=== PATIENT | male | born 1955 | race Caucasian/White ===

== ENCOUNTER 2018-12-02 22:36 | Emergency (ER) | payer MEDICARE, OTHER ==
[~2018-12-02] VITALS: Ht 175.3 cm; Wt 90.7 kg
[~2018-12-02 22:36] MED LIST: ACET500T68 PO; ASPI-482 PO; CALC500T13 PO; CHOL2000 PO; DIVA250T PO; DIVA500T17 PO; DONE10TA7 PO; FLUO40CA9 PO; FLUT9.9S NS; GABA300C18 PO; GEMF600T8 PO; HYDR-2761 PO; HYDR25SU4 RC; LORA10TA68 PO; MODA100T2 PO; MONT10TA9 PO; MULT1TAB52 PO; NIAC1000 PO; OXYB5TAB7 PO; RISP2TAB33 PO; SODI51CR DT; [UNRECOGNIZED DRUG - CODE] TP
[2018-12-02 22:42] VITALS: BP 133/79
[2018-12-02] MEDS ORDERED: DIPH25CA58 PO (23:34)
--- NOTE | 2018-12-02 23:35 | PHYS DOC ---
Past Medical History Past Medical History: Asthma, Dementia, Pancreatitis, Seizure Additional Past Medical Histor: CEREBRAL PALSY, SLEEP APNEA, (MALACHI COLLAZO C SOFTWARE DEVELOPER) Alcohol Use: None Drug Use: None [facility] SOFTWARE DEVELOPER) Adult General Chief Complaint Chief Complaint: SKIN PROBLEM HPI HPI Patient is a 63 year old male who presents with some assisted living and began having a rash that was red and blotchy to the legs and abdomen and on his arm. Patient states it was very itchy. EMS gave patient 50 mg of Benadryl before arrival. (MALACHI COLLAZO C SOFTWARE DEVELOPER) Review of Systems Review of Systems Constitutional: Denies fever or chills [] Eyes: Denies change in visual acuity, redness, or eye pain [] HENT: Denies nasal congestion or sore throat [] Respiratory: Denies cough or shortness of breath [] Cardiovascular: No additional information not addressed in HPI [] GI: Denies abdominal pain, nausea, vomiting, bloody stools or diarrhea [] : Denies dysuria or hematuria [] Musculoskeletal: Denies back pain or joint pain [] Integument: rash or skin lesions [] Neurologic: Denies headache, focal weakness or sensory changes [] All other systems were reviewed and found to be within normal limits, except as documented in this note. ([facility] C SOFTWARE DEVELOPER) Allergies Allergies Allergies Coded Allergies Type Severity Reaction Last Updated Verified No Known Drug Allergies 06/28/17 No (VENECIA CHARLES MD) Physical Exam Physical Exam Constitutional: Well developed, well nourished, no acute distress, non-toxic appearance. [] HENT: Normocephalic, atraumatic, bilateral external ears normal, oropharynx moist, no oral exudates, nose normal. [] Eyes: PERRLA, EOMI, conjunctiva normal, no discharge. [] Neck: Normal range of motion, no tenderness, supple, no stridor. [] Cardiovascular:Heart rate regular rhythm, no murmur [] Lungs & Thorax: Bilateral breath sounds clear to auscultation [] Abdomen: Bowel sounds normal, soft, no tenderness, no masses, no pulsatile masses. [] Skin: Warm, dry, no erythema, + rash. [] Back: No tenderness, no CVA tenderness. [] Extremities: No tenderness, no cyanosis, no clubbing, ROM intact, no edema. [] Neurologic: Alert and oriented X 3, normal motor function, normal sensory function, no focal deficits noted. [] Psychologic: Affect normal, judgement normal, mood normal. [] (MALACHI COLLAZO APRN) Current Patient Data Vital Signs Vital Signs Date Time Temp Pulse Resp B/P (MAP) Pulse Ox O2 Delivery O2 Flow Rate FiO2 12/02/18 22:42 98.3 77 18 133/79 (97) 98 Room Air 98.3 (VENECIA CHARLES MD) EKG EKG [] (MALACHI COLLAZO APRN) Radiology/Procedures Radiology/Procedures [] (MALACHI COLLAZO APRN) Course & Med Decision Making Course & Med Decision Making Patient is a 63 year old male who presents with some assisted living and began having a rash that was red and blotchy to the legs and abdomen and on his arm. Patient states it was very itchy. EMS gave patient 50 mg of Benadryl before arrival. Alert and oriented to self and place. Patient has contractures. Patient states he was itchy and he had a rash but he no longer does. When looking over patient's body there is very slight pink almost the same skin color as rest of his body is blotchy areas of where look to be hives were. Tongue is not swollen, no lesions and mouth are seen. Patient speaks in full clear sentences. Lungs are clear to auscultation in all lobes. Vital signs are within normal limits. Patient will be given discharge instructions for an allergic reaction and facility should continue to give him Benadryl every 6 hours for next 24-48 hours. Patient begins having trouble breathing or tongue begins to swell or hives return he should seek medical help immediately. (MALACHI COLLAZO APRN) Course & Med Decision Making Staff Physician Addendum: I was working in the ER during the course of this patient's visit. I was available for consultation as needed, but I was not directly involved in the care of this patient. (VENECIA CHARLES MD) Dragon Disclaimer Dragon Disclaimer This electronic medical record was generated, in whole or in part, using a voice recognition dictation system. (MALACHI COLLAZO APRN) Departure Departure Impression: Primary Impression: Allergic reaction Disposition: HOME, SELF-CARE Condition: STABLE Referrals: JANNY CULLEN MD (PCP) Patient Instructions: Rash Additional Instructions: Follow up with primary care. Give Benadryl every 6 hours for the next 24-48 hours. If patient begin to have swelling of the tongue, throat or severe hives appears give Benadryl and return to emergency room. Scripts Diphenhydramine Hcl (BENADRYL) 25 Mg Capsule 25 MG PO Q4-6HRS PRN for ALLERGIES, #8 CAP Prov: MALACHI COLLAZO APRN 12/02/18 Problem Qualifiers Primary Impression: Allergic reaction Encounter type: initial encounter Qualified Codes: T78.40XA - Allergy, unspecified, initial encounter MALACHI COLLAZO APRN Dec 02, 2018 23:35 VENECIA CHARLES MD Dec 04, 2018 00:31
== END 2018-12-03 00:10 | disposition home or self-care (01) ==
LOC: ER 22:36
DX: T78.40XA Allergy, unspecified, initial encounter (principal); J45.909 Unspecified asthma, uncomplicated; F03.90 Unspecified dementia, unspecified severity, without behavioral disturbance, psychotic disturbance, mood disturbance, and anxiety; X58.XXXA Exposure to other specified factors, initial encounter
CPT/HCPCS: 99283

== ENCOUNTER 2020-04-18 13:30 | Inpatient (IN) | payer MEDICARE, OTHER ==
[2020-04-18] VITALS (7 sets, daily range): BP systolic 121–140; BP diastolic 62–79
[~2020-04-18] VITALS: Ht 175.3 cm; Wt 103.0 kg
[~2020-04-18 13:30] MED LIST changes: +ACET325T21 PO; +CALC-326 PO; -CALC500T13 PO; +CALC500T14 PO; +CEFTRIAXONE SODIUM IVP; +DIPH25CA58 PO; +DIVA-51 PO; +DIVA-53 PO; +DOXY100T PO; +FLUO40CA2 PO; +GABA-585 PO; +MONT10TA49 PO; -MONT10TA9 PO; +MULT-245 PO; +MULT-445 PO; -MULT1TAB52 PO; +OXYB5TAB10 PO; -OXYB5TAB7 PO; +POTA20TA4 PO; +RISP0.5T24 PO; +SENN-37 PO; +VENTOLIN HFA18 GM INH
[2020-04-18] MEDS ORDERED: diphenhydrAMINE 50 MG/ML VIAL IVP ONE (14:00)
[2020-04-18] MEDS ORDERED: FAMOTIDINE 20 MG/2 ML VIAL IVP ONE (14:00)
[2020-04-18] MEDS ORDERED: EPINEPHrine 1 MG/ML VIAL SQ ONE (14:00)
[2020-04-18] MEDS ORDERED: cefTRIAXone IV Push 1 GM VIAL. IVP ONE (14:00)
[2020-04-18] MEDS ORDERED: DEXAMETHASONE SOD PHOS 4 MG/ML VIAL IVP ONE (14:00)
[2020-04-18] MEDS ORDERED: ALBUTEROL SULFATE 2.5 MG/3 ML NEBU. NEB ONE (14:00)
[2020-04-18 14:07] LABS: BASO # 0.1 x10^3/uL (0.0-0.2); BASO % 1 % (0-3); EOS % 0 % (0-3); HEMATOCRIT 38.4 % (39.0-53.0); HEMOGLOBIN 13.2 g/dL (13.0-17.5); LYMPH # 2.5 x10^3/uL (1.0-4.8); LYMPH % 30 % (24-48); MEAN CORPUSCULAR HEMOGLOBIN 34 pg (25-35); MEAN CORPUSCULAR HGB CONC 34 g/dL (31-37); MEAN CORPUSCULAR VOLUME 98 fL (79-100); MONO # 0.7 x10^3/uL (0.0-1.1); MONO % 8 % (0-9); NEUT # 5.1 x10^3/uL (1.8-7.7); NEUT % 61 % (31-73); PLATELET COUNT 64 x10^3/uL (140-400); RED BLOOD COUNT 3.93 x10^6/uL (4.30-5.70); RED CELL DISTRIBUTION WIDTH 14.4 % (11.5-14.5); WHITE BLOOD COUNT 8.3 x10^3/uL (4.0-11.0)
--- NOTE | 2020-04-18 14:13 | RAD ---
CHEST AP ONLY Clinical History: Reason: Coughs continusly sob, covid? / Spl. Instructions: / History: Technique: AP view of the chest was obtained at 04/18/2020 1:44 PM. Comparison: February 29, 2020. Findings: The heart is normal size. There is low lung volumes causing crowding of pulmonary vasculature. There is patchy perihilar opacities left worse than right. There is elevation of the right hemidiaphragm seen previously. Impression: Bilateral infiltrates likely atypical pneumonia. Electronically signed by: Jered Moreno III, MD (04/18/2020 2:10 PM) [id number]
[2020-04-18 15:42] LABS: CALCIUM 7.9 mg/dL (8.5-10.1); CREATININE 1.2 mg/dL (0.7-1.3); GFR 61.3; POTASSIUM 4.4 mmol/L (3.5-5.1)
[2020-04-18 15:48] LABS: ALBUMIN 2.1 g/dL (3.4-5.0); ALBUMIN/GLOBULIN RATIO 0.6 (1.0-1.7); TOTAL BILIRUBIN 0.6 mg/dL (0.2-1.0); TOTAL PROTEIN 5.7 g/dL (6.4-8.2)
--- NOTE | 2020-04-18 16:38 | PHYS DOC ---
Past Medical History Past Medical History: Asthma, Dementia, Pancreatitis, Seizure Additional Past Medical Histor: CEREBRAL PALSY, SLEEP APNEA, Past Surgical History: Other Additional Past Surgical Histo: unknown Smoking Status: Never Smoker Alcohol Use: None Drug Use: None General Adult EDM: Chief Complaint: SHORTNESS OF BREATH HPI: HPI: Patient is a 64 year old male who presents with respiratory distress. Patient has a history of cerebral palsy and is unable to provide very much history. According to report he is at his baseline mental status. Patient tested positive for alvarez virus last week. He has had an increasing oxygen requirement over the last 2 days. Upon arrival of the EMS he was on room air and had oxygen saturations in the 80s. They placed him on a nonrebreather with significant improvement. Review of Systems: Review of Systems: Unable to obtain due to mental status Heart Score: Risk Factors: Risk Factors: DM, Current or recent (<one month) smoker, HTN, HLP, family history of CAD, obesity. Risk Scores: Score 0 - 3: 2.5% MACE over next 6 weeks - Discharge Home Score 4 - 6: 20.3% MACE over next 6 weeks - Admit for Clinical Observation Score 7 - 10: 72.7% MACE over next 6 weeks - Early Invasive Strategies Current Medications: Current Medications Medications (Trade) Dose Ordered Sig/Wendy Start Time Stop Time Status Last Admin Dose Admin Albuterol Sulfate (Ventolin Neb Soln) 2.5 mg 1X ONCE 04/18/20 14:04/18/20 14:01 DC 04/18/20 14:01 2.5 MG Ceftriaxone Sodium (Rocephin) 1 gm 1X ONCE 04/18/20 14:04/18/20 14:01 DC 04/18/20 13:56 1 GM Dexamethasone Sodium Phosphate (Decadron) 10 mg 1X ONCE 04/18/20 14:04/18/20 14:01 DC 04/18/20 13:56 10 MG Diphenhydramine HCl (Benadryl) 25 mg 1X ONCE 04/18/20 14:04/18/20 14:01 DC 04/18/20 13:55 25 MG Epinephrine HCl (Adrenalin) 0.3 mg 1X ONCE 04/18/20 14:04/18/20 14:01 DC 04/18/20 13:56 0.3 MG Famotidine (Pepcid Vial) 20 mg 1X ONCE 04/18/20 14:00 04/18/20 14:01 DC 04/18/20 13:55 20 MG Allergies: Allergies: Allergies Coded Allergies Type Severity Reaction Last Updated Verified No Known Drug Allergies 06/28/17 No Physical Exam: PE: General: Awake, contractures to right hand, ill-appearing HEENT: Atraumatic, EOMI, PERRL, airway patent, moist oral mucosa, mild swelling of lower lip Neck: Supple, trachea midline Respiratory: Decreased breath sounds bilaterally, diffuse crackles, increased work of breathing, tachypnea CV: Tachycardic, no murmur, cap refill <2 GI: Soft, nondistended, nontender, no masses MSK: No obvious deformities Skin: Warm, dry, intact, diffuse hives Neuro: sensory and motor grossly intact, no focal deficits Psych: Anxious, not suicidal or homicidal Current Patient Data: Labs: Laboratory Tests Test 04/18/20 13:50 04/18/20 15:00 White Blood Count 8.3 x10^3/uL (4.0-11.0) Red Blood Count 3.93 x10^6/uL (4.30-5.70) L Hemoglobin 13.2 g/dL (13.0-17.5) Hematocrit 38.4 % (39.0-53.0) L Mean Corpuscular Volume 98 fL (79-100) Mean Corpuscular Hemoglobin 34 pg (25-35) Mean Corpuscular Hemoglobin Concent 34 g/dL (31-37) Red Cell Distribution Width 14.4 % (11.5-14.5) Platelet Count 64 x10^3/uL (140-400) L Neutrophils (%) (Auto) 61 % (31-73) Lymphocytes (%) (Auto) 30 % (24-48) Monocytes (%) (Auto) 8 % (0-9) Eosinophils (%) (Auto) 0 % (0-3) Basophils (%) (Auto) 1 % (0-3) Neutrophils # (Auto) 5.1 x10^3/uL (1.8-7.7) Lymphocytes # (Auto) 2.5 x10^3/uL (1.0-4.8) Monocytes # (Auto) 0.7 x10^3/uL (0.0-1.1) Eosinophils # (Auto) 0.0 x10^3/uL (0.0-0.7) Basophils # (Auto) 0.1 x10^3/uL (0.0-0.2) D-Dimer (Yasmin) > 20.00 ug/mlFEU Lactic Acid Level 2.4 mmol/L (0.4-2.0) H Sodium Level 139 mmol/L (136-145) Potassium Level 4.4 mmol/L (3.5-5.1) Chloride Level 102 mmol/L (98-107) Carbon Dioxide Level 21 mmol/L (21-32) Anion Gap 16 (6-14) H Blood Urea Nitrogen 23 mg/dL (8-26) Creatinine 1.2 mg/dL (0.7-1.3) Estimated GFR (Cockcroft-Gault) 61.3 BUN/Creatinine Ratio 19 (6-20) Glucose Level 199 mg/dL (70-99) H Calcium Level 7.9 mg/dL (8.5-10.1) L Total Bilirubin 0.6 mg/dL (0.2-1.0) Aspartate Amino Transferase (AST) 25 U/L (15-37) Alanine Aminotransferase (ALT) 6 U/L (16-63) L Alkaline Phosphatase 75 U/L (46-116) Lactate Dehydrogenase 302 U/L (85-227) H Creatine Kinase 26 U/L (39-308) L Troponin I Quantitative < 0.017 ng/mL (0.000-0.055) C-Reactive Protein, Quantitative 185.0 mg/L (0-3.3) H NE-Sgq-B-Type Natriuretic Peptide 400 pg/mL (0-124) H Total Protein 5.7 g/dL (6.4-8.2) L Albumin 2.1 g/dL (3.4-5.0) L Albumin/Globulin Ratio 0.6 (1.0-1.7) L Laboratory Tests 04/18/20 13:50 Laboratory Tests 04/18/20 15:00 Vital Signs: Vital Signs Date Time Temp Pulse Resp B/P (MAP) Pulse Ox O2 Delivery O2 Flow Rate FiO2 04/18/20 14:13 92 NonRebreather Mask 15.0 04/18/20 13:30 98.5 99 25 133/64 (87) 98.5 EKG: EKG: [] Radiology/Procedures: Radiology/Procedures: [] Course & Med Decision Making: Course & Med Decision Making Pertinent Labs and Imaging studies reviewed. (See chart for details) Patient is a 64-year-old male who presents to the emergency room with respiratory failure, high, mild swelling. It appears at this time that patient has 2 separate issues going on. He appears to have anaphylaxis given his hives and swelling. He was given epinephrine, Pepcid, Decadron, Benadryl. Hives and swelling resolved while here in the emergency room. Nursing facility cannot pinpoint any new medication or foods. They are unsure when the hives started. His oxygen requirement also decreased after these medications. Patient also has known coronavirus and does continue to require oxygen. He has diffuse crackles which are consistent with coronavirus. Patient will be admitted for respiratory failure and anaphylaxis. Dragon Disclaimer: Dragon Disclaimer: This electronic medical record was generated, in whole or in part, using a voice recognition dictation system. Departure Departure Impression: Primary Impression: Respiratory failure, acute Additional Impressions: 2019 novel coronavirus disease (COVID-19) Anaphylactic reaction Disposition: ADMITTED INPATIENT Condition: GUARDED Referrals: BRIANA WILLAMS MD (PCP) Justicifation of Admission Dx: Justifications for Admission: Justification of Admission Dx: Yes Respiratory Failure: Severe Resp Distress COVID-19 Assessment: COVID-19 Patient Risks: Age 65 or older: No Sign of co-morbidity: Yes Exp to person + for COVID: Yes Exp to PUI: Yes Travel from affected area: No Lower respiratory symptoms: Yes Fever: Yes PPE Use: Full PPE with N95 mask or PAPR: Yes Critical Care Time Critical Care: Authorized and Performed by: Awa Campos MD Total critical care time: approximately 45 minutes Due to a high probability of clinically significant, life threatening deterio ration, the patient required my highest level of preparedness to intervene emergently and I personally spent this critical care time directly and personally managing the patient. This critical care time included obtaining a history; examining the patient; pulse oximetry; ventilator management if nec essary; ordering and review of studies; arranging urgent treatment with development of a management plan; evaluation of patient's response to treatment; frequent reassessment; discussion with patient/family; and, discussions with other providers. This critical care time was performed to assess and manage the high probability of imminent, life-threatening deterioration that could result in multi-organ failure. It was exclusive of separately billable procedures and treating other patients and teaching time. Please see MDM section and the rest of the note for further information on patient assessment and treatment. AWA CAMPOS MD Apr 18, 2020 16:38
[2020-04-18] MEDS ORDERED: PIP/TAZO PER PHARMACY MC PRN (17:45)
--- NOTE | 2020-04-18 17:54 | HP ---
ADMIT DATE: 04/18/2020 CHIEF COMPLAINT: Respiratory distress. HISTORY OF PRESENT ILLNESS: The patient is a pleasant 64-year-old male who has cerebral palsy. He lives at a facility. He also had COVID-19 syndrome recently. Today, he apparently developed increasing oxygen requirements that has been occurring for 2 days. He was short of breath. He developed a rash. They brought him to the ER. It appears he probably had allergic reaction. We gave him some epinephrine, we are admitting him to the ICU. PAST MEDICAL HISTORY: Recent COVID-19, cerebral palsy, asthma, dementia, pancreatitis, sleep apnea. ALLERGIES: None. FAMILY HISTORY: Diabetes. SOCIAL HISTORY: I believe he lives at a facility. He does not drink, smoke or take drugs. MEDICATIONS: Reviewed, please refer to the MRAD. REVIEW OF SYSTEMS: Unable to obtain. PHYSICAL EXAMINATION: VITALS: Within normal limits and are stable. GENERAL: No apparent distress. Alert and oriented. HEENT: He has 100% nonrebreather. EYES: Extraocular muscles are intact, pupils are equally round and reactive to light and accommodation MUSCULOSKELETAL: Well developed, well nourished, good range of motion ENDOCRINE: No thyromegaly was palpated LYMPHATICS: No cervical chain or axillary nodes were noted HEMATOPOIETIC: No bruising NECK: Supple, no JVD, no thyromegaly was noted. LUNGS: He has some slight crackles. HEART: RRR, S1, S2 present. Peripheral pulses intact, no obvious murmurs were noted. ABDOMEN: Soft, nontender. Positive bowel sounds no organomegaly, normal bowel sounds. EXTREMITIES: Without any cyanosis, clubbing, or edema. Pedal pulses intact, Homans sign is negative. NEUROLOGIC: He does not really respond. PSYCHIATRIC: Normal affect, normal mood. Stable. SKIN: No ulcerations or rashes, good skin turgor, no jaundice. VASCULAR: Good capillary refill, neurovascular bundle appears to be intact. LABORATORY DATA: White count 8, hemoglobin 13, platelets 64. Electrolytes are normal. Troponin is 0. C-reactive protein 185. D-dimer is greater than 20. Chest x-ray; bilateral infiltrates with atypical pneumonia. ASSESSMENT AND PLAN: ICU monitoring. Allergic reaction, abnormal chest x-ray, history of COVID-19 an elevated D-dimer. The patient is being admitted. We will consult Pulmonary Medicine. Give him the allergic reaction protocol including steroids, epinephrine and breathing treatments, Pepcid. Home meds, DVT prophylaxis. Full code. PROGNOSIS: Guarded. KAYLEY ROMAN DO DR: ROSANA/travis JOB#: [id number] / [id number]
--- NOTE | 2020-04-18 18:21 | NUR ---
PT ARRIVED TO ICU AT APPROX 1730 VIA GURNEY WITH ER NURSE. PT CHANGED LITTLE INSERTED WOUND PHOTO TAKEN. PTS SISTER AND MEDICAL DPOA LASHONDA HAINES NOTIFIED THAT THE PT WAS HERE AND WHAT ROOM. [facility] CALLED BY THIS NURSE HOWEVER NO ANSWER. PT IS RESTING QUIETLY AT THIS TIME. WILL CONTINUE TO MONITOR. Addendum: 04/18/20 at 1838 by JARED FAM RN PTS SISTER LASHONDA ADELINA DID STATE THAT THE PT WAS IN FACT A FULL CODE. TRIED CALLING [facility] AGAIN AT [phone] AND REQUESTED EXACT COVID POSITIVE DATES. NURSE ALLISON WAS GIVEN THIS NUMBER TO CALL BACK WITH THE DATES. SHE STATES SHE IS AGENCY AND DOESN'T KNOW WHERE TO LOOK AND IS THE ONLY NURSE ON.
[2020-04-18] MEDS: PIPERACILLIN/TAZOBACTAM 4.5 GM in IV NORMAL SALINE 100ML 100 ML IV SCH (19:39)
[2020-04-18 19:42] LABS: BILIRUBIN,URINE LARGE (NEG); CLARITY,URINE CLEAR; NITRITE,URINE POSITIVE (NEG); PROTEIN,URINE 30 mg/dL (NEG-TRACE)
[2020-04-18 19:45] LABS: COLOR,URINE AMBER
[2020-04-18] MEDS ORDERED: VITS A & D/LANOLIN TOPICAL OINTMENT 42GM TUBE. TP PRN (19:45)
[2020-04-18] MEDS ORDERED: NYSTATIN TOPICAL POWDER 15GM BOTTLE. TP PRN (19:45)
[2020-04-18 19:46] LABS: HYALINE CASTS, URINE MANY /HPF
[2020-04-18 19:50] LABS: BACTERIA,URINE FEW /HPF (0-FEW); RBC,URINE 20-40 /HPF (0-2)
--- NOTE | 2020-04-18 19:50 | NUR ---
ESTEFANY NURSE AT [facility] RETURNED CALL TO STATE THAT THE PT HAD A COVID TEST 04/09/20 WITH POSITIVE RESULTS RETURNED ON 04/11/20.
[2020-04-18] MEDS: AZITHROMYCIN 500 MG in IV NORMAL SALINE 250ML 250 ML IV SCH (20:31)
[2020-04-18] MEDS ORDERED: FAMOTIDINE 20 MG TABLET. PO SCH (21:00)
[2020-04-18] MEDS: diphenhydrAMINE 50 MG/ML VIAL IVP SCH (22:12)
[2020-04-18] MEDS: IV NORMAL SALINE 1000ML BAG 1,000 ML IV SCH (22:13)
[2020-04-18] MEDS ORDERED: ENOXAPARIN 40 MG/0.4 ML SYRINGE. SQ SCH (23:00)
[2020-04-19] VITALS (23 sets, daily range): BP systolic 76–138; BP diastolic 46–77
[2020-04-19] MEDS: PIPERACILLIN/TAZOBACTAM 4.5 GM in IV NORMAL SALINE 100ML 100 ML IV SCH ×5 (00:11→23:49)
--- NOTE | 2020-04-19 03:03 | NUR ---
PT. REFUSES SUCTIONING AND ORAL CARE, BUT WAS ABLE TO DO LIP CARE.
[2020-04-19] MEDS ORDERED: ACETAMINOPHEN 325 MG TABLET. PO PRN (08:30)
[2020-04-19] MEDS: OXYBUTYNIN CHLORIDE 5 MG TABLET PO SCH ×2 (09:00→20:23)
[2020-04-19] MEDS: SENNOSIDES/DOCUSATE 8.6/50MG TABLET. PO SCH ×2 (09:00→20:24)
[2020-04-19] MEDS ORDERED: methylPREDNISolone SOD SUCC PF 40 MG/ML VIAL. IV SCH (09:00)
[2020-04-19] MEDS: CALCIUM CARB/VIT D3 500/200 TABLET. PO SCH (09:00)
[2020-04-19] MEDS: GABAPENTIN 100 MG CAPSULE. PO SCH ×2 (09:00→15:14)
[2020-04-19] MEDS: DONEPEZIL HCL 10 MG TABLET. PO SCH (09:00)
[2020-04-19] MEDS: DIVALPROEX DELAYED RELEASE 250 MG TABLET.DR. PO SCH (09:00)
[2020-04-19] MEDS ORDERED: AZITHRMYCN 500MG IVPB FOR OMNI 250 ML IV SCH (09:00)
[2020-04-19] MEDS: diphenhydrAMINE 50 MG/ML VIAL IVP SCH ×2 (11:22→20:23)
--- NOTE | 2020-04-19 12:11 | PDOC ---
PULMONARY PROGRESS NOTES Subjective Full note dictated# [id number] Vitals Vital Signs Date Time Temp Pulse Resp B/P (MAP) Pulse Ox O2 Delivery O2 Flow Rate FiO2 04/19/20 11:00 98.1 63 87 NonRebreather Mask 15.0 98.1 04/19/20 06:08 24 Comments Patient seen during the COVID- pandemic visual exam performed patient is resting comfortably on nonrebreather with no obvious signs of distress and no obvious rash or edema. Labs Laboratory Tests Test 04/18/20 13:50 04/18/20 15:00 04/18/20 17:30 04/18/20 17:40 White Blood Count 8.3 x10^3/uL (4.0-11.0) Red Blood Count 3.93 x10^6/uL (4.30-5.70) Hemoglobin 13.2 g/dL (13.0-17.5) Hematocrit 38.4 % (39.0-53.0) Mean Corpuscular Volume 98 fL (79-100) Mean Corpuscular Hemoglobin 34 pg (25-35) Mean Corpuscular Hemoglobin Concent 34 g/dL (31-37) Red Cell Distribution Width 14.4 % (11.5-14.5) Platelet Count 64 x10^3/uL (140-400) Neutrophils (%) (Auto) 61 % (31-73) Lymphocytes (%) (Auto) 30 % (24-48) Monocytes (%) (Auto) 8 % (0-9) Eosinophils (%) (Auto) 0 % (0-3) Basophils (%) (Auto) 1 % (0-3) Neutrophils # (Auto) 5.1 x10^3/uL (1.8-7.7) Lymphocytes # (Auto) 2.5 x10^3/uL (1.0-4.8) Monocytes # (Auto) 0.7 x10^3/uL (0.0-1.1) Eosinophils # (Auto) 0.0 x10^3/uL (0.0-0.7) Basophils # (Auto) 0.1 x10^3/uL (0.0-0.2) D-Dimer (Yasmin) > 20.00 ug/mlFEU Lactic Acid Level 2.4 mmol/L (0.4-2.0) 2.6 mmol/L (0.4-2.0) Sodium Level 139 mmol/L (136-145) Potassium Level 4.4 mmol/L (3.5-5.1) Chloride Level 102 mmol/L (98-107) Carbon Dioxide Level 21 mmol/L (21-32) Anion Gap 16 (6-14) Blood Urea Nitrogen 23 mg/dL (8-26) Creatinine 1.2 mg/dL (0.7-1.3) Estimated GFR (Cockcroft-Gault) 61.3 BUN/Creatinine Ratio 19 (6-20) Glucose Level 199 mg/dL (70-99) Calcium Level 7.9 mg/dL (8.5-10.1) Total Bilirubin 0.6 mg/dL (0.2-1.0) Aspartate Amino Transf (AST/SGOT) 25 U/L (15-37) Alanine Aminotransferase (ALT/SGPT) 6 U/L (16-63) Alkaline Phosphatase 75 U/L (46-116) Lactate Dehydrogenase 302 U/L (85-227) Creatine Kinase 26 U/L (39-308) Troponin I Quantitative < 0.017 ng/mL (0.000-0.055) C-Reactive Protein, Quantitative 185.0 mg/L (0-3.3) HC-Xse-B-Type Natriuretic Peptide 400 pg/mL (0-124) Total Protein 5.7 g/dL (6.4-8.2) Albumin 2.1 g/dL (3.4-5.0) Albumin/Globulin Ratio 0.6 (1.0-1.7) Urine Collection Type U cath Urine Color [place] Urine Clarity Clear Urine pH 6.0 (<5.0-8.0) Urine Specific [place] 1.025 (1.000-1.030) Urine Protein 30 mg/dL (NEG-TRACE) Urine Glucose (UA) 100 mg/dL (NEG) Urine Ketones (Stick) 40 mg/dL (NEG) Urine Blood Negative (NEG) Urine Nitrite Positive (NEG) Urine Bilirubin Large (NEG) Urine Urobilinogen Dipstick 1.0 mg/dL (0.2 mg/dL) Urine Leukocyte Esterase Small (NEG) Urine RBC 20-40 /HPF (0-2) Urine WBC 1-4 /HPF (0-4) Urine Bacteria Few /HPF (0-FEW) Urine Hyaline Casts Many /HPF Urine Mucus Marked /LPF Test 04/19/20 08:40 Lactic Acid Level 1.4 mmol/L (0.4-2.0) Laboratory Tests Test 04/18/20 13:50 04/18/20 15:00 04/18/20 17:30 04/18/20 17:40 White Blood Count 8.3 x10^3/uL (4.0-11.0) Red Blood Count 3.93 x10^6/uL (4.30-5.70) Hemoglobin 13.2 g/dL (13.0-17.5) Hematocrit 38.4 % (39.0-53.0) Mean Corpuscular Volume 98 fL (79-100) Mean Corpuscular Hemoglobin 34 pg (25-35) Mean Corpuscular Hemoglobin Concent 34 g/dL (31-37) Red Cell Distribution Width 14.4 % (11.5-14.5) Platelet Count 64 x10^3/uL (140-400) Neutrophils (%) (Auto) 61 % (31-73) Lymphocytes (%) (Auto) 30 % (24-48) Monocytes (%) (Auto) 8 % (0-9) Eosinophils (%) (Auto) 0 % (0-3) Basophils (%) (Auto) 1 % (0-3) Neutrophils # (Auto) 5.1 x10^3/uL (1.8-7.7) Lymphocytes # (Auto) 2.5 x10^3/uL (1.0-4.8) Monocytes # (Auto) 0.7 x10^3/uL (0.0-1.1) Eosinophils # (Auto) 0.0 x10^3/uL (0.0-0.7) Basophils # (Auto) 0.1 x10^3/uL (0.0-0.2) D-Dimer (Yasmin) > 20.00 ug/mlFEU Lactic Acid Level 2.4 mmol/L (0.4-2.0) 2.6 mmol/L (0.4-2.0) Sodium Level 139 mmol/L (136-145) Potassium Level 4.4 mmol/L (3.5-5.1) Chloride Level 102 mmol/L (98-107) Carbon Dioxide Level 21 mmol/L (21-32) Anion Gap 16 (6-14) Blood Urea Nitrogen 23 mg/dL (8-26) Creatinine 1.2 mg/dL (0.7-1.3) Estimated GFR (Cockcroft-Gault) 61.3 BUN/Creatinine Ratio 19 (6-20) Glucose Level 199 mg/dL (70-99) Calcium Level 7.9 mg/dL (8.5-10.1) Total Bilirubin 0.6 mg/dL (0.2-1.0) Aspartate Amino Transf (AST/SGOT) 25 U/L (15-37) Alanine Aminotransferase (ALT/SGPT) 6 U/L (16-63) Alkaline Phosphatase 75 U/L (46-116) Lactate Dehydrogenase 302 U/L (85-227) Creatine Kinase 26 U/L (39-308) Troponin I Quantitative < 0.017 ng/mL (0.000-0.055) C-Reactive Protein, Quantitative 185.0 mg/L (0-3.3) UQ-Ttz-I-Type Natriuretic Peptide 400 pg/mL (0-124) Total Protein 5.7 g/dL (6.4-8.2) Albumin 2.1 g/dL (3.4-5.0) Albumin/Globulin Ratio 0.6 (1.0-1.7) Urine Collection Type U cath Urine Color [place] Urine Clarity Clear Urine pH 6.0 (<5.0-8.0) Urine Specific [place] 1.025 (1.000-1.030) Urine Protein 30 mg/dL (NEG-TRACE) Urine Glucose (UA) 100 mg/dL (NEG) Urine Ketones (Stick) 40 mg/dL (NEG) Urine Blood Negative (NEG) Urine Nitrite Positive (NEG) Urine Bilirubin Large (NEG) Urine Urobilinogen Dipstick 1.0 mg/dL (0.2 mg/dL) Urine Leukocyte Esterase Small (NEG) Urine RBC 20-40 /HPF (0-2) Urine WBC 1-4 /HPF (0-4) Urine Bacteria Few /HPF (0-FEW) Urine Hyaline Casts Many /HPF Urine Mucus Marked /LPF Test 04/19/20 08:40 Lactic Acid Level 1.4 mmol/L (0.4-2.0) Medications Active Scripts Medications Dose Route/Sig Max Daily Dose Days Date Category Doxycycline Hyclate 100 Mg Tablet 100 Mg PO BID 10 03/06/20 Rx [Ceftriaxone Sodium] 2 GM Vial 2 Gm IVP Q24H 10 03/06/20 Rx Risperdal (Risperidone) 0.5 Mg Tablet 3.5 Mg PO QHS 02/29/20 Reported Risperdal (Risperidone) 2 Mg Tablet 2 Mg PO DAILY 02/29/20 Reported Divalproex Sodium 250 Mg Tablet. 750 Mg PO DAILY 02/29/20 Reported Fluoxetine Hcl 40 Mg Capsule 1 Cap PO HS 02/29/20 Reported Divalproex Sodium 500 Mg Tablet.dr 1,000 Mg PO HS 02/29/20 Reported Ventolin Hfa Inhaler (Albuterol Sulfate) 18 Gm Hfa.aer.ad 2 Puff INH PRN Q4HRS 02/29/20 Reported Oxybutynin Chloride 5 Mg Tablet 1 Tab PO BID 02/29/20 Reported Senokot-S Tablet (Sennosides/Docusate Sodium) 1 Each Tablet 1 Tab PO BID 30 02/29/20 Reported Gabapentin (Gabapentin) 100 Mg Capsule 100 Mg PO DAILY08 02/29/20 Reported Gabapentin (Gabapentin) 300 Mg Capsule 300 Mg PO HS 02/29/20 Reported Donepezil Hcl 10 Mg Tablet 1 Tab PO DAILY 02/29/20 Reported Modafinil 100 Mg Tablet 100 Mg PO DAILY 02/29/20 Reported Multi Vitamin Daily (Multivitamin) 1 Each Tablet 1 Tab PO DAILY 30 02/29/20 Reported Oyster Shell Calcium + D Tab (Calcium Carbonate/Vitamin D3) 1 Each Tablet 1 Tab PO DAILY 30 02/29/20 Reported Gabapentin (Gabapentin) 100 Mg Capsule 100 Mg PO DAILY16 02/29/20 Reported Acetaminophen 325 Mg Tablet 1 Tab PO PRN Q6HRS PRN 30 02/29/20 Reported Potassium Chloride (Potassium Chloride) 20 Meq Tablet.er 20 Meq PO BID 02/29/20 Reported Vitamin E Ointment (Vit E Acetate/Wheat Germ/Aloe) 60 Gm Oint...g. 60 Gm TP HS 06/20/17 Reported Niaspan (Niacin) 1,000 Mg Tab.er.24h 1,000 Mg PO HS 06/20/17 Reported Vitamin D (Cholecalciferol (Vitamin D3)) 2,000 Unit Capsule 2,000 Unit PO HS 06/20/17 Reported Aspir 81 (Aspirin) 81 Mg Tablet. 81 Mg PO HS 06/20/17 Reported Comments Impression: Bilateral infiltrates likely atypical pneumonia. Impression . Acute hypoxic respiratory failure likely secondary to atypical pneumonia COVID-19 infection/pneumonia Hypotension Elevated d-dimer Anaphylactic reaction Thrombocytopenia Severe sepsis Right lower extremity cellulitis Cerebral palsy Obstructive sleep apnea Dysphasia Seizure disorder Plan . Patient seen doing the COVID-19 pandemic, will try to discuss advanced directive with family Case discussed with RT. Continue current nonrebreather, use Vapotherm if needed to keep oxygen saturations 92% or above-- follow clinical course make adjustments as needed Patient was treated for his allergic reaction/anaphylaxis with steroids epinephrine and breathing treatments and Pepcid. Continue empiric antibiotics Continue IV steroids Change Lovenox to treatment dose and obtain bilateral lower extremity duplex We did consider treatment with convalescent serum or Remdesivir however as the patient has been positive for COVID-19 for over a week we do not feel that they would offer any benefit at this time. Continue home regiment for seizure disorder and mood disorder Monitor platelet count while on anticoagulation therapy DVT and GI prophylaxis Discussed with RN and RT Total critical care time 45 minutes discussing the case with care team members, reviewing diagnostics in the medical record. GISELA MONTANEZ MD Apr 19, 2020 12:11
--- NOTE | 2020-04-19 12:49 | CONS ---
DATE OF CONSULTATION: 04/19/2020 PULMONARY CONSULTATION Elena Boland APRN, dictating for Gisela Montanez MD REASON FOR CONSULTATION: Respiratory distress/COVID-19 infection. HISTORY OF PRESENT ILLNESS: This is a pleasant 64-year-old male, who comes from the [facility], who was tested positive for COVID-19 syndrome last week. Yesterday, he developed increasing oxygenation requirements and increased shortness of breath. He also developed a rash and was brought to the Emergency Department for increased respiratory distress and an allergic reaction. He also has a chronic cough that has been worse; however, nonproductive. Next, he was admitted to the Intensive Care Unit and is being treated on nonrebreather, steroids, bronchodilators, and empiric antibiotics. PAST MEDICAL HISTORY: Cerebral palsy, asthma, dementia, chronic pancreatitis, obstructive sleep apnea, pneumonia, dysphagia, seizure disorder, hyperlipidemia, mood disorder. PAST SURGICAL HISTORY: Unobtainable secondary to the patient's clinical state. He has underlying cerebral palsy and is a poor historian. ALLERGIES: No known drug allergies. FAMILY HISTORY: There is a documentation of a family history of diabetes. SOCIAL HISTORY: There is no reported alcohol use, tobacco use, or recreational drug use. He is a current resident at the [facility]. MEDICATIONS: Reviewed per the [facility]. REVIEW OF SYSTEMS: A 14-point review of systems is reviewed that the patient is negative except for pertinent positives in the HPI. LABORATORY DATA: White blood cell count is 8.3, hemoglobin is 13.2, hematocrit 38.4, platelet count 64. Chemistry: Sodium 139, potassium 4.4, BUN 23, creatinine 1.2. LDH 302. C-reactive protein 185. D-dimer is greater than 20. IMAGING: He had a chest x-ray that showed bilateral infiltrates, likely atypical pneumonia. PHYSICAL EXAMINATION: GENERAL: The patient was seen during the COVID-19 pandemic. A visual examination was performed. The patient is resting comfortably on nonrebreather with no obvious signs of distress or obvious signs of rash or edema. IMPRESSION: 1. Acute hypoxic respiratory failure secondary to atypical pneumonia. 2. COVID-19 infection/pneumonia. 3. Hypotension. 4. Elevated D-dimer. 5. ANAPHYLACTIC/ALLERGIC REACTION. 6. Thrombocytopenia. 7. Severe sepsis. 8. Right lower extremity cellulitis. 9. Cerebral palsy. 10. Obstructive sleep apnea. 11. Dysphagia. 12. Seizure disorder. PLAN: 1. We will continue current nonrebreather support. We will use Vapotherm as needed to keep oxygen saturations greater than 92% or above. We will follow clinical course and make adjustments as needed. 2. The patient was treated for his ALLERGIC REACTION/ANAPHYLAXIS with steroids, epinephrine, and breathing treatments and Pepcid. 3. Continue empiric antibiotics. 4. IV steroids. 5. Change Lovenox to treatment dose and obtain bilateral lower extremities as his D-dimer was elevated at a level greater than 20. 6. We did consider treatment with convalescent serum or remdesivir; however, as the patient has been positive for COVID-19 for over a week, we do not feel that it would offer any benefit at this time. 7. We will continue his home regimen for seizure disorder and mood disorder. 8. Monitor platelet count on anticoagulation therapy. 9. Vasopressors for hypotension to keep the MAP greater than 65. 10. DVT and GI prophylaxis. 11. Discussed with RN and RT. 12. Total critical care time 45 minutes discussing the case with care members reviewing diagnostics in the medical record. GISELA MONTANEZ MD DR: SHAUN/travis JOB#: [id number] / [id number]
[2020-04-19] MEDS: IV NORMAL SALINE 1000ML BAG 1,000 ML IV SCH ×2 (15:09→23:49)
[2020-04-19] MEDS: methylPREDNISolone SOD SUCC PF 40 MG/ML VIAL. IV SCH ×2 (15:14→22:31)
--- NOTE | 2020-04-19 15:48 | NUR ---
PT SISTER LASHONDA HAINES CALLED AND SPOKE WITH ME REGARDING DPOA STATUS AND HER SISTER WELL AND THEY DISCUSSED WITH EACH OTHER THAT THEY WOULD LIKE TO MAKE THEIR BROTHER A DNR/DNI. SPOKE WITH DR URIOSTEGUI WELL DR MONTANEZ SPOKE WITH THE FAMILY REGARDING THIS. PTS FAMILY WILL CALL TOMORROW TO SPEAK WITH SOCIAL WORK REGARDING ANY PAPERWORK NEEDED. DR URIOSTEGUI NOTIFIED OF THE PHONE CALL AND THE PTS STATUS CHANGED IN THE COMPUTER.
[2020-04-19] MEDS ORDERED: GABAPENTIN 100 MG CAPSULE. PO SCH (16:00)
--- NOTE | 2020-04-19 16:23 | PDOC ---
PROGRESS NOTES Chief Complaint Chief Complaint COVID 19 pos infection acute hypoxic respiratory failure sepsis acute on chronic encephalopathy, cerebral palsy obese, BMI 33 severe malnutrition, POA History of Present Illness History of Present Illness his sister is DPOA and called, changed code status to NO code per prior wishes and paperwrok no visitor policy in hospital fro COVID 19 patient cont current appears stable, hypoxic Vitals Vitals Vital Signs Date Time Temp Pulse Resp B/P (MAP) Pulse Ox O2 Delivery O2 Flow Rate FiO2 04/19/20 16:00 98.0 5 91/52 (65) 93 15.0 98.0 04/19/20 16:00 Non-Rebreather 04/19/20 06:08 24 Labs LABS Laboratory Tests Test 04/18/20 17:30 04/18/20 17:40 04/19/20 08:40 Urine Collection Type U cath Urine Color [place] Urine Clarity Clear Urine pH 6.0 (<5.0-8.0) Urine Specific [place] 1.025 (1.000-1.030) Urine Protein 30 mg/dL (NEG-TRACE) Urine Glucose (UA) 100 mg/dL (NEG) Urine Ketones (Stick) 40 mg/dL (NEG) Urine Blood Negative (NEG) Urine Nitrite Positive (NEG) Urine Bilirubin Large (NEG) Urine Urobilinogen Dipstick 1.0 mg/dL (0.2 mg/dL) Urine Leukocyte Esterase Small (NEG) Urine RBC 20-40 /HPF (0-2) Urine WBC 1-4 /HPF (0-4) Urine Bacteria Few /HPF (0-FEW) Urine Hyaline Casts Many /HPF Urine Mucus Marked /LPF Lactic Acid Level 2.6 mmol/L (0.4-2.0) 1.4 mmol/L (0.4-2.0) Assessment and Plan Assessmemt and Plan Problems Medical Problems: (1) 2019 novel coronavirus disease (COVID-19) Status: Acute (2) Anaphylactic reaction Status: Acute (3) Respiratory failure, acute Status: Acute Comment Review of Relevant I have reviewed the following items nara (where applicable) has been applied. Labs Laboratory Tests Test 04/18/20 13:50 04/18/20 15:00 04/18/20 17:30 04/18/20 17:40 White Blood Count 8.3 x10^3/uL (4.0-11.0) Red Blood Count 3.93 x10^6/uL (4.30-5.70) Hemoglobin 13.2 g/dL (13.0-17.5) Hematocrit 38.4 % (39.0-53.0) Mean Corpuscular Volume 98 fL (79-100) Mean Corpuscular Hemoglobin 34 pg (25-35) Mean Corpuscular Hemoglobin Concent 34 g/dL (31-37) Red Cell Distribution Width 14.4 % (11.5-14.5) Platelet Count 64 x10^3/uL (140-400) Neutrophils (%) (Auto) 61 % (31-73) Lymphocytes (%) (Auto) 30 % (24-48) Monocytes (%) (Auto) 8 % (0-9) Eosinophils (%) (Auto) 0 % (0-3) Basophils (%) (Auto) 1 % (0-3) Neutrophils # (Auto) 5.1 x10^3/uL (1.8-7.7) Lymphocytes # (Auto) 2.5 x10^3/uL (1.0-4.8) Monocytes # (Auto) 0.7 x10^3/uL (0.0-1.1) Eosinophils # (Auto) 0.0 x10^3/uL (0.0-0.7) Basophils # (Auto) 0.1 x10^3/uL (0.0-0.2) D-Dimer (Yasmin) > 20.00 ug/mlFEU Lactic Acid Level 2.4 mmol/L (0.4-2.0) 2.6 mmol/L (0.4-2.0) Sodium Level 139 mmol/L (136-145) Potassium Level 4.4 mmol/L (3.5-5.1) Chloride Level 102 mmol/L (98-107) Carbon Dioxide Level 21 mmol/L (21-32) Anion Gap 16 (6-14) Blood Urea Nitrogen 23 mg/dL (8-26) Creatinine 1.2 mg/dL (0.7-1.3) Estimated GFR (Cockcroft-Gault) 61.3 BUN/Creatinine Ratio 19 (6-20) Glucose Level 199 mg/dL (70-99) Calcium Level 7.9 mg/dL (8.5-10.1) Total Bilirubin 0.6 mg/dL (0.2-1.0) Aspartate Amino Transf (AST/SGOT) 25 U/L (15-37) Alanine Aminotransferase (ALT/SGPT) 6 U/L (16-63) Alkaline Phosphatase 75 U/L (46-116) Lactate Dehydrogenase 302 U/L (85-227) Creatine Kinase 26 U/L (39-308) Troponin I Quantitative < 0.017 ng/mL (0.000-0.055) C-Reactive Protein, Quantitative 185.0 mg/L (0-3.3) RO-Zps-S-Type Natriuretic Peptide 400 pg/mL (0-124) Total Protein 5.7 g/dL (6.4-8.2) Albumin 2.1 g/dL (3.4-5.0) Albumin/Globulin Ratio 0.6 (1.0-1.7) Urine Collection Type U cath Urine Color [place] Urine Clarity Clear Urine pH 6.0 (<5.0-8.0) Urine Specific [place] 1.025 (1.000-1.030) Urine Protein 30 mg/dL (NEG-TRACE) Urine Glucose (UA) 100 mg/dL (NEG) Urine Ketones (Stick) 40 mg/dL (NEG) Urine Blood Negative (NEG) Urine Nitrite Positive (NEG) Urine Bilirubin Large (NEG) Urine Urobilinogen Dipstick 1.0 mg/dL (0.2 mg/dL) Urine Leukocyte Esterase Small (NEG) Urine RBC 20-40 /HPF (0-2) Urine WBC 1-4 /HPF (0-4) Urine Bacteria Few /HPF (0-FEW) Urine Hyaline Casts Many /HPF Urine Mucus Marked /LPF Test 04/19/20 08:40 Lactic Acid Level 1.4 mmol/L (0.4-2.0) Laboratory Tests Test 04/18/20 17:30 04/18/20 17:40 04/19/20 08:40 Urine Collection Type U cath Urine Color [place] Urine Clarity Clear Urine pH 6.0 (<5.0-8.0) Urine Specific [place] 1.025 (1.000-1.030) Urine Protein 30 mg/dL (NEG-TRACE) Urine Glucose (UA) 100 mg/dL (NEG) Urine Ketones (Stick) 40 mg/dL (NEG) Urine Blood Negative (NEG) Urine Nitrite Positive (NEG) Urine Bilirubin Large (NEG) Urine Urobilinogen Dipstick 1.0 mg/dL (0.2 mg/dL) Urine Leukocyte Esterase Small (NEG) Urine RBC 20-40 /HPF (0-2) Urine WBC 1-4 /HPF (0-4) Urine Bacteria Few /HPF (0-FEW) Urine Hyaline Casts Many /HPF Urine Mucus Marked /LPF Lactic Acid Level 2.6 mmol/L (0.4-2.0) 1.4 mmol/L (0.4-2.0) Microbiology 04/18/20 Blood Culture - Preliminary, Resulted NO GROWTH AFTER 1 DAY Medications Current Medications Dexamethasone Sodium Phosphate (Decadron) 10 mg 1X ONCE IVP Last administered on 04/18/20at 13:56; Start 04/18/20 at 14:00; Stop 04/18/20 at 14:01; Status DC Diphenhydramine HCl (Benadryl) 25 mg 1X ONCE IVP Last administered on 04/18/20at 13:55; Start 04/18/20 at 14:00; Stop 04/18/20 at 14:01; Status DC Epinephrine HCl (Adrenalin) 0.3 mg 1X ONCE SQ Last administered on 04/18/20at 13:56; Start 04/18/20 at 14:00; Stop 04/18/20 at 14:01; Status DC Albuterol Sulfate (Ventolin Neb Soln) 2.5 mg 1X ONCE NEB Last administered on 04/18/20at 14:01; Start 04/18/20 at 14:00; Stop 04/18/20 at 14:01; Status DC Famotidine (Pepcid Vial) 20 mg 1X ONCE IVP Last administered on 04/18/20at 13:55; Start 04/18/20 at 14:00; Stop 04/18/20 at 14:01; Status DC Ceftriaxone Sodium (Rocephin) 1 gm 1X ONCE IVP Last administered on 04/18/20at 13:56; Start 04/18/20 at 14:00; Stop 04/18/20 at 14:01; Status DC Methylprednisolone Sodium Succinate (SOLU-Medrol 40MG VIAL) 30 mg DAILY IV Last administered on 04/19/20at 11:22; Start 04/19/20 at 09:00; Stop 04/19/20 at 12:15; Status DC Famotidine (Pepcid) 20 mg BID PO ; Start 04/18/20 at 21:00; Stop 04/19/20 at 07:58; Status DC Diphenhydramine HCl (Benadryl) 25 mg BID IVP Last administered on 04/19/20at 11:22; Start 04/18/20 at 21:00 Piperacillin Sod/ Tazobactam Sod (Zosyn Per Pharmacy) 1 each PRN DAILY PRN MC SEE COMMENTS; Start 04/18/20 at 17:45 Azithromycin 250 ml @ 250 mls/hr DAILY IV ; Start 04/19/20 at 09:00; Stop 04/18/20 at 17:55; Status DC Azithromycin 500 mg/Sodium Chloride 250 ml @ 250 mls/hr Q24H IV Last administered on 04/18/20at 20:31; Start 04/18/20 at 19:00 Piperacillin Sod/ Tazobactam Sod 4.5 gm/Sodium Chloride 100 ml @ 200 mls/hr Q6HRS IV Last administered on 04/19/20at 15:09; Start 04/18/20 at 18:00 Nystatin (Nystop) 1 kimmy PRN BID PRN TP RASH; Start 04/18/20 at 19:45 Vitamin A/Vitamin D (Vitamin A & D Ointment) 1 kimmy PRN Q1HR PRN TP SKIN PROTECTION; Start 04/18/20 at 19:45 Sodium Chloride 1,000 ml @ 75 mls/hr [id number] IV Last administered on 04/19/20at 15:09; Start 04/18/20 at 22:00 Enoxaparin Sodium (Lovenox 40mg Syringe) 40 mg Q24H SQ Last administered on 04/18/20at 22:13; Start 04/18/20 at 23:00; Stop 04/19/20 at 12:00; Status DC Acetaminophen (Tylenol) 325 mg PRN Q6HRS PRN PO PAIN; Start 04/19/20 at 08:30 Aspirin (Ecotrin) 81 mg HS PO ; Start 04/19/20 at 21:00 Calcium/Vitamin D (Oscal D 500mg/ 200uts) 1 tab DAILY PO ; Start 04/19/20 at 09:00 Divalproex Sodium (Depakote) 750 mg DAILY PO ; Start 04/19/20 at 09:00 Divalproex Sodium (Depakote) 1,000 mg HS PO ; Start 04/19/20 at 21:00 Donepezil HCl (Aricept) 10 mg DAILY PO ; Start 04/19/20 at 09:00 Gabapentin (Neurontin) 100 mg BID@0800,1600 PO ; Start 04/19/20 at 09:00 Gabapentin (Neurontin) 100 mg DAILY16 PO ; Start 04/19/20 at 16:00; Status UNV Gabapentin (Neurontin) 300 mg HS PO ; Start 04/19/20 at 21:00 Oxybutynin Chloride (Ditropan) 5 mg BID PO ; Start 04/19/20 at 09:00 Senna/Docusate Sodium (Senna Plus) 1 tab BID PO ; Start 04/19/20 at 09:00 Fluoxetine HCl (PROzac) 40 mg QHS PO ; Start 04/19/20 at 21:00 Enoxaparin Sodium (Lovenox Per Pharmacy Treatment Dosing) 1 each PRN DAILY PRN MC SEE COMMENTS; Start 04/19/20 at 12:00 Enoxaparin Sodium (Lovenox 100mg Syringe) 100 mg Q12HR SQ Last administered on 04/19/20at 15:13; Start 04/19/20 at 12:30 Methylprednisolone Sodium Succinate (SOLU-Medrol 40MG VIAL) 60 mg Q8HRS IV Last administered on 04/19/20at 15:14; Start 04/19/20 at 14:00 Active Scripts Active Doxycycline Hyclate 100 Mg Tablet 100 Mg PO BID 10 Days [Ceftriaxone Sodium] 2 GM Vial 2 Gm IVP Q24H 10 Days Reported Risperdal (Risperidone) 0.5 Mg Tablet 3.5 Mg PO QHS Risperdal (Risperidone) 2 Mg Tablet 2 Mg PO DAILY Divalproex Sodium 250 Mg Tablet.dr 750 Mg PO DAILY Fluoxetine Hcl 40 Mg Capsule 1 Cap PO HS Divalproex Sodium 500 Mg Tablet.dr 1,000 Mg PO HS Ventolin Hfa Inhaler (Albuterol Sulfate) 18 Gm Hfa.aer.ad 2 Puff INH PRN Q4HRS Oxybutynin Chloride 5 Mg Tablet 1 Tab PO BID Senokot-S Tablet (Sennosides/Docusate Sodium) 1 Each Tablet 1 Tab PO BID 30 Days Gabapentin (Gabapentin) 100 Mg Capsule 100 Mg PO DAILY08 Gabapentin (Gabapentin) 300 Mg Capsule 300 Mg PO HS Donepezil Hcl 10 Mg Tablet 1 Tab PO DAILY Modafinil 100 Mg Tablet 100 Mg PO DAILY Multi Vitamin Daily (Multivitamin) 1 Each Tablet 1 Tab PO DAILY 30 Days Oyster Shell Calcium + D Tab (Calcium Carbonate/Vitamin D3) 1 Each Tablet 1 Tab PO DAILY 30 Days Gabapentin (Gabapentin) 100 Mg Capsule 100 Mg PO DAILY16 Acetaminophen 325 Mg Tablet 1 Tab PO PRN Q6HRS PRN 30 Days Potassium Chloride (Potassium Chloride) 20 Meq Tablet.er 20 Meq PO BID Vitamin E Ointment (Vit E Acetate/Wheat Germ/Aloe) 60 Gm Oint...g. 60 Gm TP HS Niaspan (Niacin) 1,000 Mg Tab.er.24h 1,000 Mg PO HS Vitamin D (Cholecalciferol (Vitamin D3)) 2,000 Unit Capsule 2,000 Unit PO HS Aspir 81 (Aspirin) 81 Mg Tablet.dr 81 Mg PO HS Vitals/I & O Vital Sign - Last 24 Hours 04/18/20 04/18/20 04/18/20 04/18/20 16:30 17:00 18:00 19:00 Pulse 94 84 93 98 Resp 22 B/P (MAP) 142/71 (94) 123/77 (92) 133/69 (90) 139/66 (90) Pulse Ox 95 93 O2 Delivery NonRebreather Mask NonRebreather Mask NonRebreather Mask NonRebreather Mask O2 Flow Rate 10.0 15.0 15.0 15.0 04/18/20 04/18/20 04/18/20 04/18/20 19:53 20:00 20:00 21:07 Temp 99.5 99.5 Pulse 98 102 Resp 22 B/P (MAP) 121/65 (83) 137/70 (92) Pulse Ox 97 93 O2 Delivery Non-Rebreather NonRebreather Mask Non-Rebreather NonRebreather Mask O2 Flow Rate 15.0 15.0 15.0 15.0 04/18/20 04/18/20 04/19/20 04/19/20 22:00 23:10 00:01 00:01 Temp 98.7 98.7 Pulse 83 94 90 Resp 22 22 24 B/P (MAP) 140/79 (99) 124/62 (82) 134/69 (90) Pulse Ox 92 90 89 O2 Delivery Nasal Cannula Nasal Cannula Nasal Cannula Non-Rebreather O2 Flow Rate 6.0 6.0 6.0 15.0 04/19/20 04/19/20 04/19/20 04/19/20 01:00 02:00 03:08 04:05 Pulse 86 94 88 Resp B/P (MAP) 138/61 (86) 123/73 (90) 135/72 (93) Pulse Ox 87 93 94 O2 Delivery Nasal Cannula NonRebreather Mask NonRebreather Mask Non-Rebreather O2 Flow Rate 6.0 15.0 15.0 15.0 04/19/20 04/19/20 04/19/20 04/19/20 04:07 05:00 06:08 07:00 Temp 98.5 98.5 Pulse 86 86 78 85 Resp B/P (MAP) 123/77 (92) 113/61 (78) 96/59 (71) 96/59 (71) Pulse Ox 92 92 91 88 O2 Delivery NonRebreather Mask NonRebreather Mask NonRebreather Mask No nRebreather Mask O2 Flow Rate 15.0 15.0 15.0 15.0 04/19/20 04/19/20 04/19/20 04/19/20 08:00 08:00 09:00 10:00 Temp 98.1 98.1 Pulse 76 82 68 B/P (MAP) 107/57 (74) 110/58 (75) 105/55 (72) Pulse Ox 83 87 91 O2 Delivery NonRebreather Mask Non-Rebreather NonRebreather Mask O2 Flow Rate 15.0 15.0 15.0 15.0 04/19/20 04/19/20 04/19/20 04/19/20 11:00 12:00 12:00 13:00 Temp 98.1 98.1 Pulse 63 63 63 B/P (MAP) 105/55 (72) 83/56 (65) Pulse Ox 87 87 95 O2 Delivery NonRebreather Mask Non-Rebreather O2 Flow Rate 15.0 15.0 15.0 15.0 04/19/20 04/19/20 04/19/20 04/19/20 14:00 15:00 16:00 16:00 Temp 98.0 98.0 Pulse 63 63 5 B/P (MAP) 83/56 (65) 109/61 (77) 91/52 (65) Pulse Ox 95 93 93 O2 Delivery NonRebreather Mask Non-Rebreather O2 Flow Rate 15.0 15.0 15.0 15.0 Intake and Output 04/18/20 04/18/20 04/19/20 15:00 23:00 07:00 Intake Total 0 ml 0 ml Output Total 200 ml 625 ml Balance -200 ml -625 ml Justicifation of Admission Dx: Justifications for Admission: Justification of Admission Dx: Yes Respiratory Failure: Severe Resp Distress SHIV URIOSTEGUI MD Apr 19, 2020 16:23
[2020-04-19] MEDS: ZINC SULFATE 220 MG CAPSULE. PO SCH (17:00)
[2020-04-19] MEDS: CHOLECALCIFEROL (VITAMIN D3) 5,000 UNIT CAPSULE PO SCH (17:00)
[2020-04-19] MEDS ORDERED: STERILE WATER for RESP 1,000 ML BAG. INH PRN (17:15)
[2020-04-19] MEDS: DIVALPROEX DELAYED RELEASE 500 MG TABLET.DR. PO SCH (20:23)
[2020-04-19] MEDS: FLUoxetine HCL 20 MG CAPSULE PO SCH (20:24)
[2020-04-19] MEDS: GABAPENTIN 300 MG CAPSULE. PO SCH (20:24)
[2020-04-19] MEDS: ASPIRIN ENTERIC COATED 81 MG TABLET.DR. PO SCH (20:24)
[2020-04-19] MEDS: AZITHROMYCIN 500 MG in IV NORMAL SALINE 250ML 250 ML IV SCH (20:30)
[2020-04-20] VITALS (24 sets, daily range): BP systolic 83–144; BP diastolic 33–88
[2020-04-20] MEDS: methylPREDNISolone SOD SUCC PF 40 MG/ML VIAL. IV SCH ×3 (05:35→21:22)
[2020-04-20] MEDS: PIPERACILLIN/TAZOBACTAM 4.5 GM in IV NORMAL SALINE 100ML 100 ML IV SCH ×4 (05:35→23:45)
[2020-04-20] MEDS: DONEPEZIL HCL 10 MG TABLET. PO SCH (07:09)
[2020-04-20] MEDS: GABAPENTIN 100 MG CAPSULE. PO SCH ×2 (07:09→16:00)
[2020-04-20] MEDS: SENNOSIDES/DOCUSATE 8.6/50MG TABLET. PO SCH ×2 (07:10→19:29)
[2020-04-20] MEDS: CHOLECALCIFEROL (VITAMIN D3) 5,000 UNIT CAPSULE PO SCH (07:10)
[2020-04-20] MEDS: CALCIUM CARB/VIT D3 500/200 TABLET. PO SCH (07:10)
[2020-04-20] MEDS: ZINC SULFATE 220 MG CAPSULE. PO SCH (07:10)
[2020-04-20] MEDS: OXYBUTYNIN CHLORIDE 5 MG TABLET PO SCH ×2 (07:10→19:28)
[2020-04-20] MEDS: DIVALPROEX DELAYED RELEASE 250 MG TABLET.DR. PO SCH (07:10)
[2020-04-20] MEDS: IV NORMAL SALINE 1000ML BAG 1,000 ML IV SCH (07:38)
[2020-04-20] MEDS: diphenhydrAMINE 50 MG/ML VIAL IVP SCH ×2 (07:42→19:28)
--- NOTE | 2020-04-20 09:02 | PDOC ---
PULMONARY PROGRESS NOTES Subjective Patient more awake alert he is not short of air Vitals Vital Signs Date Time Temp Pulse Resp B/P (MAP) Pulse Ox O2 Delivery O2 Flow Rate FiO2 04/20/20 06:00 63 99/52 (68) 96 Vasotherm 35.0 04/20/20 04:00 99.0 99.0 General: Alert Lungs: Crackles Cardiovascular: S1, S2 Abdomen: Soft Neuro Exam: Alert Extremities: Other (Mild edema) Skin: Warm Labs Laboratory Tests Test 04/18/20 13:50 04/18/20 15:00 04/18/20 17:30 04/18/20 17:40 White Blood Count 8.3 x10^3/uL (4.0-11.0) Red Blood Count 3.93 x10^6/uL (4.30-5.70) Hemoglobin 13.2 g/dL (13.0-17.5) Hematocrit 38.4 % (39.0-53.0) Mean Corpuscular Volume 98 fL (79-100) Mean Corpuscular Hemoglobin 34 pg (25-35) Mean Corpuscular Hemoglobin Concent 34 g/dL (31-37) Red Cell Distribution Width 14.4 % (11.5-14.5) Platelet Count 64 x10^3/uL (140-400) Neutrophils (%) (Auto) 61 % (31-73) Lymphocytes (%) (Auto) 30 % (24-48) Monocytes (%) (Auto) 8 % (0-9) Eosinophils (%) (Auto) 0 % (0-3) Basophils (%) (Auto) 1 % (0-3) Neutrophils # (Auto) 5.1 x10^3/uL (1.8-7.7) Lymphocytes # (Auto) 2.5 x10^3/uL (1.0-4.8) Monocytes # (Auto) 0.7 x10^3/uL (0.0-1.1) Eosinophils # (Auto) 0.0 x10^3/uL (0.0-0.7) Basophils # (Auto) 0.1 x10^3/uL (0.0-0.2) D-Dimer (Yasmin) > 20.00 ug/mlFEU Lactic Acid Level 2.4 mmol/L (0.4-2.0) 2.6 mmol/L (0.4-2.0) Sodium Level 139 mmol/L (136-145) Potassium Level 4.4 mmol/L (3.5-5.1) Chloride Level 102 mmol/L (98-107) Carbon Dioxide Level 21 mmol/L (21-32) Anion Gap 16 (6-14) Blood Urea Nitrogen 23 mg/dL (8-26) Creatinine 1.2 mg/dL (0.7-1.3) Estimated GFR (Cockcroft-Gault) 61.3 BUN/Creatinine Ratio 19 (6-20) Glucose Level 199 mg/dL (70-99) Calcium Level 7.9 mg/dL (8.5-10.1) Total Bilirubin 0.6 mg/dL (0.2-1.0) Aspartate Amino Transf (AST/SGOT) 25 U/L (15-37) Alanine Aminotransferase (ALT/SGPT) 6 U/L (16-63) Alkaline Phosphatase 75 U/L (46-116) Lactate Dehydrogenase 302 U/L (85-227) Creatine Kinase 26 U/L (39-308) Troponin I Quantitative < 0.017 ng/mL (0.000-0.055) C-Reactive Protein, Quantitative 185.0 mg/L (0-3.3) CM-Uwr-D-Type Natriuretic Peptide 400 pg/mL (0-124) Total Protein 5.7 g/dL (6.4-8.2) Albumin 2.1 g/dL (3.4-5.0) Albumin/Globulin Ratio 0.6 (1.0-1.7) Urine Collection Type U cath Urine Color [place] Urine Clarity Clear Urine pH 6.0 (<5.0-8.0) Urine Specific [place] 1.025 (1.000-1.030) Urine Protein 30 mg/dL (NEG-TRACE) Urine Glucose (UA) 100 mg/dL (NEG) Urine Ketones (Stick) 40 mg/dL (NEG) Urine Blood Negative (NEG) Urine Nitrite Positive (NEG) Urine Bilirubin Large (NEG) Urine Urobilinogen Dipstick 1.0 mg/dL (0.2 mg/dL) Urine Leukocyte Esterase Small (NEG) Urine RBC 20-40 /HPF (0-2) Urine WBC 1-4 /HPF (0-4) Urine Bacteria Few /HPF (0-FEW) Urine Hyaline Casts Many /HPF Urine Mucus Marked /LPF Test 04/19/20 08:40 Lactic Acid Level 1.4 mmol/L (0.4-2.0) Medications Active Scripts Medications Dose Route/Sig Max Daily Dose Days Date Category Doxycycline Hyclate 100 Mg Tablet 100 Mg PO BID 10 03/06/20 Rx [Ceftriaxone Sodium] 2 GM Vial 2 Gm IVP Q24H 10 03/06/20 Rx Risperdal (Risperidone) 0.5 Mg Tablet 3.5 Mg PO QHS 02/29/20 Reported Risperdal (Risperidone) 2 Mg Tablet 2 Mg PO DAILY 02/29/20 Reported Divalproex Sodium 250 Mg Tablet.dr 750 Mg PO DAILY 02/29/20 Reported Fluoxetine Hcl 40 Mg Capsule 1 Cap PO HS 02/29/20 Reported Divalproex Sodium 500 Mg Tablet.dr 1,000 Mg PO HS 02/29/20 Reported Ventolin Hfa Inhaler (Albuterol Sulfate) 18 Gm Hfa.aer.ad 2 Puff INH PRN Q4HRS 02/29/20 Reported Oxybutynin Chloride 5 Mg Tablet 1 Tab PO BID 02/29/20 Reported Senokot-S Tablet (Sennosides/Docusate Sodium) 1 Each Tablet 1 Tab PO BID 30 02/29/20 Reported Gabapentin (Gabapentin) 100 Mg Capsule 100 Mg PO DAILY08 02/29/20 Reported Gabapentin (Gabapentin) 300 Mg Capsule 300 Mg PO HS 02/29/20 Reported Donepezil Hcl 10 Mg Tablet 1 Tab PO DAILY 02/29/20 Reported Modafinil 100 Mg Tablet 100 Mg PO DAILY 02/29/20 Reported Multi Vitamin Daily (Multivitamin) 1 Each Tablet 1 Tab PO DAILY 30 02/29/20 Reported Oyster Shell Calcium + D Tab (Calcium Carbonate/Vitamin D3) 1 Each Tablet 1 Tab PO DAILY 30 02/29/20 Reported Gabapentin (Gabapentin) 100 Mg Capsule 100 Mg PO DAILY16 02/29/20 Reported Acetaminophen 325 Mg Tablet 1 Tab PO PRN Q6HRS PRN 30 02/29/20 Reported Potassium Chloride (Potassium Chloride) 20 Meq Tablet.er 20 Meq PO BID 02/29/20 Reported Vitamin E Ointment (Vit E Acetate/Wheat Germ/Aloe) 60 Gm Oint...g. 60 Gm TP HS 06/20/17 Reported Niaspan (Niacin) 1,000 Mg Tab.er.24h 1,000 Mg PO HS 06/20/17 Reported Vitamin D (Cholecalciferol (Vitamin D3)) 2,000 Unit Capsule 2,000 Unit PO HS 06/20/17 Reported Aspir 81 (Aspirin) 81 Mg Tablet. 81 Mg PO HS 06/20/17 Reported Comments Impression: Bilateral infiltrates likely atypical pneumonia. Impression . Acute hypoxic respiratory failure likely secondary to atypical pneumonia COVID-19 infection/pneumonia Hypotension Elevated d-dimer Anaphylactic reaction Thrombocytopenia Severe sepsis Right lower extremity cellulitis Cerebral palsy Obstructive sleep apnea Dysphasia Seizure disorder Plan . Continue oxygen supplementation, at times patient takes his oxygen off Case discussed with RT. try nasal cannula Patient was treated for his allergic reaction/anaphylaxis with steroids epinephrine and breathing treatments and Pepcid. Continue empiric antibiotics Continue IV steroids Change Lovenox to treatment dose and obtain bilateral lower extremity duplex We did consider treatment with convalescent serum or Remdesivir however as the patient has been positive for COVID-19 for over a week we do not feel that they would offer any benefit at this time. Continue home regiment for seizure disorder and mood disorder Monitor platelet count while on anticoagulation therapy DVT and GI prophylaxis Discussed with RN and RT Total critical care time 45 minutes discussing the case with care team members, reviewing diagnostics in the medical record. GISELA MONTANEZ MD Apr 20, 2020 09:02
[2020-04-20 11:09] LABS: BASE EXCESS ABG -1 mmol/L (-3-3); HCO3 ABG 25 mmol/L (21-28); PCO2 ABG 42 mmHg (35-46); PO2 ABG 84 mmHg (65-108); SAT O2 ABG 95 % (92-99)
[2020-04-20 11:34] LABS: FIO2 ABG 100
--- NOTE | 2020-04-20 11:34 | NUR ---
SS following up with discharge planning. SS reviewed pt chart and discussed with pt RN. Pt is COVID19 positive. Pt is LT resident from [facility] and [facility], ; fax [phone]. Per RN, pt on non-rebreather. Pt on IV Zosyn and Azithromycin. Pt DNR. SS received contact with pt's family, Sandra Michael, , requesting update. SS provided pt's family with update. Sandra requested to be contacted if decisions needed to be made in regards to pt's care. SS will continue to follow for discharge planning.
--- NOTE | 2020-04-20 15:40 | NUR ---
Wound Care Photo assessment done due to COVID 19 status. Pt has buttock maceration with open areas. Recommend A&D ointment BID and PRN. WC will continue to follow for possible changes.
[2020-04-20] MEDS: AZITHROMYCIN 500 MG in IV NORMAL SALINE 250ML 250 ML IV SCH (18:14)
[2020-04-20] MEDS: ASPIRIN ENTERIC COATED 81 MG TABLET.DR. PO SCH ×2 (19:28→21:00)
[2020-04-20] MEDS: DIVALPROEX DELAYED RELEASE 500 MG TABLET.DR. PO SCH ×2 (19:28→21:00)
[2020-04-20] MEDS: GABAPENTIN 300 MG CAPSULE. PO SCH (19:29)
[2020-04-20] MEDS: FLUoxetine HCL 20 MG CAPSULE PO SCH (19:29)
[2020-04-21] VITALS (15 sets, daily range): BP systolic 105–141; BP diastolic 50–68
[2020-04-21] MEDS: IV NORMAL SALINE 1000ML BAG 1,000 ML IV SCH ×2 (01:45→19:51)
[2020-04-21] MEDS: methylPREDNISolone SOD SUCC PF 40 MG/ML VIAL. IV SCH ×3 (05:45→23:18)
[2020-04-21] MEDS: PIPERACILLIN/TAZOBACTAM 4.5 GM in IV NORMAL SALINE 100ML 100 ML IV SCH ×4 (05:46→23:43)
[2020-04-21] MEDS: GABAPENTIN 100 MG CAPSULE. PO SCH ×3 (08:00→15:46)
--- NOTE | 2020-04-21 08:46 | PDOC ---
PULMONARY PROGRESS NOTES Subjective Patient more awake alert he is not short of air Vitals Vital Signs Date Time Temp Pulse Resp B/P (MAP) Pulse Ox O2 Delivery O2 Flow Rate FiO2 04/21/20 07:47 99.5 99.5 04/21/20 07:00 69 22 118/54 (75) 94 Nasal Cannula 5.0 General: Alert Lungs: Crackles Cardiovascular: S1, S2 Abdomen: Soft Neuro Exam: Alert Extremities: Other (Mild edema) Skin: Warm Labs Laboratory Tests Test 04/20/20 09:10 O2 Saturation 95 % (92-99) Arterial Blood pH 7.38 (7.35-7.45) Arterial Blood pCO2 at Patient Temp 42 mmHg (35-46) Arterial Blood pO2 at Patient Temp 84 mmHg (65-108) Arterial Blood HCO3 25 mmol/L (21-28) Arterial Blood Base Excess -1 mmol/L (-3-3) FiO2 100 Laboratory Tests Test 04/20/20 09:10 O2 Saturation 95 % (92-99) Arterial Blood pH 7.38 (7.35-7.45) Arterial Blood pCO2 at Patient Temp 42 mmHg (35-46) Arterial Blood pO2 at Patient Temp 84 mmHg (65-108) Arterial Blood HCO3 25 mmol/L (21-28) Arterial Blood Base Excess -1 mmol/L (-3-3) FiO2 100 Medications Active Scripts Medications Dose Route/Sig Max Daily Dose Days Date Category Doxycycline Hyclate 100 Mg Tablet 100 Mg PO BID 10 03/06/20 Rx [Ceftriaxone Sodium] 2 GM Vial 2 Gm IVP Q24H 10 03/06/20 Rx Risperdal (Risperidone) 0.5 Mg Tablet 3.5 Mg PO QHS 02/29/20 Reported Risperdal (Risperidone) 2 Mg Tablet 2 Mg PO DAILY 02/29/20 Reported Divalproex Sodium 250 Mg Tablet.dr 750 Mg PO DAILY 02/29/20 Reported Fluoxetine Hcl 40 Mg Capsule 1 Cap PO HS 02/29/20 Reported Divalproex Sodium 500 Mg Tablet.dr 1,000 Mg PO HS 02/29/20 Reported Ventolin Hfa Inhaler (Albuterol Sulfate) 18 Gm Hfa.aer.ad 2 Puff INH PRN Q4HRS 02/29/20 Reported Oxybutynin Chloride 5 Mg Tablet 1 Tab PO BID 02/29/20 Reported Senokot-S Tablet (Sennosides/Docusate Sodium) 1 Each Tablet 1 Tab PO BID 30 02/29/20 Reported Gabapentin (Gabapentin) 100 Mg Capsule 100 Mg PO DAILY08 02/29/20 Reported Gabapentin (Gabapentin) 300 Mg Capsule 300 Mg PO HS 02/29/20 Reported Donepezil Hcl 10 Mg Tablet 1 Tab PO DAILY 02/29/20 Reported Modafinil 100 Mg Tablet 100 Mg PO DAILY 02/29/20 Reported Multi Vitamin Daily (Multivitamin) 1 Each Tablet 1 Tab PO DAILY 30 02/29/20 Reported Oyster Shell Calcium + D Tab (Calcium Carbonate/Vitamin D3) 1 Each Tablet 1 Tab PO DAILY 30 02/29/20 Reported Gabapentin (Gabapentin) 100 Mg Capsule 100 Mg PO DAILY16 02/29/20 Reported Acetaminophen 325 Mg Tablet 1 Tab PO PRN Q6HRS PRN 30 02/29/20 Reported Potassium Chloride (Potassium Chloride) 20 Meq Tablet.er 20 Meq PO BID 02/29/20 Reported Vitamin E Ointment (Vit E Acetate/Wheat Germ/Aloe) 60 Gm Oint...g. 60 Gm TP HS 06/20/17 Reported Niaspan (Niacin) 1,000 Mg Tab.er.24h 1,000 Mg PO HS 06/20/17 Reported Vitamin D (Cholecalciferol (Vitamin D3)) 2,000 Unit Capsule 2,000 Unit PO HS 06/20/17 Reported Aspir 81 (Aspirin) 81 Mg Tablet.dr 81 Mg PO HS 06/20/17 Reported Comments Impression: Bilateral infiltrates likely atypical pneumonia. Impression . Acute hypoxic respiratory failure likely secondary to atypical pneumonia COVID-19 infection/pneumonia Hypotension Elevated d-dimer Anaphylactic reaction Thrombocytopenia Severe sepsis Right lower extremity cellulitis Cerebral palsy Obstructive sleep apnea Dysphasia Seizure disorder Plan . Okay to transfer to the floor Venous Dopplers pending if negative will decrease dosage to prophylaxis Case discussed with RT. try nasal cannula Patient was treated for his allergic reaction/anaphylaxis with steroids epinephrine and breathing treatments and Pepcid. Continue empiric antibiotics Continue IV steroids Change Lovenox to treatment dose and obtain bilateral lower extremity duplex Continue home regiment for seizure disorder and mood disorder Monitor platelet count while on anticoagulation therapy DVT and GI prophylaxis Discussed with RN and RT Cumulative critical care time of 30 minutes reviewing data, labs, chest x-ray and formulating a plan GISELA MOTNANEZ MD Apr 21, 2020 08:45
[2020-04-21] MEDS: ZINC SULFATE 220 MG CAPSULE. PO SCH ×2 (09:00→09:52)
[2020-04-21] MEDS: DONEPEZIL HCL 10 MG TABLET. PO SCH ×2 (09:00→09:53)
[2020-04-21] MEDS: OXYBUTYNIN CHLORIDE 5 MG TABLET PO SCH ×3 (09:00→21:00)
[2020-04-21] MEDS: SENNOSIDES/DOCUSATE 8.6/50MG TABLET. PO SCH ×3 (09:00→21:00)
[2020-04-21] MEDS: DIVALPROEX DELAYED RELEASE 250 MG TABLET.DR. PO SCH ×2 (09:00→09:54)
[2020-04-21] MEDS: CHOLECALCIFEROL (VITAMIN D3) 5,000 UNIT CAPSULE PO SCH ×2 (09:00→09:53)
[2020-04-21] MEDS: CALCIUM CARB/VIT D3 500/200 TABLET. PO SCH ×2 (09:00→09:53)
--- NOTE | 2020-04-21 09:04 | PDOC ---
PROGRESS NOTES Chief Complaint Chief Complaint LATE ENTRY, pt seen 7.6, eval, discussed with RN, then computer went down COVID 19 infection acute hypoxic respiratory failure sepsis acute on chronic encephalopathy, cerebral palsy obese, BMI 33 severe malnutrition, POA History of Present Illness History of Present Illness his sister is DPOA and called, changed code status to NO code per prior wishes and paperwrok no visitor policy in hospital fro COVID 19 patient cont current appears stable, hypoxic Vitals Vitals Vital Signs Date Time Temp Pulse Resp B/P (MAP) Pulse Ox O2 Delivery O2 Flow Rate FiO2 04/21/20 07:47 99.5 99.5 04/21/20 07:00 69 22 118/54 (75) 94 Nasal Cannula 5.0 Physical Exam Lungs: Crackles Labs LABS Laboratory Tests Test 04/20/20 09:10 O2 Saturation 95 % (92-99) Arterial Blood pH 7.38 (7.35-7.45) Arterial Blood pCO2 at Patient Temp 42 mmHg (35-46) Arterial Blood pO2 at Patient Temp 84 mmHg (65-108) Arterial Blood HCO3 25 mmol/L (21-28) Arterial Blood Base Excess -1 mmol/L (-3-3) FiO2 100 Assessment and Plan Assessmemt and Plan Problems Medical Problems: (1) 2019 novel coronavirus disease (COVID-19) Status: Acute (2) Anaphylactic reaction Status: Acute (3) Respiratory failure, acute Status: Acute Comment Review of Relevant I have reviewed the following items nara (where applicable) has been applied. Labs Laboratory Tests Test 04/20/20 09:10 O2 Saturation 95 % (92-99) Arterial Blood pH 7.38 (7.35-7.45) Arterial Blood pCO2 at Patient Temp 42 mmHg (35-46) Arterial Blood pO2 at Patient Temp 84 mmHg (65-108) Arterial Blood HCO3 25 mmol/L (21-28) Arterial Blood Base Excess -1 mmol/L (-3-3) FiO2 100 Laboratory Tests Test 04/20/20 09:10 O2 Saturation 95 % (92-99) Arterial Blood pH 7.38 (7.35-7.45) Arterial Blood pCO2 at Patient Temp 42 mmHg (35-46) Arterial Blood pO2 at Patient Temp 84 mmHg (65-108) Arterial Blood HCO3 25 mmol/L (21-28) Arterial Blood Base Excess -1 mmol/L (-3-3) FiO2 100 Microbiology 04/18/20 Urine Culture - Final, Complete 04/18/20 Blood Culture - Preliminary, Resulted NO GROWTH AFTER 2 DAYS Medications Current Medications Dexamethasone Sodium Phosphate (Decadron) 10 mg 1X ONCE IVP Last administered on 04/18/20at 13:56; Start 04/18/20 at 14:00; Stop 04/18/20 at 14:01; Status DC Diphenhydramine HCl (Benadryl) 25 mg 1X ONCE IVP Last administered on 04/18/20at 13:55; Start 04/18/20 at 14:00; Stop 04/18/20 at 14:01; Status DC Epinephrine HCl (Adrenalin) 0.3 mg 1X ONCE SQ Last administered on 04/18/20at 13:56; Start 04/18/20 at 14:00; Stop 04/18/20 at 14:01; Status DC Albuterol Sulfate (Ventolin Neb Soln) 2.5 mg 1X ONCE NEB Last administered on 04/18/20at 14:01; Start 04/18/20 at 14:00; Stop 04/18/20 at 14:01; Status DC Famotidine (Pepcid Vial) 20 mg 1X ONCE IVP Last administered on 04/18/20at 13:55; Start 04/18/20 at 14:00; Stop 04/18/20 at 14:01; Status DC Ceftriaxone Sodium (Rocephin) 1 gm 1X ONCE IVP Last administered on 04/18/20at 13:56; Start 04/18/20 at 14:00; Stop 04/18/20 at 14:01; Status DC Methylprednisolone Sodium Succinate (SOLU-Medrol 40MG VIAL) 30 mg DAILY IV Last administered on 04/19/20at 11:22; Start 04/19/20 at 09:00; Stop 04/19/20 at 12:15; Status DC Famotidine (Pepcid) 20 mg BID PO ; Start 04/18/20 at 21:00; Stop 04/19/20 at 07:58; Status DC Diphenhydramine HCl (Benadryl) 25 mg BID IVP Last administered on 04/20/20at 07:42; Start 04/18/20 at 21:00 Piperacillin Sod/ Tazobactam Sod (Zosyn Per Pharmacy) 1 each PRN DAILY PRN MC SEE COMMENTS; Start 04/18/20 at 17:45 Azithromycin 250 ml @ 250 mls/hr DAILY IV ; Start 04/19/20 at 09:00; Stop 04/18/20 at 17:55; Status DC Azithromycin 500 mg/Sodium Chloride 250 ml @ 250 mls/hr Q24H IV Last administered on 04/20/20at 18:14; Start 04/18/20 at 19:00 Piperacillin Sod/ Tazobactam Sod 4.5 gm/Sodium Chloride 100 ml @ 200 mls/hr Q6HRS IV Last administered on 04/21/20at 05:46; Start 04/18/20 at 18:00 Nystatin (Nystop) 1 kimmy PRN BID PRN TP RASH; Start 04/18/20 at 19:45 Vitamin A/Vitamin D (Vitamin A & D Ointment) 1 kimmy PRN Q1HR PRN TP SKIN PROTECTION; Start 04/18/20 at 19:45 Sodium Chloride 1,000 ml @ 75 mls/hr [id number] IV Last administered on 04/21/20at 01:45; Start 04/18/20 at 22:00 Enoxaparin Sodium (Lovenox 40mg Syringe) 40 mg Q24H SQ Last administered on 04/18/20at 22:13; Start 04/18/20 at 23:00; Stop 04/19/20 at 12:00; Status DC Acetaminophen (Tylenol) 325 mg PRN Q6HRS PRN PO PAIN; Start 04/19/20 at 08:30 Aspirin (Ecotrin) 81 mg HS PO ; Start 04/19/20 at 21:00 Calcium/Vitamin D (Oscal D 500mg/ 200uts) 1 tab DAILY PO ; Start 04/19/20 at 09:00 Divalproex Sodium (Depakote) 750 mg DAILY PO ; Start 04/19/20 at 09:00 Divalproex Sodium (Depakote) 1,000 mg HS PO ; Start 04/19/20 at 21:00 Donepezil HCl (Aricept) 10 mg DAILY PO ; Start 04/19/20 at 09:00 Gabapentin (Neurontin) 100 mg BID@0800,1600 PO ; Start 04/19/20 at 09:00 Gabapentin (Neurontin) 100 mg DAILY16 PO ; Start 04/19/20 at 16:00; Status UNV Gabapentin (Neurontin) 300 mg HS PO ; Start 04/19/20 at 21:00 Oxybutynin Chloride (Ditropan) 5 mg BID PO ; Start 04/19/20 at 09:00 Senna/Docusate Sodium (Senna Plus) 1 tab BID PO ; Start 04/19/20 at 09:00 Fluoxetine HCl (PROzac) 40 mg QHS PO ; Start 04/19/20 at 21:00 Enoxaparin Sodium (Lovenox Per Pharmacy Treatment Dosing) 1 each PRN DAILY PRN MC SEE COMMENTS; Start 04/19/20 at 12:00 Enoxaparin Sodium (Lovenox 100mg Syringe) 100 mg Q12HR SQ Last administered on 04/20/20at 21:22; Start 04/19/20 at 12:30 Methylprednisolone Sodium Succinate (SOLU-Medrol 40MG VIAL) 60 mg Q8HRS IV Last administered on 04/21/20at 05:45; Start 04/19/20 at 14:00 Zinc Sulfate (Orazinc) 220 mg DAILY PO ; Start 04/19/20 at 17:00 Vitamin D (Vitamin D3) 5,000 unit DAILY PO ; Start 04/19/20 at 17:00 Sterile Water (WATER for RESP) 1,000 ml CONT PRN INH VIA VAPOTHERM DEVICE Last administered on 04/20/20at 01:54; Start 04/19/20 at 17:15 Active Scripts Active Doxycycline Hyclate 100 Mg Tablet 100 Mg PO BID 10 Days [Ceftriaxone Sodium] 2 GM Vial 2 Gm IVP Q24H 10 Days Reported Risperdal (Risperidone) 0.5 Mg Tablet 3.5 Mg PO QHS Risperdal (Risperidone) 2 Mg Tablet 2 Mg PO DAILY Divalproex Sodium 250 Mg Tablet.dr 750 Mg PO DAILY Fluoxetine Hcl 40 Mg Capsule 1 Cap PO HS Divalproex Sodium 500 Mg Tablet.dr 1,000 Mg PO HS Ventolin Hfa Inhaler (Albuterol Sulfate) 18 Gm Hfa.aer.ad 2 Puff INH PRN Q4HRS Oxybutynin Chloride 5 Mg Tablet 1 Tab PO BID Senokot-S Tablet (Sennosides/Docusate Sodium) 1 Each Tablet 1 Tab PO BID 30 Days Gabapentin (Gabapentin) 100 Mg Capsule 100 Mg PO DAILY08 Gabapentin (Gabapentin) 300 Mg Capsule 300 Mg PO HS Donepezil Hcl 10 Mg Tablet 1 Tab PO DAILY Modafinil 100 Mg Tablet 100 Mg PO DAILY Multi Vitamin Daily (Multivitamin) 1 Each Tablet 1 Tab PO DAILY 30 Days Oyster Shell Calcium + D Tab (Calcium Carbonate/Vitamin D3) 1 Each Tablet 1 Tab PO DAILY 30 Days Gabapentin (Gabapentin) 100 Mg Capsule 100 Mg PO DAILY16 Acetaminophen 325 Mg Tablet 1 Tab PO PRN Q6HRS PRN 30 Days Potassium Chloride (Potassium Chloride) 20 Meq Tablet.er 20 Meq PO BID Vitamin E Ointment (Vit E Acetate/Wheat Germ/Aloe) 60 Gm Oint...g. 60 Gm TP HS Niaspan (Niacin) 1,000 Mg Tab.er.24h 1,000 Mg PO HS Vitamin D (Cholecalciferol (Vitamin D3)) 2,000 Unit Capsule 2,000 Unit PO HS Aspir 81 (Aspirin) 81 Mg Tablet.dr 81 Mg PO HS Vitals/I & O Vital Sign - Last 24 Hours 04/20/20 04/20/20 04/20/20 04/20/20 10:00 11:00 12:00 12:00 Temp 98.7 98.7 Pulse 62 56 63 Resp 20 B/P (MAP) 102/56 (71) 90/55 (67) 120/66 (84) Pulse Ox 97 97 98 O2 Delivery NonRebreather Mask NonRebreather Mask NonRebreather Mask Non- Rebreather O2 Flow Rate 15.0 15.0 15.0 15.0 04/20/20 04/20/20 04/20/20 04/20/20 13:00 14:00 15:00 16:05 Temp 97.9 97.9 Pulse 58 90 90 Resp 20 B/P (MAP) 113/57 (75) 140/67 (91) 131/59 (83) Pulse Ox 97 97 98 O2 Delivery NonRebreather Mask NonRebreather Mask NonRebreather Mask Non- Rebreather O2 Flow Rate 15.0 15.0 15.0 15.0 04/20/20 04/20/20 04/20/20 04/20/20 16:13 16:16 17:05 18:00 Pulse 92 65 60 B/P (MAP) 144/88 (106) 118/61 (80) 123/70 (87) Pulse Ox 94 94 96 94 O2 Delivery Nasal Cannula Nasal Cannula Nasal Cannula Nasal Cannula O2 Flow Rate 5.0 5.0 5.0 5.0 04/20/20 04/20/20 04/20/20 04/20/20 19:00 20:00 20:00 21:00 Temp 98.1 98.1 Pulse 69 63 63 Resp 20 B/P (MAP) 110/71 (84) 120/78 (92) 120/78 (92) Pulse Ox 97 96 96 O2 Delivery Nasal Cannula Nasal Cannula Nasal Cannula Nasal Cannula O2 Flow Rate 5.0 5.0 5.0 5.0 04/20/20 04/20/20 04/21/20 04/21/20 22:00 23:00 00:00 00:00 Temp 98.3 98.3 Pulse 48 62 71 Resp 20 B/P (MAP) 113/60 (77) 125/59 (81) 130/60 (83) Pulse Ox 96 93 93 O2 Delivery Nasal Cannula Nasal Cannula Nasal Cannula Nasal Cannula O2 Flow Rate 5.0 5.0 5.0 5.0 04/21/20 04/21/20 04/21/20 04/21/20 01:00 02:00 03:00 04:00 Temp 98.6 98.6 Pulse 45 70 62 74 Resp 20 B/P (MAP) 128/58 (81) 124/50 (74) 120/58 (78) 138/56 (83) Pulse Ox 93 90 93 93 O2 Delivery Nasal Cannula Nasal Cannula Nasal Cannula Nasal Cannula O2 Flow Rate 5.0 5.0 5.0 5.0 04/21/20 04/21/20 04/21/20 04/21/20 04:00 05:00 06:00 07:00 Pulse 67 58 69 Resp 22 B/P (MAP) 105/58 (74) 121/56 (77) 118/54 (75) Pulse Ox 94 94 94 O2 Delivery Nasal Cannula Nasal Cannula Nasal Cannula Nasal Cannula O2 Flow Rate 5.0 5.0 5.0 5.0 04/21/20 07:47 Temp 99.5 99.5 Intake and Output 04/20/20 04/20/20 04/21/20 15:00 23:00 07:00 Intake Total 100 ml 2189.68 ml 335 ml Output Total 375 ml 450 ml 475 ml Balance -275 ml 1739.68 ml -140 ml Justicifation of Admission Dx: Justifications for Admission: Justification of Admission Dx: Yes Respiratory Failure: Severe Resp Distress SHIV URIOSTEGUI MD Apr 21, 2020 09:04
--- NOTE | 2020-04-21 09:44 | NUR ---
inadvertently undid charting of nonadmin meds for 04/20/20 for 2100 dose. went back in and recharted the nonadmin. depakote and aspirin
[2020-04-21] MEDS: diphenhydrAMINE 50 MG/ML VIAL IVP SCH ×2 (09:55→21:48)
--- NOTE | 2020-04-21 11:23 | NUR ---
SS following up with discharge planning. SS reviewed pt chart and discussed with pt RN. Pt is LTC resident from [facility], ; fax [phone]. Pt on nasal canula oxygen. Pt on IV Azithromycin and Zosyn. Pt COVID19 positive. PT/OT/ST ordered. SS will continue to follow for discharge planning.
--- NOTE | 2020-04-21 14:17 | PDOC ---
PROGRESS NOTES Chief Complaint Chief Complaint COVID 19 infection acute hypoxic respiratory failure sepsis acute on chronic encephalopathy, cerebral palsy, shelter resident at baseline obese, BMI 33 severe malnutrition, POA History of Present Illness History of Present Illness 04/21. weaning oxygen well, try PO intake today, may transfer out of ICU soon doing better DNR made 2 days ago, no visitor policy in hospital, COVID 19 patient cont current appears stable, hypoxic Vitals Vitals Vital Signs Date Time Temp Pulse Resp B/P (MAP) Pulse Ox O2 Delivery O2 Flow Rate FiO2 04/21/20 12:00 29 128/54 (78) 91 Room Air 04/21/20 11:00 66 04/21/20 10:00 5.0 04/21/20 07:47 99.5 99.5 Physical Exam Lungs: Crackles Assessment and Plan Assessmemt and Plan Problems Medical Problems: (1) 2019 novel coronavirus disease (COVID-19) Status: Acute (2) Anaphylactic reaction Status: Acute (3) Respiratory failure, acute Status: Acute Comment Review of Relevant I have reviewed the following items nara (where applicable) has been applied. Labs Laboratory Tests Test 04/20/20 09:10 O2 Saturation 95 % (92-99) Arterial Blood pH 7.38 (7.35-7.45) Arterial Blood pCO2 at Patient Temp 42 mmHg (35-46) Arterial Blood pO2 at Patient Temp 84 mmHg (65-108) Arterial Blood HCO3 25 mmol/L (21-28) Arterial Blood Base Excess -1 mmol/L (-3-3) FiO2 100 Microbiology 04/18/20 Urine Culture - Final, Complete 04/18/20 Blood Culture - Preliminary, Resulted NO GROWTH AFTER 3 DAYS Medications Current Medications Dexamethasone Sodium Phosphate (Decadron) 10 mg 1X ONCE IVP Last administered on 04/18/20at 13:56; Start 04/18/20 at 14:00; Stop 04/18/20 at 14:01; Status DC Diphenhydramine HCl (Benadryl) 25 mg 1X ONCE IVP Last administered on 04/18/20at 13:55; Start 04/18/20 at 14:00; Stop 04/18/20 at 14:01; Status DC Epinephrine HCl (Adrenalin) 0.3 mg 1X ONCE SQ Last administered on 04/18/20at 13:56; Start 04/18/20 at 14:00; Stop 04/18/20 at 14:01; Status DC Albuterol Sulfate (Ventolin Neb Soln) 2.5 mg 1X ONCE NEB Last administered on 04/18/20at 14:01; Start 04/18/20 at 14:00; Stop 04/18/20 at 14:01; Status DC Famotidine (Pepcid Vial) 20 mg 1X ONCE IVP Last administered on 04/18/20at 13:55; Start 04/18/20 at 14:00; Stop 04/18/20 at 14:01; Status DC Ceftriaxone Sodium (Rocephin) 1 gm 1X ONCE IVP Last administered on 04/18/20at 13:56; Start 04/18/20 at 14:00; Stop 04/18/20 at 14:01; Status DC Methylprednisolone Sodium Succinate (SOLU-Medrol 40MG VIAL) 30 mg DAILY IV Last administered on 04/19/20at 11:22; Start 04/19/20 at 09:00; Stop 04/19/20 at 12:15; Status DC Famotidine (Pepcid) 20 mg BID PO ; Start 04/18/20 at 21:00; Stop 04/19/20 at 07:58; Status DC Diphenhydramine HCl (Benadryl) 25 mg BID IVP Last administered on 04/21/20at 09:55; Start 04/18/20 at 21:00 Piperacillin Sod/ Tazobactam Sod (Zosyn Per Pharmacy) 1 each PRN DAILY PRN MC SEE COMMENTS; Start 04/18/20 at 17:45 Azithromycin 250 ml @ 250 mls/hr DAILY IV ; Start 04/19/20 at 09:00; Stop 04/18/20 at 17:55; Status DC Azithromycin 500 mg/Sodium Chloride 250 ml @ 250 mls/hr Q24H IV Last admin istered on 04/20/20at 18:14; Start 04/18/20 at 19:00 Piperacillin Sod/ Tazobactam Sod 4.5 gm/Sodium Chloride 100 ml @ 200 mls/hr Q 6HRS IV Last administered on 04/21/20at 11:44; Start 04/18/20 at 18:00 Nystatin (Nystop) 1 kimmy PRN BID PRN TP RASH; Start 04/18/20 at 19:45 Vitamin A/Vitamin D (Vitamin A & D Ointment) 1 kimmy PRN Q1HR PRN TP SKIN PROTECTION Last administered on 04/21/20at 09:56; Start 04/18/20 at 19:45 Sodium Chloride 1,000 ml @ 75 mls/hr [id number] IV Last administered on 04/21/20at 01:45; Start 04/18/20 at 22:00 Enoxaparin Sodium (Lovenox 40mg Syringe) 40 mg Q24H SQ Last administered on 04/18/20at 22:13; Start 04/18/20 at 23:00; Stop 04/19/20 at 12:00; Status DC Acetaminophen (Tylenol) 325 mg PRN Q6HRS PRN PO PAIN; Start 04/19/20 at 08:30 Aspirin (Ecotrin) 81 mg HS PO ; Start 04/19/20 at 21:00 Calcium/Vitamin D (Oscal D 500mg/ 200uts) 1 tab DAILY PO ; Start 04/19/20 at 09:00 Divalproex Sodium (Depakote) 750 mg DAILY PO ; Start 04/19/20 at 09:00 Divalproex Sodium (Depakote) 1,000 mg HS PO ; Start 04/19/20 at 21:00 Donepezil HCl (Aricept) 10 mg DAILY PO ; Start 04/19/20 at 09:00 Gabapentin (Neurontin) 100 mg BID@0800,1600 PO ; Start 04/19/20 at 09:00 Gabapentin (Neurontin) 100 mg DAILY16 PO ; Start 04/19/20 at 16:00; Status UNV Gabapentin (Neurontin) 300 mg HS PO ; Start 04/19/20 at 21:00 Oxybutynin Chloride (Ditropan) 5 mg BID PO ; Start 04/19/20 at 09:00 Senna/Docusate Sodium (Senna Plus) 1 tab BID PO ; Start 04/19/20 at 09:00 Fluoxetine HCl (PROzac) 40 mg QHS PO ; Start 04/19/20 at 21:00 Enoxaparin Sodium (Lovenox Per Pharmacy Treatment Dosing) 1 each PRN DAILY PRN MC SEE COMMENTS; Start 04/19/20 at 12:00 Enoxaparin Sodium (Lovenox 100mg Syringe) 100 mg Q12HR SQ Last administered on 04/21/20at 09:53; Start 04/19/20 at 12:30 Methylprednisolone Sodium Succinate (SOLU-Medrol 40MG VIAL) 60 mg Q8HRS IV Last administered on 04/21/20at 05:45; Start 04/19/20 at 14:00 Zinc Sulfate (Orazinc) 220 mg DAILY PO ; Start 04/19/20 at 17:00 Vitamin D (Vitamin D3) 5,000 unit DAILY PO ; Start 04/19/20 at 17:00 Sterile Water (WATER for RESP) 1,000 ml CONT PRN INH VIA VAPOTHERM DEVICE Last administered on 04/20/20at 01:54; Start 04/19/20 at 17:15 Lactobacillus Rhamnosus (Culturelle) 1 cap BID PO ; Start 04/21/20 at 21:00 Active Scripts Active Doxycycline Hyclate 100 Mg Tablet 100 Mg PO BID 10 Days [Ceftriaxone Sodium] 2 GM Vial 2 Gm IVP Q24H 10 Days Reported Risperdal (Risperidone) 0.5 Mg Tablet 3.5 Mg PO QHS Risperdal (Risperidone) 2 Mg Tablet 2 Mg PO DAILY Divalproex Sodium 250 Mg Tablet.dr 750 Mg PO DAILY Fluoxetine Hcl 40 Mg Capsule 1 Cap PO HS Divalproex Sodium 500 Mg Tablet.dr 1,000 Mg PO HS Ventolin Hfa Inhaler (Albuterol Sulfate) 18 Gm Hfa.aer.ad 2 Puff INH PRN Q4HRS Oxybutynin Chloride 5 Mg Tablet 1 Tab PO BID Senokot-S Tablet (Sennosides/Docusate Sodium) 1 Each Tablet 1 Tab PO BID 30 Days Gabapentin (Gabapentin) 100 Mg Capsule 100 Mg PO DAILY08 Gabapentin (Gabapentin) 300 Mg Capsule 300 Mg PO HS Donepezil Hcl 10 Mg Tablet 1 Tab PO DAILY Modafinil 100 Mg Tablet 100 Mg PO DAILY Multi Vitamin Daily (Multivitamin) 1 Each Tablet 1 Tab PO DAILY 30 Days Oyster Shell Calcium + D Tab (Calcium Carbonate/Vitamin D3) 1 Each Tablet 1 Tab PO DAILY 30 Days Gabapentin (Gabapentin) 100 Mg Capsule 100 Mg PO DAILY16 Acetaminophen 325 Mg Tablet 1 Tab PO PRN Q6HRS PRN 30 Days Potassium Chloride (Potassium Chloride) 20 Meq Tablet.er 20 Meq PO BID Vitamin E Ointment (Vit E Acetate/Wheat Germ/Aloe) 60 Gm Oint...g. 60 Gm TP HS Niaspan (Niacin) 1,000 Mg Tab.er.24h 1,000 Mg PO HS Vitamin D (Cholecalciferol (Vitamin D3)) 2,000 Unit Capsule 2,000 Unit PO HS Aspir 81 (Aspirin) 81 Mg Tablet.dr 81 Mg PO HS Vitals/I & O Vital Sign - Last 24 Hours 04/20/20 04/20/20 04/20/20 04/20/20 15:00 16:05 16:13 16:16 Temp 97.9 97.9 Pulse 90 92 Resp 20 B/P (MAP) 131/59 (83) 144/88 (106) Pulse Ox 98 94 94 O2 Delivery NonRebreather Mask Non-Rebreather Nasal Cannula Nasal Cannula O2 Flow Rate 15.0 15.0 5.0 5.0 04/20/20 04/20/20 04/20/20 04/20/20 17:05 18:00 19:00 20:00 Temp 98.1 98.1 Pulse 65 60 69 63 Resp 20 B/P (MAP) 118/61 (80) 123/70 (87) 110/71 (84) 120/78 (92) Pulse Ox 96 94 97 96 O2 Delivery Nasal Cannula Nasal Cannula Nasal Cannula Nasal Cannula O2 Flow Rate 5.0 5.0 5.0 5.0 04/20/20 04/20/20 04/20/20 04/20/20 20:00 21:00 22:00 23:00 Temp 98.3 98.3 Pulse 63 48 62 Resp 20 B/P (MAP) 120/78 (92) 113/60 (77) 125/59 (81) Pulse Ox 96 96 93 O2 Delivery Nasal Cannula Nasal Cannula Nasal Cannula Nasal Cannula O2 Flow Rate 5.0 5.0 5.0 5.0 04/21/20 04/21/20 04/21/20 04/21/20 00:00 00:00 01:00 02:00 Pulse 71 45 70 B/P (MAP) 130/60 (83) 128/58 (81) 124/50 (74) Pulse Ox 93 93 90 O2 Delivery Nasal Cannula Nasal Cannula Nasal Cannula Nasal Cannula O2 Flow Rate 5.0 5.0 5.0 5.0 04/21/20 04/21/20 04/21/20 04/21/20 03:00 04:00 04:00 05:00 Temp 98.6 98.6 Pulse 62 74 67 Resp 20 B/P (MAP) 120/58 (78) 138/56 (83) 105/58 (74) Pulse Ox 93 93 94 O2 Delivery Nasal Cannula Nasal Cannula Nasal Cannula Nasal Cannula O2 Flow Rate 5.0 5.0 5.0 5.0 04/21/20 04/21/20 04/21/20 04/21/20 06:00 07:00 07:47 08:00 Temp 99.5 99.5 Pulse 58 69 Resp 22 B/P (MAP) 121/56 (77) 118/54 (75) Pulse Ox 94 94 O2 Delivery Nasal Cannula Nasal Cannula Nasal Cannula O2 Flow Rate 5.0 5.0 5.0 04/21/20 04/21/20 04/21/20 04/21/20 09:00 10:00 11:00 12:00 Pulse 63 75 66 Resp 25 25 35 29 B/P (MAP) 117/59 (78) 127/68 (87) 116/62 (80) 128/54 (78) Pulse Ox 91 91 91 91 O2 Delivery Nasal Cannula Room Air Room Air Room Air O2 Flow Rate 5.0 5.0 Intake and Output0 04/20/20 04/20/20 04/21/20 14:59 22:59 06:59 Intake Total 100 ml 2189.68 ml 260 ml Output Total 375 ml 425 ml 500 ml Balance -275 ml 1764.68 ml -240 ml Justicifation of Admission Dx: Justifications for Admission: Justification of Admission Dx: Yes Respiratory Failure: Severe Resp Distress SHIV URIOSTEGUI MD Apr 21, 2020 14:17
--- NOTE | 2020-04-21 14:18 | EKG ---
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
--- NOTE | 2020-04-21 14:41 | NUR ---
pg to Dr. Almodovar RE pt having a 3 second pause, followed by 2 second pauses, then back to SA.
--- NOTE | 2020-04-21 17:12 | PDOC2 ---
CARDIAC CONSULT DATE OF CONSULT Date of Consult DATE: 04/21/20 TIME: 16:57 REASON FOR CONSULT Reason for Consult: LOng pauses, irregular HR REFERRING PHYSICIAN Referring Physician: Scooby SOURCE Source: Chart review, Patient HISTORY OF PRESENT ILLNESS HISTORY OF PRESENT ILLNESS This is a 64 yo male admitted for shortness of breath. He is + for covid 19 and has been seen by pulmonary and noted with atypical pneumonia and sepsis. Pt does have hx of cerebral palsy hence I would not get significant details. He is also significant for past seizures and RLE cellulitis. He has been coughing with questionable dysphagia hence his PO meds have been on hold. Consult is for pauses and he did have 3 sec and 2 sec pauses but otherwise sinus arrhythmias with no symptoms in relation to the latter, No passing out and hemodynamically stable. His QTc is actually prolonged and he does have medications that would slow down his HR and prolonged his QTc. PAST MEDICAL HISTORY Cardiovascular: Hyperlipidemia Pulmonary: Asthma, Pneumonia, Other (DRE) CENTRAL NERVOUS SYSTEM: Dementia, Seizure GI: Other (chronic pancreatitis) Psych: Anxiety, Other (mood disorder) Musculoskeletal: Osteoarthritis PAST SURGICAL HISTORY Past Surgical History: Other (unknown) FAMILY HISTORY Family History: Family History Unknown SOCIAL HISTORY Smoke: No ALCOHOL: none Drugs: None Lives: Jail ALLERGIES ALLERGIES: Coded Allergies: No Known Drug Allergies (Unverified , 06/28/17) ROS Review of System unreliable with dementia and cerebral palsy PHYSICAL EXAM PHYSICAL EXAM discussed with RN General: Alert, Cooperative, No acute distress HEENT: Atraumatic, Mucous membr. moist/pink Lungs: Other (basilar crackles, CXR reviewed) Heart: Regular rate (SR), Rubs Abdomen: Soft Extremities: No cyanosis Skin: No significant lesion Neuro: Sensation intact Psych/Mental Status: Other (flat affect) MUSCULOSKELETAL: Osteoarthritic changes both hands VITALS/I&O VITALS/I&O: Vital Signs Date Time Temp Pulse Resp B/P (MAP) Pulse Ox O2 Delivery O2 Flow Rate FiO2 04/21/20 15:00 77 28 128/65 (86) 93 Room Air 04/21/20 10:00 5.0 04/21/20 07:47 99.5 99.5 I & O 04/20/20 04/20/20 04/21/20 14:59 22:59 06:59 Intake Total 100 ml 2189.68 ml 260 ml Output Total 375 ml 425 ml 500 ml Balance -275 ml 1764.68 ml -240 ml ASSESSMENT/PLAN ASSESSMENT/PLAN 1. Covid-19 Pneumonia 2. Sepsis/UTI 3. Bradyarrhythmia: Sinus arrhythmia with episodes of 2 and 3 sec pauses which is likely med induced 4. Prolonged QTc: notable for high dose aricept, prozac and zithromax 5. Hx of dementia, cerebral palsy and seizures Recommendations 1. DC aricept, consider alternate. Consider alternative to zithromax. EKG in AM 2. No indication for pacemaker. Continue antibiotics per pulmonary 3. Supportive care. PATEL JIMENEZ RECOVERY MANAGER Apr 21, 2020 17:12
--- NOTE | 2020-04-21 17:47 | NUR ---
per request from cardiology, pg to Dr. Almodovar re changing zithromax as it prolongs QT. pg went to Dr. Benites.
[2020-04-21] MEDS: ASPIRIN ENTERIC COATED 81 MG TABLET.DR. PO SCH (21:00)
[2020-04-21] MEDS: LACTOBACILLUS RHAMNOSUS GG 1 CAPSULE. PO SCH (21:00)
[2020-04-21] MEDS: FLUoxetine HCL 20 MG CAPSULE PO SCH (21:00)
[2020-04-21] MEDS: DIVALPROEX DELAYED RELEASE 500 MG TABLET.DR. PO SCH (21:00)
[2020-04-21] MEDS: GABAPENTIN 300 MG CAPSULE. PO SCH (21:00)
[2020-04-21] MEDS: DOXYCYCLINE HYCLATE 100 MG in IV DEXTROSE 5% 100ML 100 ML IV SCH (21:55)
--- NOTE | 2020-04-21 22:16 | RAD ---
Right lower extremity venous doppler ultrasound History: Right leg cellulitis, positive COVID Comparison: None Findings: Multiple grayscale, color, and duplex spectral analysis sonographic images were acquired of the right lower extremity veins to evaluate for the presence of DVT. There is normal phasicity. No thrombus is demonstrated of the interrogated right lower extremity veins, right peroneal vein not able to be visualized on this exam. There is some edema of the soft tissues. Impression: 1. No thrombus is demonstrated of the visualized of the right lower extremity veins, right peroneal vein not seen. Electronically signed by: Gigi Santamaria MD (04/21/2020 10:13 PM) [facility]
[2020-04-22 03:50] VITALS: BP 107/66
[2020-04-22] MEDS: PIPERACILLIN/TAZOBACTAM 4.5 GM in IV NORMAL SALINE 100ML 100 ML IV SCH ×3 (05:40→16:58)
[2020-04-22] MEDS: methylPREDNISolone SOD SUCC PF 40 MG/ML VIAL. IV SCH ×3 (05:40→22:31)
[2020-04-22 07:00] VITALS: BP 116/69
[2020-04-22] MEDS: GABAPENTIN 100 MG CAPSULE. PO SCH ×2 (08:00→16:00)
[2020-04-22] MEDS: OXYBUTYNIN CHLORIDE 5 MG TABLET PO SCH ×2 (08:25→21:00)
[2020-04-22] MEDS: LACTOBACILLUS RHAMNOSUS GG 1 CAPSULE. PO SCH ×2 (08:25→21:00)
[2020-04-22] MEDS: DIVALPROEX DELAYED RELEASE 250 MG TABLET.DR. PO SCH (08:25)
[2020-04-22] MEDS: CHOLECALCIFEROL (VITAMIN D3) 5,000 UNIT CAPSULE PO SCH (08:26)
[2020-04-22] MEDS: ZINC SULFATE 220 MG CAPSULE. PO SCH (08:26)
[2020-04-22] MEDS: SENNOSIDES/DOCUSATE 8.6/50MG TABLET. PO SCH ×2 (08:26→21:00)
[2020-04-22] MEDS: CALCIUM CARB/VIT D3 500/200 TABLET. PO SCH (08:26)
--- NOTE | 2020-04-22 08:41 | PDOC ---
PULMONARY PROGRESS NOTES Subjective Patient not more short of air no chest pain pressure no nausea vomiting Vitals Vital Signs Date Time Temp Pulse Resp B/P (MAP) Pulse Ox O2 Delivery O2 Flow Rate FiO2 04/22/20 07:00 98.6 60 17 116/69 (85) 96 Nasal Cannula 5.0 98.6 General: Alert Lungs: Crackles Cardiovascular: S1, S2 Abdomen: Soft Neuro Exam: Alert Extremities: Other (Mild edema) Skin: Warm Labs Laboratory Tests Test 04/20/20 09:10 O2 Saturation 95 % (92-99) Arterial Blood pH 7.38 (7.35-7.45) Arterial Blood pCO2 at Patient Temp 42 mmHg (35-46) Arterial Blood pO2 at Patient Temp 84 mmHg (65-108) Arterial Blood HCO3 25 mmol/L (21-28) Arterial Blood Base Excess -1 mmol/L (-3-3) FiO2 100 Medications Active Scripts Medications Dose Route/Sig Max Daily Dose Days Date Category Doxycycline Hyclate 100 Mg Tablet 100 Mg PO BID 10 03/06/20 Rx [Ceftriaxone Sodium] 2 GM Vial 2 Gm IVP Q24H 10 03/06/20 Rx Risperdal (Risperidone) 0.5 Mg Tablet 3.5 Mg PO QHS 02/29/20 Reported Risperdal (Risperidone) 2 Mg Tablet 2 Mg PO DAILY 02/29/20 Reported Divalproex Sodium 250 Mg Tablet.dr 750 Mg PO DAILY 02/29/20 Reported Fluoxetine Hcl 40 Mg Capsule 1 Cap PO HS 02/29/20 Reported Divalproex Sodium 500 Mg Tablet.dr 1,000 Mg PO HS 02/29/20 Reported Ventolin Hfa Inhaler (Albuterol Sulfate) 18 Gm Hfa.aer.ad 2 Puff INH PRN Q4HRS 02/29/20 Reported Oxybutynin Chloride 5 Mg Tablet 1 Tab PO BID 02/29/20 Reported Senokot-S Tablet (Sennosides/Docusate Sodium) 1 Each Tablet 1 Tab PO BID 30 02/29/20 Reported Gabapentin (Gabapentin) 100 Mg Capsule 100 Mg PO DAILY08 02/29/20 Reported Gabapentin (Gabapentin) 300 Mg Capsule 300 Mg PO HS 02/29/20 Reported Donepezil Hcl 10 Mg Tablet 1 Tab PO DAILY 02/29/20 Reported Modafinil 100 Mg Tablet 100 Mg PO DAILY 02/29/20 Reported Multi Vitamin Daily (Multivitamin) 1 Each Tablet 1 Tab PO DAILY 30 02/29/20 Reported Oyster Shell Calcium + D Tab (Calcium Carbonate/Vitamin D3) 1 Each Tablet 1 Tab PO DAILY 30 02/29/20 Reported Gabapentin (Gabapentin) 100 Mg Capsule 100 Mg PO DAILY16 02/29/20 Reported Acetaminophen 325 Mg Tablet 1 Tab PO PRN Q6HRS PRN 30 02/29/20 Reported Potassium Chloride (Potassium Chloride) 20 Meq Tablet.er 20 Meq PO BID 02/29/20 Reported Vitamin E Ointment (Vit E Acetate/Wheat Germ/Aloe) 60 Gm Oint...g. 60 Gm TP HS 06/20/17 Reported Niaspan (Niacin) 1,000 Mg Tab.er.24h 1,000 Mg PO HS 06/20/17 Reported Vitamin D (Cholecalciferol (Vitamin D3)) 2,000 Unit Capsule 2,000 Unit PO HS 06/20/17 Reported Aspir 81 (Aspirin) 81 Mg Tablet.dr 81 Mg PO HS 06/20/17 Reported Comments Impression: Bilateral infiltrates likely atypical pneumonia. Impression . Acute hypoxic respiratory failure likely secondary to atypical pneumonia COVID-19 infection/pneumonia Hypotension Elevated d-dimer Anaphylactic reaction Thrombocytopenia Severe sepsis Right lower extremity cellulitis Cerebral palsy Obstructive sleep apnea Dysphasia Seizure disorder Bilateral venous Doppler 1. No thrombus is demonstrated of the visualized of the right lower extremity veins, right peroneal vein not seen. Plan . Possible transfer 04/23 okay by me Decreased anticoagulation to DVT prophylax Continue support with oxygen supplementation is Case discussed with RT. try nasal cannula Patient was treated for his allergic reaction/anaphylaxis with steroids epinephrine and breathing treatments and Pepcid. Continue empiric antibiotics Change steroids to prednisone Continue home regiment for seizure disorder and mood disorder DVT and GI prophylaxis Discussed with RN and RT GISELA MONTANEZ MD Apr 22, 2020 08:41
[2020-04-22 08:52] LABS: BASO % 0 % (0-3); EOS % 0 % (0-3); HEMATOCRIT 31.1 % (39.0-53.0); HEMOGLOBIN 10.9 g/dL (13.0-17.5); LYMPH # 0.5 x10^3/uL (1.0-4.8); LYMPH % 12 % (24-48); MEAN CORPUSCULAR HEMOGLOBIN 34 pg (25-35); MEAN CORPUSCULAR HGB CONC 35 g/dL (31-37); MEAN CORPUSCULAR VOLUME 97 fL (79-100); MONO # 0.3 x10^3/uL (0.0-1.1); MONO % 7 % (0-9); NEUT # 3.2 x10^3/uL (1.8-7.7); NEUT % 81 % (31-73); PLATELET COUNT 110 x10^3/uL (140-400); RED BLOOD COUNT 3.21 x10^6/uL (4.30-5.70)
[2020-04-22] MEDS: DOXYCYCLINE HYCLATE 100 MG in IV DEXTROSE 5% 100ML 100 ML IV SCH ×2 (09:02→22:26)
[2020-04-22] MEDS: diphenhydrAMINE 50 MG/ML VIAL IVP SCH ×2 (09:02→22:31)
[2020-04-22 09:03] LABS: CALCIUM 7.8 mg/dL (8.5-10.1); CREATININE 0.7 mg/dL (0.7-1.3); GFR 114.3
--- NOTE | 2020-04-22 09:16 | PDOC ---
CARDIO Progress Notes Date and Time Date of Service 04/22/2020 Time of Evaluation 1200 Subjective Subjective: Other (no discomfort, intermittent confusion) Vitals Vitals Vital Signs Date Time Temp Pulse Resp B/P (MAP) Pulse Ox O2 Delivery O2 Flow Rate FiO2 04/22/20 07:00 98.6 60 17 116/69 (85) 96 Nasal Cannula 5.0 98.6 Weight Weight [ ] Input and Output Intake and Output Intake and Output 04/22/20 07:00 Intake Total 375 ml Output Total 525 ml Balance -150 ml Intake Oral 0 ml Other 375 ml Output Urine Total 525 ml # Bowel Movements 3 Laboratory Labs Laboratory Tests Test 04/22/20 08:25 White Blood Count 4.0 x10^3/uL (4.0-11.0) Red Blood Count 3.21 x10^6/uL (4.30-5.70) Hemoglobin 10.9 g/dL (13.0-17.5) Hematocrit 31.1 % (39.0-53.0) Mean Corpuscular Volume 97 fL (79-100) Mean Corpuscular Hemoglobin 34 pg (25-35) Mean Corpuscular Hemoglobin Concent 35 g/dL (31-37) Red Cell Distribution Width 14.0 % (11.5-14.5) Platelet Count 110 x10^3/uL (140-400) Neutrophils (%) (Auto) 81 % (31-73) Lymphocytes (%) (Auto) 12 % (24-48) Monocytes (%) (Auto) 7 % (0-9) Eosinophils (%) (Auto) 0 % (0-3) Basophils (%) (Auto) 0 % (0-3) Neutrophils # (Auto) 3.2 x10^3/uL (1.8-7.7) Lymphocytes # (Auto) 0.5 x10^3/uL (1.0-4.8) Monocytes # (Auto) 0.3 x10^3/uL (0.0-1.1) Eosinophils # (Auto) 0.0 x10^3/uL (0.0-0.7) Basophils # (Auto) 0.0 x10^3/uL (0.0-0.2) Microbiology Micro Microbiology 04/18/20 Urine Culture - Final, Complete 04/18/20 Blood Culture - Preliminary, Resulted NO GROWTH AFTER 3 DAYS Physical Exam Chest: Symmetric LUNGS: Other (diminished bases) Heart: RRR (SB with junctional episodes) Abdomen: Soft N/T Extremities: No Calf Tenderness Neurology: alert, follow commands Other Exams Discussed with artificial flowers supervisor Assessment 1. Covid-19 Pneumonia 2. Sepsis/UTI 3. Bradyarrhythmia: Sinus arrhythmia with episodes of 2 and 3 sec pauses with junctional episodes as well which is likely med induced. lowest in the 40s. Asymptomatic 4. Prolonged QTc: notable for high dose aricept, prozac and zithromax 5. Hx of dementia, cerebral palsy and seizures Recommendations 1. DC aricept, consider alternate. Zithromax has been changed to doxycycline. BMP and Mg today. EKG today and note QTc level 2. No indication for pacemaker. Allow washout period with aricept half life is 3 days. Continue antibiotics per pulmonary 3. Supportive care. Justicifation of Admission Dx: Justifications for Admission: Justification of Admission Dx: Yes Respiratory Failure: Severe Resp Distress PATEL JIMENEZ APRN Apr 22, 2020 09:16
[2020-04-22 09:52] LABS: % BANDS 4 % (0-9); % LYMPHS 19 % (24-48); % MONOS 7 % (0-10); % MYELOS 4 % (0-0); % SEGS 66 % (35-66); NUCLEATED RBC 1; PLT ESTIMATE DECREASED (ADEQUATE)
[2020-04-22 11:00] VITALS: BP 126/65
--- NOTE | 2020-04-22 11:10 | PDOC ---
[facility] [facility] PROGRESS NOTE Chief Complaint Chief Complaint COVID 19 infection acute hypoxic respiratory failure sepsis acute on chronic encephalopathy, cerebral palsy, half-way resident at baseline obese, BMI 33 severe malnutrition, POA History of Present Illness History of Present Illness 04/22/2020 Patient seen and examined He is on 5 L of oxygen He is on the COVID-19 isolation unit Discussed with case management Discussed with RN Chart reviewed 04/21. weaning oxygen well, try PO intake today, may transfer out of ICU soon doing better DNR made 2 days ago, no visitor policy in hospital, COVID 19 patient cont current appears stable, hypoxic Vitals/I&O Vitals/I&O: Vital Signs Date Time Temp Pulse Resp B/P (MAP) Pulse Ox O2 Delivery O2 Flow Rate FiO2 04/22/20 11:00 98.2 64 16 126/65 (85) 98 Nasal Cannula 5.0 98.2 I & O 04/21/20 04/21/20 04/22/20 15:00 23:00 07:00 Intake Total 300 ml 75 ml 0 ml Output Total 525 ml Balance 300 ml 75 ml -525 ml Physical Exam General: Alert, Cooperative, No acute distress Heart: Regular rate (SR), Rubs Lungs: Crackles Abdomen: Soft Extremities: No cyanosis Skin: No significant lesion Labs Labs: Laboratory Tests Test 04/22/20 08:25 White Blood Count 4.0 x10^3/uL (4.0-11.0) Red Blood Count 3.21 x10^6/uL (4.30-5.70) Hemoglobin 10.9 g/dL (13.0-17.5) Hematocrit 31.1 % (39.0-53.0) Mean Corpuscular Volume 97 fL (79-100) Mean Corpuscular Hemoglobin 34 pg (25-35) Mean Corpuscular Hemoglobin Concent 35 g/dL (31-37) Red Cell Distribution Width 14.0 % (11.5-14.5) Platelet Count 110 x10^3/uL (140-400) Neutrophils (%) (Auto) 81 % (31-73) Lymphocytes (%) (Auto) 12 % (24-48) Monocytes (%) (Auto) 7 % (0-9) Eosinophils (%) (Auto) 0 % (0-3) Basophils (%) (Auto) 0 % (0-3) Neutrophils # (Auto) 3.2 x10^3/uL (1.8-7.7) Lymphocytes # (Auto) 0.5 x10^3/uL (1.0-4.8) Monocytes # (Auto) 0.3 x10^3/uL (0.0-1.1) Eosinophils # (Auto) 0.0 x10^3/uL (0.0-0.7) Basophils # (Auto) 0.0 x10^3/uL (0.0-0.2) Segmented Neutrophils % 66 % (35-66) Band Neutrophils % 4 % (0-9) Lymphocytes % 19 % (24-48) Monocytes % 7 % (0-10) Myelocytes % 4 % (0-0) Nucleated Red Blood Cells 1 Platelet Estimate Decreased (ADEQUATE) Sodium Level 148 mmol/L (136-145) Potassium Level 3.0 mmol/L (3.5-5.1) Chloride Level 114 mmol/L (98-107) Carbon Dioxide Level 23 mmol/L (21-32) Anion Gap 11 (6-14) Blood Urea Nitrogen 41 mg/dL (8-26) Creatinine 0.7 mg/dL (0.7-1.3) Estimated GFR (Cockcroft-Gault) 114.3 Glucose Level 276 mg/dL (70-99) Calcium Level 7.8 mg/dL (8.5-10.1) Magnesium Level 2.4 mg/dL (1.8-2.4) Assessment and Plan Assessmemt and Plan Problems Medical Problems: (1) 2019 novel coronavirus disease (COVID-19) Status: Acute (2) Anaphylactic reaction Status: Acute (3) Respiratory failure, acute Status: Acute COVID 19 infection acute hypoxic respiratory failure sepsis acute on chronic encephalopathy, cerebral palsy, half-way resident at baseline obese, BMI 33 severe malnutrition, POA Plan COVID protocol IV antibiotics Duo nebs Oxygen Home meds DVT prophylaxis Full code Prognosis guarded Comment Review of Relevant I have reviewed the following items nara (where applicable) has been applied. Medications: Current Medications Medications (Trade) Dose Ordered Sig/Wendy Route PRN Reason Start Time Stop Time Status Last Admin Dose Admin Doxycycline Hyclate 100 mg/ Dextrose 100 ml @ 50 mls/hr Q12HR IV 04/21/20 21:00 04/22/20 09:02 Justicifation of Admission Dx: Justifications for Admission: Justification of Admission Dx: Yes Respiratory Failure: Severe Resp Distress KAYLEY ROMAN III DO Apr 22, 2020 11:09
[2020-04-22] MEDS: IV NORMAL SALINE 1000ML BAG 1,000 ML IV SCH ×2 (12:36→19:48)
[2020-04-22] MEDS ORDERED: POTASSIUM CHLORIDE 20MEQ 100 ML IV ONE (12:45)
[2020-04-22 15:19] VITALS: BP 160/87
--- NOTE | 2020-04-22 16:30 | EKG ---
[facility] [address] [place] [address] Test Date: 2020-04-22 Test Time: 15:33:55 Pat Name: SEGUN WOODSON Department: Room: 3 Gender: M Finisher Plate: MRACELINO : 1955 Requested By: PATEL JIMENEZ Order Number: [id number] Reading MD: Measurements Intervals [place] Rate: 67 P: 56 AK: 140 QRS: -18 QRSD: 82 T: 43 QT: 510 QTc: 543 Interpretive Statements SINUS RHYTHM LEFTWARD AXIS QRS(T) CONTOUR ABNORMALITY CONSISTENT WITH SEPTAL INFARCT AGE UNDETERMINED ABNORMAL ECG RI6.02 Compared to ECG 04/18/2020 13:22:19 Myocardial infarct finding now present Prolonged QT interval no longer present
--- NOTE | 2020-04-22 16:48 | NUR ---
SW following. Reviewed chart and spoke with RN. Pt resides at [facility], , (fax). Pt on 5l 02 and IV abx. Pt is being followed by cardiology and is not ready for discharge per Dr. Benites. TOÑO to continue following.
[2020-04-22 19:00] VITALS: BP 142/67
[2020-04-22] MEDS: DIVALPROEX DELAYED RELEASE 500 MG TABLET.DR. PO SCH (21:00)
[2020-04-22] MEDS: GABAPENTIN 300 MG CAPSULE. PO SCH (21:00)
[2020-04-22] MEDS: FLUoxetine HCL 20 MG CAPSULE PO SCH (21:00)
[2020-04-22] MEDS: ASPIRIN ENTERIC COATED 81 MG TABLET.DR. PO SCH (21:00)
[2020-04-22 23:00] VITALS: BP 135/75
[2020-04-23] MEDS: PIPERACILLIN/TAZOBACTAM 4.5 GM in IV NORMAL SALINE 100ML 100 ML IV SCH ×4 (01:36→18:00)
[2020-04-23 03:00] VITALS: BP 151/74
--- NOTE | 2020-04-23 06:14 | EKG ---
[facility] [address] [place] [address] Test Date: 2020-04-23 Test Time: 06:05:25 Pat Name: SEGUN WOODSON Department: Room: 3 Gender: M Psychology Associate: EKRT : 1955 Requested By: PATEL JIMENEZ Order Number: [id number] Reading MD: Measurements Intervals [place] Rate: 70 P: 27 MA: 136 QRS: -18 QRSD: 82 T: 46 QT: 498 QTc: 541 Interpretive Statements SINUS RHYTHM LEFTWARD AXIS PROLONGED QT NO SPECIFIC ECG ABNORMALITIES RI6.02 Compared to ECG 04/22/2020 15:33:55 Prolonged QT interval now present Myocardial infarct finding no longer present
[2020-04-23] MEDS: methylPREDNISolone SOD SUCC PF 40 MG/ML VIAL. IV SCH ×3 (06:22→22:27)
[2020-04-23 07:20] VITALS: BP 145/76
[2020-04-23] MEDS: GABAPENTIN 100 MG CAPSULE. PO SCH ×2 (08:00→16:00)
[2020-04-23] MEDS: IV NORMAL SALINE 1000ML BAG 1,000 ML IV SCH (08:40)
--- NOTE | 2020-04-23 08:44 | PDOC ---
PULMONARY PROGRESS NOTES Subjective Patient more short of air today. Vitals Vital Signs Date Time Temp Pulse Resp B/P (MAP) Pulse Ox O2 Delivery O2 Flow Rate FiO2 04/23/20 07:20 98.1 50 18 145/76 (99) 96 Nasal Cannula 5.0 98.1 General: Alert Lungs: Crackles Cardiovascular: S1, S2 Abdomen: Soft Neuro Exam: Alert Extremities: Other (Mild edema) Skin: Warm Labs Laboratory Tests Test 04/22/20 08:25 White Blood Count 4.0 x10^3/uL (4.0-11.0) Red Blood Count 3.21 x10^6/uL (4.30-5.70) Hemoglobin 10.9 g/dL (13.0-17.5) Hematocrit 31.1 % (39.0-53.0) Mean Corpuscular Volume 97 fL (79-100) Mean Corpuscular Hemoglobin 34 pg (25-35) Mean Corpuscular Hemoglobin Concent 35 g/dL (31-37) Red Cell Distribution Width 14.0 % (11.5-14.5) Platelet Count 110 x10^3/uL (140-400) Neutrophils (%) (Auto) 81 % (31-73) Lymphocytes (%) (Auto) 12 % (24-48) Monocytes (%) (Auto) 7 % (0-9) Eosinophils (%) (Auto) 0 % (0-3) Basophils (%) (Auto) 0 % (0-3) Neutrophils # (Auto) 3.2 x10^3/uL (1.8-7.7) Lymphocytes # (Auto) 0.5 x10^3/uL (1.0-4.8) Monocytes # (Auto) 0.3 x10^3/uL (0.0-1.1) Eosinophils # (Auto) 0.0 x10^3/uL (0.0-0.7) Basophils # (Auto) 0.0 x10^3/uL (0.0-0.2) Segmented Neutrophils % 66 % (35-66) Band Neutrophils % 4 % (0-9) Lymphocytes % 19 % (24-48) Monocytes % 7 % (0-10) Myelocytes % 4 % (0-0) Nucleated Red Blood Cells 1 Platelet Estimate Decreased (ADEQUATE) Sodium Level 148 mmol/L (136-145) Potassium Level 3.0 mmol/L (3.5-5.1) Chloride Level 114 mmol/L (98-107) Carbon Dioxide Level 23 mmol/L (21-32) Anion Gap 11 (6-14) Blood Urea Nitrogen 41 mg/dL (8-26) Creatinine 0.7 mg/dL (0.7-1.3) Estimated GFR (Cockcroft-Gault) 114.3 Glucose Level 276 mg/dL (70-99) Calcium Level 7.8 mg/dL (8.5-10.1) Magnesium Level 2.4 mg/dL (1.8-2.4) Thyroid Stimulating Hormone (TSH) 1.936 uIU/mL (0.358-3.74) Medications Active Scripts Medications Dose Route/Sig Max Daily Dose Days Date Category Doxycycline Hyclate 100 Mg Tablet 100 Mg PO BID 10 03/06/20 Rx [Ceftriaxone Sodium] 2 GM Vial 2 Gm IVP Q24H 10 03/06/20 Rx Risperdal (Risperidone) 0.5 Mg Tablet 3.5 Mg PO QHS 02/29/20 Reported Risperdal (Risperidone) 2 Mg Tablet 2 Mg PO DAILY 02/29/20 Reported Divalproex Sodium 250 Mg Tablet.dr 750 Mg PO DAILY 02/29/20 Reported Fluoxetine Hcl 40 Mg Capsule 1 Cap PO HS 02/29/20 Reported Divalproex Sodium 500 Mg Tablet.dr 1,000 Mg PO HS 02/29/20 Reported Ventolin Hfa Inhaler (Albuterol Sulfate) 18 Gm Hfa.aer.ad 2 Puff INH PRN Q4HRS 02/29/20 Reported Oxybutynin Chloride 5 Mg Tablet 1 Tab PO BID 02/29/20 Reported Senokot-S Tablet (Sennosides/Docusate Sodium) 1 Each Tablet 1 Tab PO BID 30 02/29/20 Reported Gabapentin (Gabapentin) 100 Mg Capsule 100 Mg PO DAILY08 02/29/20 Reported Gabapentin (Gabapentin) 300 Mg Capsule 300 Mg PO HS 02/29/20 Reported Donepezil Hcl 10 Mg Tablet 1 Tab PO DAILY 02/29/20 Reported Modafinil 100 Mg Tablet 100 Mg PO DAILY 02/29/20 Reported Multi Vitamin Daily (Multivitamin) 1 Each Tablet 1 Tab PO DAILY 30 02/29/20 Reported Oyster Shell Calcium + D Tab (Calcium Carbonate/Vitamin D3) 1 Each Tablet 1 Tab PO DAILY 30 02/29/20 Reported Gabapentin (Gabapentin) 100 Mg Capsule 100 Mg PO DAILY16 02/29/20 Reported Acetaminophen 325 Mg Tablet 1 Tab PO PRN Q6HRS PRN 30 02/29/20 Reported Potassium Chloride (Potassium Chloride) 20 Meq Tablet.er 20 Meq PO BID 02/29/20 Reported Vitamin E Ointment (Vit E Acetate/Wheat Germ/Aloe) 60 Gm Oint...g. 60 Gm TP HS 06/20/17 Reported Niaspan (Niacin) 1,000 Mg Tab.er.24h 1,000 Mg PO HS 06/20/17 Reported Vitamin D (Cholecalciferol (Vitamin D3)) 2,000 Unit Capsule 2,000 Unit PO HS 06/20/17 Reported Aspir 81 (Aspirin) 81 Mg Tablet.dr 81 Mg PO HS 06/20/17 Reported Comments Impression: Bilateral infiltrates likely atypical pneumonia. Impression . Acute hypoxic respiratory failure likely secondary to atypical pneumonia COVID-19 infection/pneumonia Hypotension Elevated d-dimer Anaphylactic reaction Thrombocytopenia Severe sepsis Right lower extremity cellulitis Cerebral palsy Obstructive sleep apnea Dysphasia Seizure disorder Dysphasia Bilateral venous Doppler 1. No thrombus is demonstrated of the visualized of the right lower extremity veins, right peroneal vein not seen. Plan . Lasix x1 Repeat chest x-ray in the morning Decreased anticoagulation to DVT prophylax Continue support with oxygen supplementation is Case discussed with RT. try nasal cannula Patient was treated for his allergic reaction/anaphylaxis with steroids epinephrine and breathing treatments and Pepcid. Continue empiric antibiotics Change steroids to prednisone Continue home regiment for seizure disorder and mood disorder DVT and GI prophylaxis Discussed with RN and RT GISELA MONTANEZ MD Apr 23, 2020 08:44
[2020-04-23] MEDS: DIVALPROEX DELAYED RELEASE 250 MG TABLET.DR. PO SCH (09:00)
[2020-04-23] MEDS: LACTOBACILLUS RHAMNOSUS GG 1 CAPSULE. PO SCH ×2 (09:00→21:00)
[2020-04-23] MEDS: OXYBUTYNIN CHLORIDE 5 MG TABLET PO SCH ×2 (09:00→21:00)
[2020-04-23] MEDS: SENNOSIDES/DOCUSATE 8.6/50MG TABLET. PO SCH ×2 (09:00→21:00)
[2020-04-23] MEDS: CALCIUM CARB/VIT D3 500/200 TABLET. PO SCH (09:00)
[2020-04-23] MEDS: CHOLECALCIFEROL (VITAMIN D3) 5,000 UNIT CAPSULE PO SCH (09:00)
[2020-04-23] MEDS: ZINC SULFATE 220 MG CAPSULE. PO SCH (09:00)
[2020-04-23] MEDS: diphenhydrAMINE 50 MG/ML VIAL IVP SCH ×2 (09:13→22:26)
[2020-04-23] MEDS: DOXYCYCLINE HYCLATE 100 MG in IV DEXTROSE 5% 100ML 100 ML IV SCH ×2 (09:13→22:24)
--- NOTE | 2020-04-23 10:44 | PDOC ---
[employer] [facility] PROGRESS NOTE Chief Complaint Chief Complaint COVID 19 infection acute hypoxic respiratory failure sepsis acute on chronic encephalopathy, cerebral palsy, fpc resident at baseline obese, BMI 33 severe malnutrition, POA History of Present Illness History of Present Illness 04/23/2020 Patient seen and examined He is resting with no apparent distress Chart reviewed Discussed with case management 04/22/2020 Patient seen and examined He is on 5 L of oxygen He is on the COVID-19 isolation unit Discussed with case management Discussed with RN Chart reviewed 04/21. weaning oxygen well, try PO intake today, may transfer out of ICU soon doing better DNR made 2 days ago, no visitor policy in hospital, COVID 19 patient cont current appears stable, hypoxic Vitals/I&O Vitals/I&O: Vital Signs Date Time Temp Pulse Resp B/P (MAP) Pulse Ox O2 Delivery O2 Flow Rate FiO2 04/23/20 08:00 Nasal Cannula 5.0 04/23/20 07:20 98.1 50 18 145/76 (99) 96 98.1 I & O 04/22/20 04/22/20 04/23/20 15:00 23:00 07:00 Intake Total 0 ml 0 ml Output Total 1500 ml Balance 0 ml -1500 ml Physical Exam General: Alert, Cooperative, No acute distress Heart: Regular rate (SR), Rubs Lungs: Crackles Abdomen: Soft Extremities: No cyanosis Skin: No significant lesion Assessment and Plan Assessmemt and Plan Problems Medical Problems: (1) 2019 novel coronavirus disease (COVID-19) Status: Acute (2) Anaphylactic reaction Status: Acute (3) Respiratory failure, acute Status: Acute COVID 19 infection acute hypoxic respiratory failure sepsis acute on chronic encephalopathy, cerebral palsy, fpc resident at baseline obese, BMI 33 severe malnutrition, POA Plan COVID protocol IV antibiotics Duo nebs Oxygen Home meds DVT prophylaxis Full code Discharge when okay with pulmonary Comment Review of Relevant I have reviewed the following items nara (where applicable) has been applied. Medications: Current Medications Medications (Trade) Dose Ordered Sig/Wendy Route PRN Reason Start Time Stop Time Status Last Admin Dose Admin Potassium Chloride/Water 100 ml @ 50 mls/hr 1X ONCE IV 04/22/20 12:45 04/22/20 14:44 DC 04/22/20 12:45 Justicifation of Admission Dx: Justifications for Admission: Justification of Admission Dx: Yes Respiratory Failure: Severe Resp Distress KAYLEY ROMAN III DO Apr 23, 2020 10:44
--- NOTE | 2020-04-23 10:47 | SNU/HH DC ---
DISCHARGE ORDERS DISCHARGE INFORMATION: FINAL DIAGNOSIS Problems Medical Problems: (1) 2019 novel coronavirus disease (COVID-19) Status: Acute (2) Anaphylactic reaction Status: Acute (3) Respiratory failure, acute Status: Acute CONDITION ON DISCHARGE: Stable CODE STATUS: Code Status: DNR/DNI LONG-TERM: SNF STAY <30 DAYS: No HOSPICE: HOSPICE: No HOSPICE EVAL & TREAT: No LTAC: ADMIT TO LTAC: No POST DISCHARGE ORDERS: DIET AFTER DISCHARGE: Okay to resume previous diet at his facility DISCHARGE MEDICATIONS: Home Meds Active Scripts Doxycycline Hyclate (DOXYCYCLINE HYCLATE) 100 Mg Tablet, 100 MG PO BID for cellulitis for 10 Days, #20 TAB Prov:JANNY CULLEN MD 03/06/20 [cefTRIAXone IV Push] 2 GM VIAL No Conflict Check, 2 GM IVP Q24H for cellulitis for 10 Days, #10 EACH Prov:JANNY CULLEN MD 03/06/20 Reported Medications Risperidone (RISPERDAL) 0.5 Mg Tablet, 3.5 MG PO QHS for MOOD STABILIZER, TAB 02/29/20 Risperidone (RISPERDAL) 2 Mg Tablet, 2 MG PO DAILY for MOOD STABILIZER, TAB 02/29/20 Divalproex Sodium (DIVALPROEX SODIUM) 250 Mg Tablet.dr, 750 MG PO DAILY for mood, TAB 02/29/20 Fluoxetine Hcl (FLUOXETINE HCL) 40 Mg Capsule, 1 CAP PO HS for mood, #30 CAP 2 Refills 02/29/20 Divalproex Sodium (DIVALPROEX SODIUM) 500 Mg Tablet.dr, 1000 MG PO HS for seizure, TAB 02/29/20 Albuterol Sulfate (VENTOLIN HFA INHALER) 18 Gm Hfa.aer.ad, 2 PUFF INH PRN Q4HRS for SOA, INHALER 0 Refills 02/29/20 Oxybutynin Chloride (OXYBUTYNIN CHLORIDE) 5 Mg Tablet, 1 TAB PO BID for OAB, #60 TAB 11 Refills 02/29/20 Sennosides/Docusate Sodium (SENOKOT-S TABLET) 1 Each Tablet, 1 TAB PO BID for constipation for 30 Days, #60 TAB 0 Refills 02/29/20 Gabapentin (GABAPENTIN ) 100 Mg Capsule, 100 MG PO DAILY08 for NEUROGENIC PAIN, CAP 02/29/20 Gabapentin (GABAPENTIN ) 300 Mg Capsule, 300 MG PO HS for NEUROGENIC PAIN, CAP 02/29/20 Donepezil Hcl (DONEPEZIL HCL) 10 Mg Tablet, 1 TAB PO DAILY for dementia, #90 TAB 1 Refill 02/29/20 Modafinil (MODAFINIL) 100 Mg Tablet, 100 MG PO DAILY for sleep apnea, TAB 02/29/20 Multivitamin (MULTI VITAMIN DAILY) 1 Each Tablet, 1 TAB PO DAILY for supp for 30 Days, #30 TAB 0 Refills 02/29/20 Calcium Carbonate/Vitamin D3 (OYSTER SHELL CALCIUM + D TAB) 1 Each Tablet, 1 TAB PO DAILY for supp for 30 Days, #30 TAB 0 Refills 02/29/20 Gabapentin (GABAPENTIN ) 100 Mg Capsule, 100 MG PO DAILY16 for NEUROGENIC PAIN, CAP 02/29/20 Acetaminophen (ACETAMINOPHEN) 325 Mg Tablet, 1 TAB PO PRN Q6HRS PRN for PAIN for 30 Days, #30 TAB 0 Refills 02/29/20 Potassium Chloride (POTASSIUM CHLORIDE ) 20 Meq Tablet.er, 20 MEQ PO BID for SUPPLEMENT, TAB.SR 02/29/20 Vit E Acetate/Wheat Germ/Aloe (VITAMIN E OINTMENT) 60 Gm Oint...g., 60 GM TP HS for bilateral legs for dry skin, MISC 06/20/17 Niacin (NIASPAN) 1,000 Mg Tab.er.24h, 1000 MG PO HS, TAB.SR 06/20/17 Cholecalciferol (Vitamin D3) (VITAMIN D) 2,000 Unit Capsule, 2000 UNIT PO HS, CAP 06/20/17 Aspirin (ASPIR 81) 81 Mg Tablet., 81 MG PO HS, TAB 06/20/17 KAYLEY ROMAN III DO Apr 23, 2020 10:47
[2020-04-23 11:30] VITALS: BP 125/66
--- NOTE | 2020-04-23 12:14 | PDOC ---
PATEL JIMENEZ LACTATION SPECIALIST 04/23/20 1214: CARDIO Progress Notes Date and Time Date of Service 04/23/2020 Time of Evaluation 0900 Subjective Subjective: Other (confused per RN but no discomfort) Vitals Vitals Vital Signs Date Time Temp Pulse Resp B/P (MAP) Pulse Ox O2 Delivery O2 Flow Rate FiO2 04/23/20 08:00 Nasal Cannula 5.0 04/23/20 07:20 98.1 50 18 145/76 (99) 96 98.1 Weight Weight [ ] Input and Output Intake and Output Intake and Output 04/23/20 07:00 Intake Total 0 ml Output Total 1500 ml Balance -1500 ml Intake Oral 0 ml Output Urine Total 1500 ml Microbiology Micro Microbiology 04/18/20 Urine Culture - Final, Complete 04/18/20 Blood Culture - Preliminary, Resulted NO GROWTH AFTER 4 DAYS Physical Exam Chest: Symmetric LUNGS: Other (coarse) Heart: RRR (SR/SB) Abdomen: Soft N/T Extremities: No Calf Tenderness, Other (2+ bilateral LE pitting edema) Neurology: alert, follow commands, confused Other Exams Deferred discussed exam with theatre director Assessment 1. Covid-19 Pneumonia 2. Sepsis/UTI 3. Bradyarrhythmia: Sinus arrhythmia with episodes of 2 and 3 sec pauses with junctional episodes as well which is likely med induced. lowest in the 40s. Asymptomatic, hemodynamically stable 4. Prolonged QTc: notable for high dose aricept, prozac and zithromax. QTc at 534 5. Hx of dementia, cerebral palsy and seizures 6. Dementia 7. Hypokalemia: replaced Recommendations 1. No further aricept, consider alternate. Zithromax has been changed to doxycycline. Avoid QT prolonging agents and no AV diallo blocking agents. Repeat EKG in AM. BMP today 2. No indication for pacemaker. Allow washout period with aricept half life is 3 days. Continue antibiotics per pulmonary 3. Supportive care. Justicifation of Admission Dx: Justifications for Admission: Justification of Admission Dx: Yes Respiratory Failure: Severe Resp Distress JASON DUARTE MD 04/23/20 6105: CARDIO Progress Notes Assessment Assessment Patient seen and evaluated Covid-19 Pneumonia Sepsis/UTI Bradyarrhythmia: Sinus arrhythmia with episodes of 2 and 3 sec pauses with junctional episodes as well which is likely med induced. lowest in the 40s. Asymptomatic, hemodynamically stable. Rhythm improved Prolonged QTc: notable for high dose aricept, prozac and zithromax. QTc at 534 Hx of dementia, cerebral palsy and seizures PATEL JIMENEZ APRN Apr 23, 2020 12:14 JASON DUARTE MD Apr 23, 2020 17:35
[2020-04-23 15:00] VITALS: BP 133/64
[2020-04-23 16:24] LABS: CREATININE 0.7 mg/dL (0.7-1.3); GFR 114.3
[2020-04-23 16:27] LABS: POTASSIUM 2.8 mmol/L (3.5-5.1)
[2020-04-23] MEDS: AMINO AC 3%/ELECTROLYTE/GLYCER 1,000 ML IV SCH (16:52)
[2020-04-23] MEDS: POTASSIUM CHLORIDE 10MEQ 100 ML IV SCH ×4 (16:55→21:02)
--- NOTE | 2020-04-23 17:30 | NUR ---
SW following. Reviewed chart and spoke with RN and CM. Pt from home. Coordinated care with Dr. Benites. Pt from [facility]. Pt not ready for discharge. Pt failed his swallow evaluation and cardiology is still following. Pt remains on IV abx. SW to continue following.
[2020-04-23] MEDS ORDERED: FUROSEMIDE 40 MG/4 ML VIAL. IVP ONE (18:15)
[2020-04-23 19:00] VITALS: BP 145/72
[2020-04-23] MEDS: GABAPENTIN 300 MG CAPSULE. PO SCH (21:00)
[2020-04-23] MEDS: FLUoxetine HCL 20 MG CAPSULE PO SCH (21:00)
[2020-04-23] MEDS: ASPIRIN ENTERIC COATED 81 MG TABLET.DR. PO SCH (21:00)
[2020-04-23] MEDS: DIVALPROEX DELAYED RELEASE 500 MG TABLET.DR. PO SCH (21:00)
[2020-04-23 23:00] VITALS: BP 137/74
[2020-04-24] MEDS: POTASSIUM CHLORIDE 10MEQ 100 ML IV SCH ×8 (00:30→13:21)
[2020-04-24] MEDS: PIPERACILLIN/TAZOBACTAM 4.5 GM in IV NORMAL SALINE 100ML 100 ML IV SCH ×4 (00:35→17:29)
[2020-04-24 03:00] VITALS: BP 147/79
[2020-04-24] MEDS: methylPREDNISolone SOD SUCC PF 40 MG/ML VIAL. IV SCH ×3 (06:03→22:33)
[2020-04-24] MEDS: AMINO AC 3%/ELECTROLYTE/GLYCER 1,000 ML IV SCH (06:05)
[2020-04-24 07:00] VITALS: BP 149/84
[2020-04-24] MEDS: GABAPENTIN 100 MG CAPSULE. PO SCH ×2 (08:00→16:00)
--- NOTE | 2020-04-24 08:44 | PDOC ---
PULMONARY PROGRESS NOTES Subjective Patient less short of air today, received IV Lasix yesterday along with potassium Vitals Vital Signs Date Time Temp Pulse Resp B/P (MAP) Pulse Ox O2 Delivery O2 Flow Rate FiO2 04/24/20 03:00 98.2 78 18 147/79 (101) 94 98.2 04/23/20 20:00 Nasal Cannula 5.0 General: Alert Lungs: Crackles Cardiovascular: S1, S2 Abdomen: Soft Neuro Exam: Alert Extremities: Other (Mild edema) Skin: Warm Labs Laboratory Tests Test 04/23/20 15:35 Sodium Level 153 mmol/L (136-145) Potassium Level 2.8 mmol/L (3.5-5.1) Chloride Level 116 mmol/L (98-107) Carbon Dioxide Level 22 mmol/L (21-32) Anion Gap 15 (6-14) Blood Urea Nitrogen 47 mg/dL (8-26) Creatinine 0.7 mg/dL (0.7-1.3) Estimated GFR (Cockcroft-Gault) 114.3 Glucose Level 274 mg/dL (70-99) Calcium Level 8.0 mg/dL (8.5-10.1) Laboratory Tests Test 04/23/20 15:35 Sodium Level 153 mmol/L (136-145) Potassium Level 2.8 mmol/L (3.5-5.1) Chloride Level 116 mmol/L (98-107) Carbon Dioxide Level 22 mmol/L (21-32) Anion Gap 15 (6-14) Blood Urea Nitrogen 47 mg/dL (8-26) Creatinine 0.7 mg/dL (0.7-1.3) Estimated GFR (Cockcroft-Gault) 114.3 Glucose Level 274 mg/dL (70-99) Calcium Level 8.0 mg/dL (8.5-10.1) Medications Active Scripts Medications Dose Route/Sig Max Daily Dose Days Date Category Doxycycline Hyclate 100 Mg Tablet 100 Mg PO BID 10 03/06/20 Rx [Ceftriaxone Sodium] 2 GM Vial 2 Gm IVP Q24H 10 03/06/20 Rx Risperdal (Risperidone) 0.5 Mg Tablet 3.5 Mg PO QHS 02/29/20 Reported Risperdal (Risperidone) 2 Mg Tablet 2 Mg PO DAILY 02/29/20 Reported Divalproex Sodium 250 Mg Tablet.dr 750 Mg PO DAILY 02/29/20 Reported Fluoxetine Hcl 40 Mg Capsule 1 Cap PO HS 02/29/20 Reported Divalproex Sodium 500 Mg Tablet.dr 1,000 Mg PO HS 02/29/20 Reported Ventolin Hfa Inhaler (Albuterol Sulfate) 18 Gm Hfa.aer.ad 2 Puff INH PRN Q4HRS 02/29/20 Reported Oxybutynin Chloride 5 Mg Tablet 1 Tab PO BID 02/29/20 Reported Senokot-S Tablet (Sennosides/Docusate Sodium) 1 Each Tablet 1 Tab PO BID 30 02/29/20 Reported Gabapentin (Gabapentin) 100 Mg Capsule 100 Mg PO DAILY08 02/29/20 Reported Gabapentin (Gabapentin) 300 Mg Capsule 300 Mg PO HS 02/29/20 Reported Donepezil Hcl 10 Mg Tablet 1 Tab PO DAILY 02/29/20 Reported Modafinil 100 Mg Tablet 100 Mg PO DAILY 02/29/20 Reported Multi Vitamin Daily (Multivitamin) 1 Each Tablet 1 Tab PO DAILY 30 02/29/20 Reported Oyster Shell Calcium + D Tab (Calcium Carbonate/Vitamin D3) 1 Each Tablet 1 Tab PO DAILY 30 02/29/20 Reported Gabapentin (Gabapentin) 100 Mg Capsule 100 Mg PO DAILY16 02/29/20 Reported Acetaminophen 325 Mg Tablet 1 Tab PO PRN Q6HRS PRN 30 02/29/20 Reported Potassium Chloride (Potassium Chloride) 20 Meq Tablet.er 20 Meq PO BID 02/29/20 Reported Vitamin E Ointment (Vit E Acetate/Wheat Germ/Aloe) 60 Gm Oint...g. 60 Gm TP HS 06/20/17 Reported Niaspan (Niacin) 1,000 Mg Tab.er.24h 1,000 Mg PO HS 06/20/17 Reported Vitamin D (Cholecalciferol (Vitamin D3)) 2,000 Unit Capsule 2,000 Unit PO HS 06/20/17 Reported Aspir 81 (Aspirin) 81 Mg Tablet.dr 81 Mg PO HS 06/20/17 Reported Comments Impression: Bilateral infiltrates likely atypical pneumonia. Impression . Acute hypoxic respiratory failure likely secondary to atypical pneumonia COVID-19 infection/pneumonia Hypotension Elevated d-dimer, nonspecific Anaphylactic reaction Thrombocytopenia Severe sepsis Right lower extremity cellulitis Cerebral palsy Obstructive sleep apnea Dysphasia Seizure disorder Dysphasia Possible pulmonary edema Bilateral venous Doppler 1. No thrombus is demonstrated of the visualized of the right lower extremity veins, right peroneal vein not seen. Plan . Better today after Lasix potassium level noted We will repeat chest x-ray Decreased anticoagulation to DVT prophylax Continue support with oxygen supplementation is Case discussed with RT. try nasal cannula Patient was treated for his allergic reaction/anaphylaxis with steroids epinephrine and breathing treatments and Pepcid. Continue empiric antibiotics Change steroids to prednisone Continue home regiment for seizure disorder and mood disorder DVT and GI prophylaxis Discussed with RN and RT GISELA MONTANEZ MD Apr 24, 2020 08:44
[2020-04-24] MEDS: LACTOBACILLUS RHAMNOSUS GG 1 CAPSULE. PO SCH ×2 (09:00→21:00)
[2020-04-24] MEDS: SENNOSIDES/DOCUSATE 8.6/50MG TABLET. PO SCH ×2 (09:00→21:00)
[2020-04-24] MEDS: OXYBUTYNIN CHLORIDE 5 MG TABLET PO SCH ×2 (09:00→21:00)
[2020-04-24] MEDS: CALCIUM CARB/VIT D3 500/200 TABLET. PO SCH (09:00)
[2020-04-24] MEDS: CHOLECALCIFEROL (VITAMIN D3) 5,000 UNIT CAPSULE PO SCH (09:00)
[2020-04-24] MEDS: DIVALPROEX DELAYED RELEASE 250 MG TABLET.DR. PO SCH (09:00)
[2020-04-24] MEDS: ZINC SULFATE 220 MG CAPSULE. PO SCH (09:00)
[2020-04-24 09:24] LABS: CALCIUM 7.9 mg/dL (8.5-10.1); CREATININE 0.7 mg/dL (0.7-1.3); GFR 114.3; MAGNESIUM 2.5 mg/dL (1.8-2.4); POTASSIUM 3.5 mmol/L (3.5-5.1)
[2020-04-24] MEDS ORDERED: FUROSEMIDE 20 MG/2 ML VIAL. IVP ONE (09:30)
[2020-04-24] MEDS: diphenhydrAMINE 50 MG/ML VIAL IVP SCH ×2 (09:41→22:35)
[2020-04-24] MEDS: ENOXAPARIN 40 MG/0.4 ML SYRINGE. SQ SCH (09:41)
[2020-04-24] MEDS: DOXYCYCLINE HYCLATE 100 MG in IV DEXTROSE 5% 100ML 100 ML IV SCH ×2 (09:42→22:35)
[2020-04-24] MEDS ORDERED: FUROSEMIDE 40 MG/4 ML VIAL. IVP ONE (10:30)
--- NOTE | 2020-04-24 11:20 | PDOC ---
[employer] PROGRESS NOTE Chief Complaint Chief Complaint COVID 19 infection Cerebral palsy acute hypoxic respiratory failure sepsis acute on chronic encephalopathy, cerebral palsy, skilled nursing resident at baseline obese, BMI 33 severe malnutrition, POA History of Present Illness History of Present Illness 04/24/2020 Patient seen and examined Discussed with RN Discussed with case management The patient asked me if he could ask a question I said sure He said "can I have a bottle of Coke" The knee asked for 2 bottles Seems to be at his baseline to me His discharge was held yesterday because of not passing his swallow study I think he probably is at his baseline we will go ahead and let him go back to his facility I doubt he wants a PEG tube? 04/23/2020 Patient seen and examined He is resting with no apparent distress Chart reviewed Discussed with case management 04/22/2020 Patient seen and examined He is on 5 L of oxygen He is on the [facility]- isolation unit Discussed with case management Discussed with RN Chart reviewed 04/21. weaning oxygen well, try PO intake today, may transfer out of ICU soon doing better DNR made 2 days ago, no visitor policy in hospital, COVID 19 patient cont current appears stable, hypoxic Vitals/I&O Vitals/I&O: Vital Signs Date Time Temp Pulse Resp B/P (MAP) Pulse Ox O2 Delivery O2 Flow Rate FiO2 04/24/20 07:00 98.6 64 19 149/84 (105) 94 Nasal Cannula 5.0 98.6 I & O 04/23/20 04/23/20 04/24/20 15:00 23:00 07:00 Intake Total 0 ml 0 ml 0 ml Output Total 600 ml Balance 0 ml -600 ml 0 ml Physical Exam General: Alert, Cooperative, No acute distress Heart: Regular rate (SR), Rubs Lungs: Crackles Abdomen: Soft Extremities: No cyanosis Skin: No significant lesion Labs Labs: Laboratory Tests Test 04/23/20 15:35 04/24/20 08:25 Sodium Level 153 mmol/L (136-145) 152 mmol/L (136-145) Potassium Level 2.8 mmol/L (3.5-5.1) 3.5 mmol/L (3.5-5.1) Chloride Level 116 mmol/L (98-107) 114 mmol/L (98-107) Carbon Dioxide Level 22 mmol/L (21-32) 23 mmol/L (21-32) Anion Gap 15 (6-14) 15 (6-14) Blood Urea Nitrogen 47 mg/dL (8-26) 44 mg/dL (8-26) Creatinine 0.7 mg/dL (0.7-1.3) 0.7 mg/dL (0.7-1.3) Estimated GFR (Cockcroft-Gault) 114.3 114.3 Glucose Level 274 mg/dL (70-99) 282 mg/dL (70-99) Calcium Level 8.0 mg/dL (8.5-10.1) 7.9 mg/dL (8.5-10.1) Magnesium Level 2.5 mg/dL (1.8-2.4) Assessment and Plan Assessmemt and Plan Problems Medical Problems: (1) 2019 novel coronavirus disease (COVID-19) Status: Acute (2) Anaphylactic reaction Status: Acute (3) Respiratory failure, acute Status: Acute COVID 19 infection Acute hypoxic respiratory failure Cerebral palsy acute on chronic encephalopathy, cerebral palsy, skilled nursing resident at baseline obese, BMI 33 severe malnutrition, POA Plan He seems to be at his baseline will re-discharge back to his facility with alf as I doubt he wants a feeding tube? COVID protocol IV antibiotics Duo nebs Oxygen Home meds DVT prophylaxis DNR See discharge orders Comment Review of Relevant I have reviewed the following items nara (where applicable) has been applied. Medications: Current Medications Medications (Trade) Dose Ordered Sig/Wendy Route PRN Reason Start Time Stop Time Status Last Admin Dose Admin Enoxaparin Sodium (Lovenox 40mg Syringe) 40 mg Q24H SQ 04/24/20 09:00 04/24/20 09:41 Potassium Chloride/Water 100 ml @ 100 mls/hr Q1H IV 04/23/20 17:00 04/23/20 20:59 DC 04/23/20 21:02 Amino Acids/ Glycerin/ Electrolytes 1,000 ml @ 75 mls/hr [id number] IV 04/23/20 16:45 04/23/20 16:52 Potassium Chloride/Water 100 ml @ 100 mls/hr Q1H IV 04/23/20 18:30 04/24/20 05:29 DC 04/24/20 10:46 Furosemide (Lasix) 40 mg 1X ONCE IVP 04/23/20 18:15 04/23/20 18:16 DC 04/23/20 18:31 Furosemide (Lasix) 20 mg 1X ONCE IVP 04/24/20 09:30 04/24/20 09:31 DC 04/24/20 09:41 Furosemide (Lasix) 40 mg 1X ONCE IVP 04/24/20 10:30 04/24/20 10:31 DC 04/24/20 10:45 Justicifation of Admission Dx: Justifications for Admission: Justification of Admission Dx: Yes Respiratory Failure: Severe Resp Distress KAYLEY ROMAN III DO Apr 24, 2020 11:20
[2020-04-24 11:54] VITALS: BP 150/72
--- NOTE | 2020-04-24 12:54 | PDOC ---
PATEL JIMENEZ CHIEF AIRPORT GUIDE 04/24/20 1254: CARDIO Progress Notes Date and Time Date of Service 04/24/2020 Time of Evaluation 1100 Subjective Subjective: Other (confused per RN but no discomfort) Vitals Vitals Vital Signs Date Time Temp Pulse Resp B/P (MAP) Pulse Ox O2 Delivery O2 Flow Rate FiO2 04/24/20 11:54 97.6 78 20 150/72 (98) 96 Nasal Cannula 5.0 97.6 Weight Weight [ ] Input and Output Intake and Output Intake and Output 04/24/20 07:00 Intake Total 0 ml Output Total 600 ml Balance -600 ml Intake Oral 0 ml Stool Total 600 ml Laboratory Labs Laboratory Tests Test 04/23/20 15:35 04/24/20 08:25 Sodium Level 153 mmol/L (136-145) 152 mmol/L (136-145) Potassium Level 2.8 mmol/L (3.5-5.1) 3.5 mmol/L (3.5-5.1) Chloride Level 116 mmol/L (98-107) 114 mmol/L (98-107) Carbon Dioxide Level 22 mmol/L (21-32) 23 mmol/L (21-32) Anion Gap 15 (6-14) 15 (6-14) Blood Urea Nitrogen 47 mg/dL (8-26) 44 mg/dL (8-26) Creatinine 0.7 mg/dL (0.7-1.3) 0.7 mg/dL (0.7-1.3) Estimated GFR (Cockcroft-Gault) 114.3 114.3 Glucose Level 274 mg/dL (70-99) 282 mg/dL (70-99) Calcium Level 8.0 mg/dL (8.5-10.1) 7.9 mg/dL (8.5-10.1) Magnesium Level 2.5 mg/dL (1.8-2.4) Microbiology Micro Microbiology 04/18/20 Urine Culture - Final, Complete 04/18/20 Blood Culture - Final, Complete NO GROWTH AFTER 5 DAYS Physical Exam Chest: Symmetric LUNGS: Other (coarse) Heart: RRR (SR/SB) Abdomen: Soft N/T Extremities: No Calf Tenderness, Other (2+ bilateral LE pitting edema) Neurology: alert, follow commands, confused Assessment Assessment 1. Covid-19 Pneumonia 2. Sepsis/UTI 3. Bradyarrhythmia: Sinus arrhythmia with episodes of 2 and 3 sec pauses with junctional episodes as well which is likely med induced. lowest in the 40s. Asymptomatic, hemodynamically stable 4. Prolonged QTc: notable for high dose aricept, prozac and zithromax. QTc at 534 5. Hx of dementia, cerebral palsy and seizures 6. Dementia 7. Hypokalemia: resolved 9. Hypernatremia: per PCP 10. Acute diastolic CHF: likely from IVF hydration Recommendations 1. No further aricept, consider alternate. Zithromax has been changed to doxycycline. Avoid QT prolonging agents and no AV diallo blocking agents. Consider alternative to prozac, defer to PCP . 2. SB 50s and no further pauses overnight. No indication for pacemaker. Continue antibiotics per pulmonary 3. x1 lasix. 4. May follow up in office as an outpt when recovered from Covid Justicifation of Admission Dx: Justifications for Admission: Justification of Admission Dx: Yes Respiratory Failure: Severe Resp Distress JASON DUARTE MD 04/24/20 1337: CARDIO Progress Notes Assessment Assessment Patient seen and evaluated. Discussed with our nurse practitioner I agree with his assessment and plan. Covid-19 Pneumonia. Followed by ID and pulmonary. Bradyarrhythmia: Sinus arrhythmia with initial episodes of 2 and 3 sec pauses with junctional episodes as well which is likely med induced. lowest in the 40s. Telemetry improving. Asymptomatic, hemodynamically stable. Aricept on hold Prolonged QTc: notable for high dose aricept, prozac and zithromax. QTc at 534 Hx of dementia, cerebral palsy and seizures Hypernatremia: per PCP PATEL JIMENEZ APRN Apr 24, 2020 12:54 JASON DUARTE MD Apr 24, 2020 13:37
--- NOTE | 2020-04-24 14:39 | PDOC2 ---
GI CONSULT Reason For Consult: needs PEG HPI: HPI: 64 y/o male w/ h/o cerebral palsy admitted w/ COVID-19+ pneumonia from [facility]. Abnormal swallow evals w/ aspiration. Dr. Delmis Albarado would like him to have a PEG tube so he is rechecking COVID. D/w nursing - aspiration pneumonia in the past w/ abnormal swallow eval then - was apparently eating soft diet prior to admission. Not much history from him. Denies pain. Staff present checking vitals - he doesn't like the blood pressure cuff. H/o pancreatitis prior to cholecystectomy for stones (w/ normal IOC). H/o ACD, normal B12 in 2017. Past hematology eval for coagulopathy related to poor nutrition. PMH: PMH: CP, HLD, asthma, pneumonia, DRE, seizures cholecystectomy Social History: Smoke: No ALCOHOL: none Drugs: None ROS: Per HPI Vitals: Vitals: Vital Signs Date Time Temp Pulse Resp B/P (MAP) Pulse Ox O2 Delivery O2 Flow Rate FiO2 04/24/20 11:54 97.6 78 20 150/72 (98) 96 Nasal Cannula 5.0 97.6 Labs: Labs: Laboratory Tests Test 04/23/20 15:35 04/24/20 08:25 Sodium Level 153 mmol/L (136-145) 152 mmol/L (136-145) Potassium Level 2.8 mmol/L (3.5-5.1) 3.5 mmol/L (3.5-5.1) Chloride Level 116 mmol/L (98-107) 114 mmol/L (98-107) Carbon Dioxide Level 22 mmol/L (21-32) 23 mmol/L (21-32) Anion Gap 15 (6-14) 15 (6-14) Blood Urea Nitrogen 47 mg/dL (8-26) 44 mg/dL (8-26) Creatinine 0.7 mg/dL (0.7-1.3) 0.7 mg/dL (0.7-1.3) Estimated GFR (Cockcroft-Gault) 114.3 114.3 Glucose Level 274 mg/dL (70-99) 282 mg/dL (70-99) Calcium Level 8.0 mg/dL (8.5-10.1) 7.9 mg/dL (8.5-10.1) Magnesium Level 2.5 mg/dL (1.8-2.4) BLOOD CULTURE Final NO GROWTH AFTER 5 DAYS URINE CULTURE Final Final No Growth on 04/20/20 at 1006 Allergies: Coded Allergies: No Known Drug Allergies (Unverified , 06/28/17) Medications: Current Medications Medications (Trade) Dose Ordered Sig/Wendy Route PRN Reason Start Time Stop Time Status Last Admin Dose Admin Enoxaparin Sodium (Lovenox 40mg Syringe) 40 mg Q24H SQ 04/24/20 09:00 04/24/20 09:41 Potassium Chloride/Water 100 ml @ 100 mls/hr Q1H IV 04/23/20 17:00 04/23/20 20:59 DC 04/23/20 21:02 Amino Acids/ Glycerin/ Electrolytes 1,000 ml @ 30 mls/hr Q24H IV 04/23/20 16:45 04/23/20 16:52 Potassium Chloride/Water 100 ml @ 100 mls/hr Q1H IV 04/23/20 18:30 04/24/20 05:29 DC 04/24/20 13:21 Furosemide (Lasix) 40 mg 1X ONCE IVP 04/23/20 18:15 04/23/20 18:16 DC 04/23/20 18:31 Furosemide (Lasix) 20 mg 1X ONCE IVP 04/24/20 09:30 04/24/20 09:31 DC 04/24/20 09:41 Furosemide (Lasix) 40 mg 1X ONCE IVP 04/24/20 10:30 04/24/20 10:31 DC 04/24/20 10:45 Imaging: Imaging: CXR 04/18 Impression: Bilateral infiltrates likely atypical pneumonia. LE US 04/21 Impression: 1. No thrombus is demonstrated of the visualized of the right lower extremity veins, right peroneal vein not seen. LINEN ROOM ATTENDANT Bedside Swallow Eval 04/21 Bedside swallow eval completed. Pt seen in ICU. See full rpt in interventions. IMPRESSIONS: Pt presents w/ s/s dysphagia and poss s/s aspiration across consistencies-puree, solids and honey thick liquids. Pt appears at high risk of aspiration. He has a hx of CP, recent adm 02/2020 for pneumonia w/negative COVID19 test x2 and current adm w/positive COVID19 test. Suspect current oropharyngeal dysphagia r/t current general weakness associated w/acute dx. Cannot r/o some degree of chronic dysphagia. Videoswallow study not feasible at this time in this COVID19+ pt. RECOMMENDATIONS: NPO w/aggressive oral care. LINEN ROOM ATTENDANT f/u for dysphagia per POC. Results d/w CARLOS Donaldson. PE: GEN: appears chronically ill HEENT: Atraumatic LUNGS: diminished, NC 5L HEART: RRR ABD: BS+, soft, non-tender EXTREMITY: No edema SKIN: No rashes, no jaundice NEURO/PSYCH: awake and alert, does not verbalize much A/P: A/P: Resp failure, COVID19+, dysphagia/aspiration CP ACD, hypernatremia S/p cholecystectomy -- Per discussion w/ Dr. Benites, family desires PEG - problematic w/ +COVID status, resp issues. Will follow-up when COVID rechecked. RUDY CORONA Apr 24, 2020 14:39
[2020-04-24 15:14] VITALS: BP 145/77
--- NOTE | 2020-04-24 17:06 | NUR ---
SW following. Spoke with RN and reviewed chart. Spoke with Dr. Benites. Pt not ready for discharge. Pt to return to [facility] when stable. SW to continue following.
[2020-04-24 19:00] VITALS: BP 118/81
[2020-04-24] MEDS: FLUoxetine HCL 20 MG CAPSULE PO SCH (21:00)
[2020-04-24] MEDS: DIVALPROEX DELAYED RELEASE 500 MG TABLET.DR. PO SCH (21:00)
[2020-04-24] MEDS: ASPIRIN ENTERIC COATED 81 MG TABLET.DR. PO SCH (21:00)
[2020-04-24] MEDS: GABAPENTIN 300 MG CAPSULE. PO SCH (21:00)
[2020-04-24 23:27] VITALS: BP 135/59
[2020-04-25] MEDS: PIPERACILLIN/TAZOBACTAM 4.5 GM in IV NORMAL SALINE 100ML 100 ML IV SCH ×5 (00:40→23:14)
[2020-04-25 03:39] VITALS: BP 144/65
[2020-04-25] MEDS: AMINO AC 3%/ELECTROLYTE/GLYCER 1,000 ML IV SCH (04:37)
[2020-04-25] MEDS: methylPREDNISolone SOD SUCC PF 40 MG/ML VIAL. IV SCH ×3 (06:12→20:44)
[2020-04-25 07:59] VITALS: BP 142/61
[2020-04-25] MEDS: GABAPENTIN 100 MG CAPSULE. PO SCH ×2 (08:00→16:00)
[2020-04-25] MEDS: DIVALPROEX DELAYED RELEASE 250 MG TABLET.DR. PO SCH (09:00)
[2020-04-25] MEDS: OXYBUTYNIN CHLORIDE 5 MG TABLET PO SCH ×2 (09:00→21:00)
[2020-04-25] MEDS: LACTOBACILLUS RHAMNOSUS GG 1 CAPSULE. PO SCH ×2 (09:00→21:00)
[2020-04-25] MEDS: SENNOSIDES/DOCUSATE 8.6/50MG TABLET. PO SCH ×2 (09:00→21:00)
[2020-04-25] MEDS: CHOLECALCIFEROL (VITAMIN D3) 5,000 UNIT CAPSULE PO SCH (09:00)
[2020-04-25] MEDS: CALCIUM CARB/VIT D3 500/200 TABLET. PO SCH (09:00)
[2020-04-25] MEDS: ZINC SULFATE 220 MG CAPSULE. PO SCH (09:00)
[2020-04-25] MEDS: diphenhydrAMINE 50 MG/ML VIAL IVP SCH ×2 (10:35→20:44)
[2020-04-25] MEDS: ENOXAPARIN 40 MG/0.4 ML SYRINGE. SQ SCH (10:35)
[2020-04-25] MEDS: DOXYCYCLINE HYCLATE 100 MG in IV DEXTROSE 5% 100ML 100 ML IV SCH ×2 (10:36→20:44)
[2020-04-25 11:37] VITALS: BP 142/68
--- NOTE | 2020-04-25 13:41 | PDOC ---
PULMONARY PROGRESS NOTES Subjective on 02 appears comfortable Vitals Vital Signs Date Time Temp Pulse Resp B/P (MAP) Pulse Ox O2 Delivery O2 Flow Rate FiO2 04/25/20 11:37 98.8 58 24 142/68 (92) 95 Nasal Cannula 3.0 98.8 General: Alert Lungs: Crackles Cardiovascular: S1, S2 Abdomen: Soft Neuro Exam: Alert Extremities: Other (Mild edema) Skin: Warm Labs Laboratory Tests Test 04/23/20 15:35 04/24/20 08:25 Sodium Level 153 mmol/L (136-145) 152 mmol/L (136-145) Potassium Level 2.8 mmol/L (3.5-5.1) 3.5 mmol/L (3.5-5.1) Chloride Level 116 mmol/L (98-107) 114 mmol/L (98-107) Carbon Dioxide Level 22 mmol/L (21-32) 23 mmol/L (21-32) Anion Gap 15 (6-14) 15 (6-14) Blood Urea Nitrogen 47 mg/dL (8-26) 44 mg/dL (8-26) Creatinine 0.7 mg/dL (0.7-1.3) 0.7 mg/dL (0.7-1.3) Estimated GFR (Cockcroft-Gault) 114.3 114.3 Glucose Level 274 mg/dL (70-99) 282 mg/dL (70-99) Calcium Level 8.0 mg/dL (8.5-10.1) 7.9 mg/dL (8.5-10.1) Magnesium Level 2.5 mg/dL (1.8-2.4) Medications Active Scripts Medications Dose Route/Sig Max Daily Dose Days Date Category Doxycycline Hyclate 100 Mg Tablet 100 Mg PO BID 10 03/06/20 Rx [Ceftriaxone Sodium] 2 GM Vial 2 Gm IVP Q24H 10 03/06/20 Rx Risperdal (Risperidone) 0.5 Mg Tablet 3.5 Mg PO QHS 02/29/20 Reported Risperdal (Risperidone) 2 Mg Tablet 2 Mg PO DAILY 02/29/20 Reported Divalproex Sodium 250 Mg Tablet.dr 750 Mg PO DAILY 02/29/20 Reported Fluoxetine Hcl 40 Mg Capsule 1 Cap PO HS 02/29/20 Reported Divalproex Sodium 500 Mg Tablet.dr 1,000 Mg PO HS 02/29/20 Reported Ventolin Hfa Inhaler (Albuterol Sulfate) 18 Gm Hfa.aer.ad 2 Puff INH PRN Q4HRS 02/29/20 Reported Oxybutynin Chloride 5 Mg Tablet 1 Tab PO BID 02/29/20 Reported Senokot-S Tablet (Sennosides/Docusate Sodium) 1 Each Tablet 1 Tab PO BID 30 02/29/20 Reported Gabapentin (Gabapentin) 100 Mg Capsule 100 Mg PO DAILY08 02/29/20 Reported Gabapentin (Gabapentin) 300 Mg Capsule 300 Mg PO HS 02/29/20 Reported Donepezil Hcl 10 Mg Tablet 1 Tab PO DAILY 02/29/20 Reported Modafinil 100 Mg Tablet 100 Mg PO DAILY 02/29/20 Reported Multi Vitamin Daily (Multivitamin) 1 Each Tablet 1 Tab PO DAILY 30 02/29/20 Reported Oyster Shell Calcium + D Tab (Calcium Carbonate/Vitamin D3) 1 Each Tablet 1 Tab PO DAILY 30 02/29/20 Reported Gabapentin (Gabapentin) 100 Mg Capsule 100 Mg PO DAILY16 02/29/20 Reported Acetaminophen 325 Mg Tablet 1 Tab PO PRN Q6HRS PRN 30 02/29/20 Reported Potassium Chloride (Potassium Chloride) 20 Meq Tablet.er 20 Meq PO BID 02/29/20 Reported Vitamin E Ointment (Vit E Acetate/Wheat Germ/Aloe) 60 Gm Oint...g. 60 Gm TP HS 06/20/17 Reported Niaspan (Niacin) 1,000 Mg Tab.er.24h 1,000 Mg PO HS 06/20/17 Reported Vitamin D (Cholecalciferol (Vitamin D3)) 2,000 Unit Capsule 2,000 Unit PO HS 06/20/17 Reported Aspir 81 (Aspirin) 81 Mg Tablet.dr 81 Mg PO HS 06/20/17 Reported Comments Impression: Bilateral infiltrates likely atypical pneumonia. Impression . Acute hypoxic respiratory failure likely secondary to atypical pneumonia COVID-19 infection/pneumonia Hypotension Elevated d-dimer, nonspecific Anaphylactic reaction Thrombocytopenia Severe sepsis Right lower extremity cellulitis Cerebral palsy Obstructive sleep apnea Dysphasia Seizure disorder Dysphasia Possible pulmonary edema Bilateral venous Doppler 1. No thrombus is demonstrated of the visualized of the right lower extremity veins, right peroneal vein not seen. Plan . We will review repeat chest x-ray DVT prophylax Continue support with oxygen supplementation 02 titration Patient was treated for his allergic reaction/anaphylaxis with steroids epinephrine and breathing treatments and Pepcid. Continue empiric antibiotics Change solumedrol to 40 bid Continue home regiment for seizure disorder and mood disorder DVT and GI prophylaxis Discussed with RN and RT CHENTE LOZA MD Apr 25, 2020 13:41
[2020-04-25 15:59] VITALS: BP 140/72
[2020-04-25 19:56] VITALS: BP 133/65
[2020-04-25] MEDS: ASPIRIN ENTERIC COATED 81 MG TABLET.DR. PO SCH (21:00)
[2020-04-25] MEDS: DIVALPROEX DELAYED RELEASE 500 MG TABLET.DR. PO SCH (21:00)
[2020-04-25] MEDS: GABAPENTIN 300 MG CAPSULE. PO SCH (21:00)
[2020-04-25] MEDS: FLUoxetine HCL 20 MG CAPSULE PO SCH (21:00)
--- NOTE | 2020-04-25 21:25 | PDOC ---
GENERAL General: Patient examined chart reviewed today is hospital day 8 for this patient with C OVID-19 pneumonia we appreciate subspecialty support. We will continue current management. Labs ordered for the morning. Problems: (1) 2019 novel coronavirus disease (COVID-19) (2) Respiratory failure, acute VITAL SIGNS Vital Signs/I&O: Vital Signs Date Time Temp Pulse Resp B/P (MAP) Pulse Ox O2 Delivery O2 Flow Rate FiO2 04/25/20 19:56 98.1 65 27 133/65 (87) 92 Nasal Cannula 3.0 98.1 I & O 04/24/20 04/24/20 04/25/20 15:00 23:00 07:00 Intake Total 0 ml 0 ml Output Total 1000 ml 500 ml Balance 0 ml -1000 ml -500 ml Patient is laying in bed completely a phasic makes eye contact and tries to follow commands in no acute distress HEENT exam is unremarkable for acute abnormality Chest is clear to auscultation Heart S1-S2 normal regular rate and rhythm no murmurs or gallops are noted Abdomen soft nontender nondistended no masses organomegaly noted Extremity exam is unremarkable for acute abnormality ALLERGIES Allergies: Allergies Coded Allergies Type Severity Reaction Last Updated Verified No Known Drug Allergies 06/28/17 No MEDS Medications: Current Medications Medications (Trade) Dose Ordered Sig/Wendy Route PRN Reason Start Time Stop Time Status Last Admin Dose Admin Methylprednisolone Sodium Succinate (SOLU-Medrol 40MG VIAL) 40 mg Q12HR IV 04/25/20 21:00 04/25/20 20:44 ASSESSMENT & PLAN A&P Plan as noted above This note was created using Down and may have omissions and/or errors due to the nature of real-time voice 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 Justicifation of Admission Dx: Justifications for Admission: Justification of Admission Dx: Yes Respiratory Failure: Severe Resp Distress TREVOR AVENDANO MD Apr 25, 2020 21:25
[2020-04-25 23:50] VITALS: BP 101/59
[2020-04-26 03:56] VITALS: BP 138/77
[2020-04-26 04:38] LABS: BASO % 0 % (0-3); EOS % 0 % (0-3); HEMATOCRIT 37.1 % (39.0-53.0); HEMOGLOBIN 12.5 g/dL (13.0-17.5); LYMPH # 0.7 x10^3/uL (1.0-4.8); LYMPH % 10 % (24-48); MEAN CORPUSCULAR HEMOGLOBIN 34 pg (25-35); MEAN CORPUSCULAR HGB CONC 34 g/dL (31-37); MEAN CORPUSCULAR VOLUME 100 fL (79-100); MONO # 0.3 x10^3/uL (0.0-1.1); MONO % 4 % (0-9); NEUT # 5.6 x10^3/uL (1.8-7.7); NEUT % 86 % (31-73); PLATELET COUNT 117 x10^3/uL (140-400); RED BLOOD COUNT 3.72 x10^6/uL (4.30-5.70); RED CELL DISTRIBUTION WIDTH 14.9 % (11.5-14.5); WHITE BLOOD COUNT 6.5 x10^3/uL (4.0-11.0)
[2020-04-26 04:59] LABS: ALBUMIN 2.2 g/dL (3.4-5.0); ALBUMIN/GLOBULIN RATIO 0.6 (1.0-1.7); CALCIUM 8.5 mg/dL (8.5-10.1); CREATININE 0.7 mg/dL (0.7-1.3); GFR 114.3; POTASSIUM 3.7 mmol/L (3.5-5.1); TOTAL PROTEIN 6.1 g/dL (6.4-8.2)
[2020-04-26] MEDS: AMINO AC 3%/ELECTROLYTE/GLYCER 1,000 ML IV SCH (05:32)
[2020-04-26] MEDS: PIPERACILLIN/TAZOBACTAM 4.5 GM in IV NORMAL SALINE 100ML 100 ML IV SCH ×4 (05:33→22:40)
--- NOTE | 2020-04-26 06:39 | NUR ---
IV in right hand infiltrated. 2 nurses attempted restart without success. Will notify nursing supervisor sandblaster.
[2020-04-26 07:00] VITALS: BP 119/70
[2020-04-26] MEDS: GABAPENTIN 100 MG CAPSULE. PO SCH ×2 (07:50→15:58)
[2020-04-26] MEDS: LACTOBACILLUS RHAMNOSUS GG 1 CAPSULE. PO SCH ×2 (09:00→19:57)
[2020-04-26] MEDS: DIVALPROEX DELAYED RELEASE 250 MG TABLET.DR. PO SCH (09:00)
[2020-04-26] MEDS: methylPREDNISolone SOD SUCC PF 40 MG/ML VIAL. IV SCH ×2 (09:00→21:00)
[2020-04-26] MEDS: ZINC SULFATE 220 MG CAPSULE. PO SCH (09:00)
[2020-04-26] MEDS: SENNOSIDES/DOCUSATE 8.6/50MG TABLET. PO SCH ×2 (09:00→19:58)
[2020-04-26] MEDS: DOXYCYCLINE HYCLATE 100 MG in IV DEXTROSE 5% 100ML 100 ML IV SCH ×2 (09:00→21:00)
[2020-04-26] MEDS: OXYBUTYNIN CHLORIDE 5 MG TABLET PO SCH ×2 (09:00→19:57)
[2020-04-26] MEDS: CALCIUM CARB/VIT D3 500/200 TABLET. PO SCH (09:00)
[2020-04-26] MEDS: diphenhydrAMINE 50 MG/ML VIAL IVP SCH ×2 (09:00→21:00)
[2020-04-26] MEDS: CHOLECALCIFEROL (VITAMIN D3) 5,000 UNIT CAPSULE PO SCH (09:00)
[2020-04-26 11:00] VITALS: BP 132/56
[2020-04-26] MEDS: ENOXAPARIN 40 MG/0.4 ML SYRINGE. SQ SCH (11:33)
--- NOTE | 2020-04-26 13:02 | PDOC ---
PULMONARY PROGRESS NOTES Subjective on 02 appears comfortable alert doesnt follow my commands Vitals Vital Signs Date Time Temp Pulse Resp B/P (MAP) Pulse Ox O2 Delivery O2 Flow Rate FiO2 04/26/20 11:00 97.4 64 18 132/56 (81) 95 Nasal Cannula 3.0 97.4 General: Alert Lungs: Crackles Cardiovascular: S1, S2 Abdomen: Soft Neuro Exam: Alert Extremities: Other (Mild edema) Skin: Warm Labs Laboratory Tests Test 04/24/20 17:30 04/26/20 04:15 Coronavirus (PCR) Detected (Not Detected) White Blood Count 6.5 x10^3/uL (4.0-11.0) Red Blood Count 3.72 x10^6/uL (4.30-5.70) Hemoglobin 12.5 g/dL (13.0-17.5) Hematocrit 37.1 % (39.0-53.0) Mean Corpuscular Volume 100 fL (79-100) Mean Corpuscular Hemoglobin 34 pg (25-35) Mean Corpuscular Hemoglobin Concent 34 g/dL (31-37) Red Cell Distribution Width 14.9 % (11.5-14.5) Platelet Count 117 x10^3/uL (140-400) Neutrophils (%) (Auto) 86 % (31-73) Lymphocytes (%) (Auto) 10 % (24-48) Monocytes (%) (Auto) 4 % (0-9) Eosinophils (%) (Auto) 0 % (0-3) Basophils (%) (Auto) 0 % (0-3) Neutrophils # (Auto) 5.6 x10^3/uL (1.8-7.7) Lymphocytes # (Auto) 0.7 x10^3/uL (1.0-4.8) Monocytes # (Auto) 0.3 x10^3/uL (0.0-1.1) Eosinophils # (Auto) 0.0 x10^3/uL (0.0-0.7) Basophils # (Auto) 0.0 x10^3/uL (0.0-0.2) Sodium Level 155 mmol/L (136-145) Potassium Level 3.7 mmol/L (3.5-5.1) Chloride Level 116 mmol/L (98-107) Carbon Dioxide Level 19 mmol/L (21-32) Anion Gap 20 (6-14) Blood Urea Nitrogen 58 mg/dL (8-26) Creatinine 0.7 mg/dL (0.7-1.3) Estimated GFR (Cockcroft-Gault) 114.3 BUN/Creatinine Ratio 83 (6-20) Glucose Level 310 mg/dL (70-99) Calcium Level 8.5 mg/dL (8.5-10.1) Total Bilirubin 1.0 mg/dL (0.2-1.0) Aspartate Amino Transf (AST/SGOT) 19 U/L (15-37) Alanine Aminotransferase (ALT/SGPT) 18 U/L (16-63) Alkaline Phosphatase 46 U/L (46-116) Total Protein 6.1 g/dL (6.4-8.2) Albumin 2.2 g/dL (3.4-5.0) Albumin/Globulin Ratio 0.6 (1.0-1.7) Laboratory Tests Test 04/26/20 04:15 White Blood Count 6.5 x10^3/uL (4.0-11.0) Red Blood Count 3.72 x10^6/uL (4.30-5.70) Hemoglobin 12.5 g/dL (13.0-17.5) Hematocrit 37.1 % (39.0-53.0) Mean Corpuscular Volume 100 fL (79-100) Mean Corpuscular Hemoglobin 34 pg (25-35) Mean Corpuscular Hemoglobin Concent 34 g/dL (31-37) Red Cell Distribution Width 14.9 % (11.5-14.5) Platelet Count 117 x10^3/uL (140-400) Neutrophils (%) (Auto) 86 % (31-73) Lymphocytes (%) (Auto) 10 % (24-48) Monocytes (%) (Auto) 4 % (0-9) Eosinophils (%) (Auto) 0 % (0-3) Basophils (%) (Auto) 0 % (0-3) Neutrophils # (Auto) 5.6 x10^3/uL (1.8-7.7) Lymphocytes # (Auto) 0.7 x10^3/uL (1.0-4.8) Monocytes # (Auto) 0.3 x10^3/uL (0.0-1.1) Eosinophils # (Auto) 0.0 x10^3/uL (0.0-0.7) Basophils # (Auto) 0.0 x10^3/uL (0.0-0.2) Sodium Level 155 mmol/L (136-145) Potassium Level 3.7 mmol/L (3.5-5.1) Chloride Level 116 mmol/L (98-107) Carbon Dioxide Level 19 mmol/L (21-32) Anion Gap 20 (6-14) Blood Urea Nitrogen 58 mg/dL (8-26) Creatinine 0.7 mg/dL (0.7-1.3) Estimated GFR (Cockcroft-Gault) 114.3 BUN/Creatinine Ratio 83 (6-20) Glucose Level 310 mg/dL (70-99) Calcium Level 8.5 mg/dL (8.5-10.1) Total Bilirubin 1.0 mg/dL (0.2-1.0) Aspartate Amino Transf (AST/SGOT) 19 U/L (15-37) Alanine Aminotransferase (ALT/SGPT) 18 U/L (16-63) Alkaline Phosphatase 46 U/L (46-116) Total Protein 6.1 g/dL (6.4-8.2) Albumin 2.2 g/dL (3.4-5.0) Albumin/Globulin Ratio 0.6 (1.0-1.7) Medications Active Scripts Medications Dose Route/Sig Max Daily Dose Days Date Category Doxycycline Hyclate 100 Mg Tablet 100 Mg PO BID 10 03/06/20 Rx [Ceftriaxone Sodium] 2 GM Vial 2 Gm IVP Q24H 10 03/06/20 Rx Risperdal (Risperidone) 0.5 Mg Tablet 3.5 Mg PO QHS 02/29/20 Reported Risperdal (Risperidone) 2 Mg Tablet 2 Mg PO DAILY 02/29/20 Reported Divalproex Sodium 250 Mg Tablet.dr 750 Mg PO DAILY 02/29/20 Reported Fluoxetine Hcl 40 Mg Capsule 1 Cap PO HS 02/29/20 Reported Divalproex Sodium 500 Mg Tablet.dr 1,000 Mg PO HS 02/29/20 Reported Ventolin Hfa Inhaler (Albuterol Sulfate) 18 Gm Hfa.aer.ad 2 Puff INH PRN Q4HRS 02/29/20 Reported Oxybutynin Chloride 5 Mg Tablet 1 Tab PO BID 02/29/20 Reported Senokot-S Tablet (Sennosides/Docusate Sodium) 1 Each Tablet 1 Tab PO BID 30 02/29/20 Reported Gabapentin (Gabapentin) 100 Mg Capsule 100 Mg PO DAILY08 02/29/20 Reported Gabapentin (Gabapentin) 300 Mg Capsule 300 Mg PO HS 02/29/20 Reported Donepezil Hcl 10 Mg Tablet 1 Tab PO DAILY 02/29/20 Reported Modafinil 100 Mg Tablet 100 Mg PO DAILY 02/29/20 Reported Multi Vitamin Daily (Multivitamin) 1 Each Tablet 1 Tab PO DAILY 30 02/29/20 Reported Oyster Shell Calcium + D Tab (Calcium Carbonate/Vitamin D3) 1 Each Tablet 1 Tab PO DAILY 30 02/29/20 Reported Gabapentin (Gabapentin) 100 Mg Capsule 100 Mg PO DAILY16 02/29/20 Reported Acetaminophen 325 Mg Tablet 1 Tab PO PRN Q6HRS PRN 30 02/29/20 Reported Potassium Chloride (Potassium Chloride) 20 Meq Tablet.er 20 Meq PO BID 02/29/20 Reported Vitamin E Ointment (Vit E Acetate/Wheat Germ/Aloe) 60 Gm Oint...g. 60 Gm TP HS 06/20/17 Reported Niaspan (Niacin) 1,000 Mg Tab.er.24h 1,000 Mg PO HS 06/20/17 Reported Vitamin D (Cholecalciferol (Vitamin D3)) 2,000 Unit Capsule 2,000 Unit PO HS 06/20/17 Reported Aspir 81 (Aspirin) 81 Mg Tablet.dr 81 Mg PO HS 06/20/17 Reported Comments Impression: Bilateral infiltrates likely atypical pneumonia. Impression . Acute hypoxic respiratory failure likely secondary to atypical pneumonia COVID-19 infection/pneumonia Hypotension Elevated d-dimer, nonspecific Anaphylactic reaction Thrombocytopenia Severe sepsis Right lower extremity cellulitis Cerebral palsy Obstructive sleep apnea Dysphasia Seizure disorder Dysphasia Possible pulmonary edema Bilateral venous Doppler 1. No thrombus is demonstrated of the visualized of the right lower extremity veins, right peroneal vein not seen. Plan . 02 titration DVT prophylaxis Continue support with oxygen supplementation Patient was treated for his allergic reaction/anaphylaxis with steroids epinephrine and breathing treatments and Pepcid. Continue empiric antibiotics cont solumedrol 40 bid Continue home regiment for seizure disorder and mood disorder DVT and GI prophylaxis Discussed with RN and RT CHENTE LOZA MD Apr 26, 2020 13:02
[2020-04-26 15:00] VITALS: BP 133/54
--- NOTE | 2020-04-26 15:03 | PDOC ---
GENERAL General: Patient examined chart reviewed discussed with nursing today is hospital day 9 for this patient with marked debility at baseline with cerebral palsy, dementia, seizure disorder, [facility] ill found to have COVID-19 he has continued to clinically deteriorate. Unfortunately his IV has been difficult to maintain. Discussions are ongoing with family and whether he needs a PEG tube for tube feeding he has been completely unable to swallow. The patient is very thirsty asking for water. He has markedly hyponatremic suggesting his dehydrated state. We will need to start him on half-normal saline as soon as his PICC line is placed. Family has agreed to pack but are still thinking about whether to submit him to PEG tube. No other change in management made today. I appreciate subspecialty support. Total time today is 30 minutes with greater than 50% in counseling and coordination of care most of which in discussion with nursing and patient. Problems: (1) Swallowing disorder (2) 2019 novel coronavirus disease (COVID-19) (3) Cerebral palsy (4) Respiratory failure, acute VITAL SIGNS Vital Signs/I&O: Vital Signs Date Time Temp Pulse Resp B/P (MAP) Pulse Ox O2 Delivery O2 Flow Rate FiO2 04/26/20 11:00 97.4 64 18 132/56 (81) 95 Nasal Cannula 3.0 97.4 I & O 04/25/20 04/25/20 04/26/20 15:00 23:00 07:00 Intake Total 300 ml Output Total 850 ml 650 ml Balance -850 ml -350 ml In general the patient is laying in bed appears comfortable but agitated tells me he wants of water HEENT exam is notable for a nontender ballotable mass on his forehead consistent with lipoma. He has very dry mucous membranes and is breathing through his open mouth quite dyspneic as well Chest is clear to auscultation anteriorly though diminished air entry throughout Heart S1-S2 normal regular rate and rhythm no murmurs or gallops are noted Abdomen soft nontender nondistended no masses organomegaly noted Extremity exam is notable for 2+ bipedal edema right greater than left ALLERGIES Allergies: Allergies Coded Allergies Type Severity Reaction Last Updated Verified No Known Drug Allergies 06/28/17 No MEDS Medications: Current Medications Medications (Trade) Dose Ordered Sig/Wendy Start Time Stop Time Status Last Admin Dose Admin Acetaminophen (Tylenol) 325 mg PRN Q6HRS PRN 04/19/20 08:30 Albuterol Sulfate (Ventolin Neb Soln) 2.5 mg 1X ONCE 04/18/20 14:00 04/18/20 14:01 DC 04/18/20 14:01 Amino Acids/ Glycerin/ Electrolytes 1,000 ml @ 30 mls/hr Q24H 04/23/20 16:45 04/26/20 05:32 Aspirin (Ecotrin) 81 mg HS 04/19/20 21:00 Azithromycin 250 ml @ 250 mls/hr DAILY 04/19/20 09:00 04/18/20 17:55 DC Azithromycin 500 mg/Sodium Chloride 250 ml @ 250 mls/hr Q24H 04/18/20 19:00 04/21/20 20:22 DC 04/20/20 18:14 Calcium/Vitamin D (Oscal D 500mg/ 200uts) 1 tab DAILY 04/19/20 09:00 Ceftriaxone Sodium (Rocephin) 1 gm 1X ONCE 04/18/20 14:00 04/18/20 14:01 DC 04/18/20 13:56 Dexamethasone Sodium Phosphate (Decadron) 10 mg 1X ONCE 04/18/20 14:00 04/18/20 14:01 DC 04/18/20 13:56 Diphenhydramine HCl (Benadryl) 25 mg BID 04/18/20 21:00 04/25/20 20:44 Divalproex Sodium (Depakote) 1,000 mg HS 04/19/20 21:00 Donepezil HCl (Aricept) 10 mg DAILY 04/19/20 09:00 04/21/20 16:19 DC Doxycycline Hyclate 100 mg/ Dextrose 100 ml @ 50 mls/hr Q12HR 04/21/20 21:00 04/25/20 20:44 Enoxaparin Sodium (Lovenox 100mg Syringe) 100 mg Q12HR 04/19/20 12:30 04/23/20 15:45 DC 04/23/20 09:13 Enoxaparin Sodium (Lovenox 40mg Syringe) 40 mg Q24H 04/24/20 09:00 04/26/20 11:33 Enoxaparin Sodium (Lovenox Per Pharmacy Treatment Dosing) 1 each PRN DAILY PRN 04/19/20 12:00 Cancel Epinephrine HCl (Adrenalin) 0.3 mg 1X ONCE 04/18/20 14:00 04/18/20 14:01 DC 04/18/20 13:56 Famotidine (Pepcid Vial) 20 mg 1X ONCE 04/18/20 14:00 04/18/20 14:01 DC 04/18/20 13:55 Famotidine (Pepcid) 20 mg BID 04/18/20 21:00 04/19/20 07:58 DC Fluoxetine HCl (PROzac) 40 mg QHS 04/19/20 21:00 Furosemide (Lasix) 40 mg 1X ONCE 04/24/20 10:30 04/24/20 10:31 DC 04/24/20 10:45 Gabapentin (Neurontin) 300 mg HS 04/19/20 21:00 Lactobacillus Rhamnosus (Culturelle) 1 cap BID 04/21/20 21:00 Methylprednisolone Sodium Succinate (SOLU-Medrol 40MG VIAL) 40 mg Q12HR 04/25/20 21:00 04/25/20 20:44 Nystatin (Nystop) 1 kimmy PRN BID PRN 04/18/20 19:45 Oxybutynin Chloride (Ditropan) 5 mg BID 04/19/20 09:00 Piperacillin Sod/ Tazobactam Sod (Zosyn Per Pharmacy) 1 each PRN DAILY PRN 04/18/20 17:45 Piperacillin Sod/ Tazobactam Sod 4.5 gm/Sodium Chloride 100 ml @ 200 mls/hr Q6HRS 04/18/20 18:00 04/26/20 05:33 Potassium Chloride/Water 100 ml @ 100 mls/hr Q1H 04/23/20 18:30 04/24/20 05:29 DC 04/24/20 13:21 Senna/Docusate Sodium (Senna Plus) 1 tab BID 04/19/20 09:00 Sodium Chloride 1,000 ml @ 75 mls/hr [id number] 04/18/20 22:00 04/23/20 18:09 DC 04/22/20 19:48 Sterile Water (WATER for RESP) 1,000 ml CONT PRN 04/19/20 17:15 04/20/20 01:54 Vitamin A/Vitamin D (Vitamin A & D Ointment) 1 kimmy PRN Q1HR PRN 04/18/20 19:45 04/21/20 09:56 Vitamin D (Vitamin D3) 5,000 unit DAILY 04/19/20 17:00 Zinc Sulfate (Orazinc) 220 mg DAILY 04/19/20 17:00 Current Medications Medications (Trade) Dose Ordered Sig/Wendy Route PRN Reason Start Time Stop Time Status Last Admin Dose Admin Methylprednisolone Sodium Succinate (SOLU-Medrol 40MG VIAL) 40 mg Q12HR IV 04/25/20 21:00 04/25/20 20:44 LAB Lab: Laboratory Tests Test 04/26/20 04:15 White Blood Count 6.5 x10^3/uL (4.0-11.0) Red Blood Count 3.72 x10^6/uL (4.30-5.70) L Hemoglobin 12.5 g/dL (13.0-17.5) L Hematocrit 37.1 % (39.0-53.0) L Mean Corpuscular Volume 100 fL (79-100) Mean Corpuscular Hemoglobin 34 pg (25-35) Mean Corpuscular Hemoglobin Concent 34 g/dL (31-37) Red Cell Distribution Width 14.9 % (11.5-14.5) H Platelet Count 117 x10^3/uL (140-400) L Neutrophils (%) (Auto) 86 % (31-73) H Lymphocytes (%) (Auto) 10 % (24-48) L Monocytes (%) (Auto) 4 % (0-9) Eosinophils (%) (Auto) 0 % (0-3) Basophils (%) (Auto) 0 % (0-3) Neutrophils # (Auto) 5.6 x10^3/uL (1.8-7.7) Lymphocytes # (Auto) 0.7 x10^3/uL (1.0-4.8) L Monocytes # (Auto) 0.3 x10^3/uL (0.0-1.1) Eosinophils # (Auto) 0.0 x10^3/uL (0.0-0.7) Basophils # (Auto) 0.0 x10^3/uL (0.0-0.2) Sodium Level 155 mmol/L (136-145) H Potassium Level 3.7 mmol/L (3.5-5.1) Chloride Level 116 mmol/L (98-107) H Carbon Dioxide Level 19 mmol/L (21-32) L Anion Gap 20 (6-14) H Blood Urea Nitrogen 58 mg/dL (8-26) H Creatinine 0.7 mg/dL (0.7-1.3) Estimated GFR (Cockcroft-Gault) 114.3 BUN/Creatinine Ratio 83 (6-20) H Glucose Level 310 mg/dL (70-99) H Calcium Level 8.5 mg/dL (8.5-10.1) Total Bilirubin 1.0 mg/dL (0.2-1.0) Aspartate Amino Transferase (AST) 19 U/L (15-37) Alanine Aminotransferase (ALT) 18 U/L (16-63) Alkaline Phosphatase 46 U/L (46-116) Total Protein 6.1 g/dL (6.4-8.2) L Albumin 2.2 g/dL (3.4-5.0) L Albumin/Globulin Ratio 0.6 (1.0-1.7) L Laboratory Tests 04/26/20 04:15 Laboratory Tests 04/26/20 04:15 ASSESSMENT & PLAN A&P Plan as noted above This note was created using [employer] and may have omissions and/or errors due to the nature of 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 Justicifation of Admission Dx: Justifications for Admission: Justification of Admission Dx: Yes Respiratory Failure: Severe Resp Distress TREVOR AVENDANO MD Apr 26, 2020 15:03
[2020-04-26] MEDS: INSULIN LISPRO 300 UNITS/3 ML VIAL. SQ SCH ×2 (17:11→22:00)
[2020-04-26 19:00] VITALS: BP 138/61
[2020-04-26] MEDS: ASPIRIN ENTERIC COATED 81 MG TABLET.DR. PO SCH (19:57)
[2020-04-26] MEDS: DIVALPROEX DELAYED RELEASE 500 MG TABLET.DR. PO SCH (19:57)
[2020-04-26] MEDS: FLUoxetine HCL 20 MG CAPSULE PO SCH (19:58)
[2020-04-26] MEDS: GABAPENTIN 300 MG CAPSULE. PO SCH (19:58)
--- NOTE | 2020-04-26 22:15 | NUR ---
BEHAVIORAL HEALTH SPECIALIST unable to start IV. Nursing foam cutting supervisor notified. Will have [facility] start [facility] tomorrow per foam cutting supervisor.
[2020-04-26 22:41] VITALS: BP 118/66
[2020-04-27 03:00] VITALS: BP 127/56
[2020-04-27] MEDS: AMINO AC 3%/ELECTROLYTE/GLYCER 1,000 ML IV SCH (04:15)
[2020-04-27] MEDS: PIPERACILLIN/TAZOBACTAM 4.5 GM in IV NORMAL SALINE 100ML 100 ML IV SCH ×4 (04:15→23:55)
[2020-04-27] MEDS: INSULIN LISPRO 300 UNITS/3 ML VIAL. SQ SCH ×5 (06:00→21:59)
[2020-04-27 07:00] VITALS: BP 127/63
[2020-04-27] MEDS: GABAPENTIN 100 MG CAPSULE. PO SCH ×2 (08:00→16:00)
--- NOTE | 2020-04-27 08:35 | PDOC ---
PULMONARY PROGRESS NOTES Subjective Patient not short of air wants to eat Vitals Vital Signs Date Time Temp Pulse Resp B/P (MAP) Pulse Ox O2 Delivery O2 Flow Rate FiO2 04/27/20 07:00 97.4 73 17 127/63 (84) 92 Nasal Cannula 3.0 97.4 General: Alert Lungs: Crackles Cardiovascular: S1, S2 Abdomen: Soft Neuro Exam: Alert Extremities: Other (Mild edema) Skin: Warm Labs Laboratory Tests Test 04/26/20 04:15 04/26/20 15:59 04/26/20 22:27 04/27/20 06:12 White Blood Count 6.5 x10^3/uL (4.0-11.0) Red Blood Count 3.72 x10^6/uL (4.30-5.70) Hemoglobin 12.5 g/dL (13.0-17.5) Hematocrit 37.1 % (39.0-53.0) Mean Corpuscular Volume 100 fL (79-100) Mean Corpuscular Hemoglobin 34 pg (25-35) Mean Corpuscular Hemoglobin Concent 34 g/dL (31-37) Red Cell Distribution Width 14.9 % (11.5-14.5) Platelet Count 117 x10^3/uL (140-400) Neutrophils (%) (Auto) 86 % (31-73) Lymphocytes (%) (Auto) 10 % (24-48) Monocytes (%) (Auto) 4 % (0-9) Eosinophils (%) (Auto) 0 % (0-3) Basophils (%) (Auto) 0 % (0-3) Neutrophils # (Auto) 5.6 x10^3/uL (1.8-7.7) Lymphocytes # (Auto) 0.7 x10^3/uL (1.0-4.8) Monocytes # (Auto) 0.3 x10^3/uL (0.0-1.1) Eosinophils # (Auto) 0.0 x10^3/uL (0.0-0.7) Basophils # (Auto) 0.0 x10^3/uL (0.0-0.2) Sodium Level 155 mmol/L (136-145) Potassium Level 3.7 mmol/L (3.5-5.1) Chloride Level 116 mmol/L (98-107) Carbon Dioxide Level 19 mmol/L (21-32) Anion Gap 20 (6-14) Blood Urea Nitrogen 58 mg/dL (8-26) Creatinine 0.7 mg/dL (0.7-1.3) Estimated GFR (Cockcroft-Gault) 114.3 BUN/Creatinine Ratio 83 (6-20) Glucose Level 310 mg/dL (70-99) Calcium Level 8.5 mg/dL (8.5-10.1) Total Bilirubin 1.0 mg/dL (0.2-1.0) Aspartate Amino Transf (AST/SGOT) 19 U/L (15-37) Alanine Aminotransferase (ALT/SGPT) 18 U/L (16-63) Alkaline Phosphatase 46 U/L (46-116) Total Protein 6.1 g/dL (6.4-8.2) Albumin 2.2 g/dL (3.4-5.0) Albumin/Globulin Ratio 0.6 (1.0-1.7) Glucose (Fingerstick) 205 mg/dL (70-99) 185 mg/dL (70-99) 199 mg/dL (70-99) Test 04/27/20 07:10 Glucose (Fingerstick) 194 mg/dL (70-99) Laboratory Tests Test 04/26/20 15:59 04/26/20 22:27 04/27/20 06:12 04/27/20 07:10 Glucose (Fingerstick) 205 mg/dL (70-99) 185 mg/dL (70-99) 199 mg/dL (70-99) 194 mg/dL (70-99) Medications Active Scripts Medications Dose Route/Sig Max Daily Dose Days Date Category Doxycycline Hyclate 100 Mg Tablet 100 Mg PO BID 10 03/06/20 Rx [Ceftriaxone Sodium] 2 GM Vial 2 Gm IVP Q24H 10 03/06/20 Rx Risperdal (Risperidone) 0.5 Mg Tablet 3.5 Mg PO QHS 02/29/20 Reported Risperdal (Risperidone) 2 Mg Tablet 2 Mg PO DAILY 02/29/20 Reported Divalproex Sodium 250 Mg Tablet.dr 750 Mg PO DAILY 02/29/20 Reported Fluoxetine Hcl 40 Mg Capsule 1 Cap PO HS 02/29/20 Reported Divalproex Sodium 500 Mg Tablet.dr 1,000 Mg PO HS 02/29/20 Reported Ventolin Hfa Inhaler (Albuterol Sulfate) 18 Gm Hfa.aer.ad 2 Puff INH PRN Q4HRS 02/29/20 Reported Oxybutynin Chloride 5 Mg Tablet 1 Tab PO BID 02/29/20 Reported Senokot-S Tablet (Sennosides/Docusate Sodium) 1 Each Tablet 1 Tab PO BID 30 02/29/20 Reported Gabapentin (Gabapentin) 100 Mg Capsule 100 Mg PO DAILY08 02/29/20 Reported Gabapentin (Gabapentin) 300 Mg Capsule 300 Mg PO HS 02/29/20 Reported Donepezil Hcl 10 Mg Tablet 1 Tab PO DAILY 02/29/20 Reported Modafinil 100 Mg Tablet 100 Mg PO DAILY 02/29/20 Reported Multi Vitamin Daily (Multivitamin) 1 Each Tablet 1 Tab PO DAILY 30 02/29/20 Reported Oyster Shell Calcium + D Tab (Calcium Carbonate/Vitamin D3) 1 Each Tablet 1 Tab PO DAILY 30 02/29/20 Reported Gabapentin (Gabapentin) 100 Mg Capsule 100 Mg PO DAILY16 02/29/20 Reported Acetaminophen 325 Mg Tablet 1 Tab PO PRN Q6HRS PRN 30 02/29/20 Reported Potassium Chloride (Potassium Chloride) 20 Meq Tablet.er 20 Meq PO BID 02/29/20 Reported Vitamin E Ointment (Vit E Acetate/Wheat Germ/Aloe) 60 Gm Oint...g. 60 Gm TP HS 06/20/17 Reported Niaspan (Niacin) 1,000 Mg Tab.er.24h 1,000 Mg PO HS 06/20/17 Reported Vitamin D (Cholecalciferol (Vitamin D3)) 2,000 Unit Capsule 2,000 Unit PO HS 06/20/17 Reported Aspir 81 (Aspirin) 81 Mg Tablet.dr 81 Mg PO HS 06/20/17 Reported Comments Impression: Bilateral infiltrates likely atypical pneumonia. Impression . Acute hypoxic respiratory failure likely secondary to atypical pneumonia COVID-19 infection/pneumonia Hypotension Elevated d-dimer, nonspecific Anaphylactic reaction Thrombocytopenia Severe sepsis Right lower extremity cellulitis Cerebral palsy Obstructive sleep apnea Dysphasia Seizure disorder Dysphasia Possible pulmonary edema Bilateral venous Doppler 1. No thrombus is demonstrated of the visualized of the right lower extremity veins, right peroneal vein not seen. Plan . Speech to follow-up, I am okay with pleasure feedings if patient wishes to do so, at the risk of aspiration 02 titration DVT prophylaxis Continue support with oxygen supplementation Patient was treated for his allergic reaction/anaphylaxis with steroids epine phrine and breathing treatments and Pepcid. Continue empiric antibiotics cont solumedrol 40 bid Continue home regiment for seizure disorder and mood disorder DVT and GI prophylaxis Discussed with RN and RT GISELA MONTANEZ MD Apr 27, 2020 08:35
[2020-04-27] MEDS: DOXYCYCLINE HYCLATE 100 MG in IV DEXTROSE 5% 100ML 100 ML IV SCH ×2 (09:00→20:34)
[2020-04-27] MEDS: CHOLECALCIFEROL (VITAMIN D3) 5,000 UNIT CAPSULE PO SCH (09:00)
[2020-04-27] MEDS: diphenhydrAMINE 50 MG/ML VIAL IVP SCH ×2 (09:00→20:33)
[2020-04-27] MEDS: LACTOBACILLUS RHAMNOSUS GG 1 CAPSULE. PO SCH ×2 (09:00→20:00)
[2020-04-27] MEDS: methylPREDNISolone SOD SUCC PF 40 MG/ML VIAL. IV SCH ×2 (09:00→20:33)
[2020-04-27] MEDS: OXYBUTYNIN CHLORIDE 5 MG TABLET PO SCH ×2 (09:00→20:00)
[2020-04-27] MEDS: DIVALPROEX DELAYED RELEASE 250 MG TABLET.DR. PO SCH (09:00)
[2020-04-27] MEDS: CALCIUM CARB/VIT D3 500/200 TABLET. PO SCH (09:00)
[2020-04-27] MEDS: SENNOSIDES/DOCUSATE 8.6/50MG TABLET. PO SCH ×2 (09:00→20:00)
[2020-04-27] MEDS: ZINC SULFATE 220 MG CAPSULE. PO SCH (09:00)
[2020-04-27] MEDS: ENOXAPARIN 40 MG/0.4 ML SYRINGE. SQ SCH ×2 (09:13→20:34)
[2020-04-27 09:35] LABS: BASO % 0 % (0-3); EOS % 0 % (0-3); HEMATOCRIT 39.3 % (39.0-53.0); HEMOGLOBIN 12.9 g/dL (13.0-17.5); LYMPH # 2.2 x10^3/uL (1.0-4.8); LYMPH % 14 % (24-48); MEAN CORPUSCULAR HEMOGLOBIN 33 pg (25-35); MEAN CORPUSCULAR HGB CONC 33 g/dL (31-37); MEAN CORPUSCULAR VOLUME 101 fL (79-100); MONO # 0.4 x10^3/uL (0.0-1.1); MONO % 2 % (0-9); NEUT % 84 % (31-73); PLATELET COUNT 83 x10^3/uL (140-400); RED BLOOD COUNT 3.92 x10^6/uL (4.30-5.70); RED CELL DISTRIBUTION WIDTH 15.1 % (11.5-14.5); WHITE BLOOD COUNT 15.6 x10^3/uL (4.0-11.0)
--- NOTE | 2020-04-27 09:54 | PDOC ---
Objective: Objective: Reviewed chart - ?for PICC placement today Per nurse - spoke w/ family Sat, "reconsidering PEG," request to talk w/ GI. Vital Signs: Vital Signs Date Time Temp Pulse Resp B/P (MAP) Pulse Ox O2 Delivery O2 Flow Rate FiO2 04/27/20 07:00 97.4 73 17 127/63 (84) 92 Nasal Cannula 3.0 97.4 Labs: Laboratory Tests Test 04/26/20 15:59 04/26/20 22:27 04/27/20 06:12 04/27/20 07:10 Glucose (Fingerstick) 205 mg/dL 185 mg/dL 199 mg/dL 194 mg/dL Test 04/27/20 09:20 White Blood Count 15.6 x10^3/uL Red Blood Count 3.92 x10^6/uL Hemoglobin 12.9 g/dL Hematocrit 39.3 % Mean Corpuscular Volume 101 fL Mean Corpuscular Hemoglobin 33 pg Mean Corpuscular Hemoglobin Concent 33 g/dL Red Cell Distribution Width 15.1 % Platelet Count 83 x10^3/uL Neutrophils (%) (Auto) 84 % Lymphocytes (%) (Auto) 14 % Monocytes (%) (Auto) 2 % Eosinophils (%) (Auto) 0 % Basophils (%) (Auto) 0 % Neutrophils # (Auto) 13.0 x10^3/uL Lymphocytes # (Auto) 2.2 x10^3/uL Monocytes # (Auto) 0.4 x10^3/uL Eosinophils # (Auto) 0.0 x10^3/uL Basophils # (Auto) 0.0 x10^3/uL Platelet Estimate Pending PE: GEN: in COVID isolation LUNGS: 3L NC HEART: RR ABD: non-distended NEURO/PSYCH: does not verbalize A/P: Resp failure, COVID19+ Dysphagia/aspiration CP Leukocytosis, ACD, hypernatremia -- Still COVID-19+. Will attempt to communicate w/ sister. Justicifation of Admission Dx: Justifications for Admission: Justification of Admission Dx: Yes Respiratory Failure: Severe Resp Distress RUDY CORONA Apr 27, 2020 09:53
[2020-04-27 10:06] LABS: ALBUMIN 2.3 g/dL (3.4-5.0); ALBUMIN/GLOBULIN RATIO 0.7 (1.0-1.7); CALCIUM 8.3 mg/dL (8.5-10.1); CREATININE 0.6 mg/dL (0.7-1.3); GFR 136.5; POTASSIUM 3.2 mmol/L (3.5-5.1); TOTAL BILIRUBIN 1.1 mg/dL (0.2-1.0); TOTAL PROTEIN 5.7 g/dL (6.4-8.2)
[2020-04-27 10:47] VITALS: BP 98/51
[2020-04-27 11:16] LABS: % ATYL 1 % (0-0); % BANDS 7 % (0-9); % LYMPHS 6 % (24-48); % METAS 1 % (0-0); % MONOS 1 % (0-10); % SEGS 84 % (35-66)
[2020-04-27 11:17] LABS: PLT ESTIMATE DECREASED (ADEQUATE)
--- NOTE | 2020-04-27 13:18 | NUR ---
SW following. Spoke with RN and reviewed chart. Coordinated care with Dr. Franklin. Spoke with facility SW at [facility] and they are not able to manage an NG tube. Spoke with pt's sister Sandra, who stated pt would not have wanted an NG or PEG tube. Sandra and her sister Kelsey are co-guardians for pt and will talk with Dr. Franklin further, but are open to a referral for in-patient hospice care. SW awaiting family decision and will continue following. Addendum: 04/27/20 at 1632 by RILEY LUNDBERG Spoke with Dr. Franklin who stated pt's family would like a referral for in-patient hospice. TOÑO called Kareem with [facility], , (fax) to request evaluation. Pt to discharge to [facility] with hospice on 04/28/2020 if pt does not meet criteria for in-patient hospice. Kareem to call pt's sister Sandra to get consents signed.
--- NOTE | 2020-04-27 14:55 | RAD ---
PORTABLE CHEST 1V History: PICC placement Comparison: Exam the same day at 2:01 PM, this exam timed at 2:09 PM Findings: Single view of the chest is submitted. There is again left upper extremity PICC although has been repositioned with the tip now in the region of expected mid aspect of the superior vena cava. There is again airspace opacity of the mid to inferior left hemithorax, also greater degree of consolidation of the medial left lung base with partially obscured left hemidiaphragm. No pneumothorax is identified. There is again degree of elevation of the right hemidiaphragm. Heart size is similar. Impression: 1. Tip of the left upper extremity PICC is now in the region of expected mid aspect of the superior vena cava. 2. There is again infiltrate of the mid to inferior left hemithorax. Electronically signed by: Gigi Santamaria MD (04/27/2020 2:52 PM) [id number]
--- NOTE | 2020-04-27 14:57 | RAD ---
PORTABLE CHEST 1V History: PICC placement Comparison: April 18, 2020 Findings: Single view of the chest is submitted. There is now left upper extremity PICC although the tip courses superiorly rather than inferiorly. There is again airspace opacity of the mid to inferior left hemithorax, increased at the medial left lung base and also of the mid left hemithorax. There is again degree of elevation of the right hemidiaphragm. Heart size is similar. Impression: 1. There is left upper extremity PICC with tip directed superiorly rather than inferiorly, has already been repositioned since time of image acquisition and interpretation of this exam. 2. There is infiltrate of the left hemithorax which has increased. Electronically signed by: Gigi Santamaria MD (04/27/2020 2:54 PM) [id number]
[2020-04-27 15:00] VITALS: BP 99/54
--- NOTE | 2020-04-27 16:12 | NUR ---
Wound Care Photo assessment done due to COVID 19 status. Pt has buttock maceration with open areas that appears to have scabbed over. Recommend A&D ointment BID and PRN. WC will continue to follow for possible changes.
--- NOTE | 2020-04-27 17:21 | PDOC ---
[facility] PROGRESS NOTE Chief Complaint Chief Complaint Severe oral pharyngeal dysphagia Acute electrolyte derangements COVID 19 infection Cerebral palsy acute hypoxic respiratory failure sepsis acute on chronic encephalopathy, cerebral palsy, [facility] resident at baseline obese, BMI 33 severe malnutrition, POA History of Present Illness History of Present Illness April 27, 2020 Patient seen and examined at bedside. Discussed with RN and case management. Patient did not pass formal swallow study. Family does not agree with NG tube or PEG tube placement. Agrees to proceed with comfort care. Case management will call hospice heri for hospice evaluation. PICC line placed today for fluid replacement. Will DC any life-prolonging orders once hospice has been approved. 04/24/2020 Patient seen and examined Discussed with RN Discussed with case management The patient asked me if he could ask a question I said sure He said "can I have a bottle of Coke" The knee asked for 2 bottles Seems to be at his baseline to me His discharge was held yesterday because of not passing his swallow study I think he probably is at his baseline we will go ahead and let him go back to his facility I doubt he wants a PEG tube? 04/23/2020 Patient seen and examined He is resting with no apparent distress Chart reviewed Discussed with case management 04/22/2020 Patient seen and examined He is on 5 L of oxygen He is on the COVID-19 isolation unit Discussed with case management Discussed with RN Chart reviewed 04/21. weaning oxygen well, try PO intake today, may transfer out of ICU soon doing better DNR made 2 days ago, no visitor policy in hospital, COVID 19 patient cont current appears stable, hypoxic Vitals/I&O Vitals/I&O: Vital Signs Date Time Temp Pulse Resp B/P (MAP) Pulse Ox O2 Delivery O2 Flow Rate FiO2 04/27/20 15:00 97.4 74 17 99/54 (69) 93 Nasal Cannula 3.0 97.4 I & O 04/26/20 04/26/20 04/27/20 15:00 23:00 07:00 Intake Total 0 ml Output Total 350 ml Balance -350 ml 0 ml Physical Exam Physical Exam: In general the patient is laying in bed appears comfortable but agitated tells me he wants of water. HEENT exam is notable for a nontender ballotable mass on his forehead consistent with lipoma. He has very dry mucous membranes and is breathing through his open mouth quite dyspneic as well Chest is clear to auscultation anteriorly though diminished air entry throughout Heart S1-S2 normal regular rate and rhythm no murmurs or gallops are noted Abdomen soft nontender nondistended no masses organomegaly noted Extremity exam is notable for 2+ bipedal edema right greater than left General: Alert, Cooperative, No acute distress Heart: Regular rate (SR), Rubs Lungs: Crackles Abdomen: Soft Extremities: No cyanosis Skin: No significant lesion Labs Labs: Laboratory Tests Test 04/26/20 22:27 04/27/20 06:12 04/27/20 07:10 04/27/20 09:20 Glucose (Fingerstick) 185 mg/dL (70-99) 199 mg/dL (70-99) 194 mg/dL (70-99) White Blood Count 15.6 x10^3/uL (4.0-11.0) Red Blood Count 3.92 x10^6/uL (4.30-5.70) Hemoglobin 12.9 g/dL (13.0-17.5) Hematocrit 39.3 % (39.0-53.0) Mean Corpuscular Volume 101 fL (79-100) Mean Corpuscular Hemoglobin 33 pg (25-35) Mean Corpuscular Hemoglobin Concent 33 g/dL (31-37) Red Cell Distribution Width 15.1 % (11.5-14.5) Platelet Count 83 x10^3/uL (140-400) Neutrophils (%) (Auto) 84 % (31-73) Lymphocytes (%) (Auto) 14 % (24-48) Monocytes (%) (Auto) 2 % (0-9) Eosinophils (%) (Auto) 0 % (0-3) Basophils (%) (Auto) 0 % (0-3) Neutrophils # (Auto) 13.0 x10^3/uL (1.8-7.7) Lymphocytes # (Auto) 2.2 x10^3/uL (1.0-4.8) Monocytes # (Auto) 0.4 x10^3/uL (0.0-1.1) Eosinophils # (Auto) 0.0 x10^3/uL (0.0-0.7) Basophils # (Auto) 0.0 x10^3/uL (0.0-0.2) Segmented Neutrophils % 84 % (35-66) Band Neutrophils % 7 % (0-9) Lymphocytes % 6 % (24-48) Atypical Lymphocytes % (Manual) 1 % (0-0) Monocytes % 1 % (0-10) Metamyelocytes % 1 % (0-0) Platelet Estimate Decreased (ADEQUATE) Sodium Level 160 mmol/L (136-145) Potassium Level 3.2 mmol/L (3.5-5.1) Chloride Level 121 mmol/L (98-107) Carbon Dioxide Level 21 mmol/L (21-32) Anion Gap 18 (6-14) Blood Urea Nitrogen 53 mg/dL (8-26) Creatinine 0.6 mg/dL (0.7-1.3) Estimated GFR (Cockcroft-Gault) 136.5 BUN/Creatinine Ratio 88 (6-20) Glucose Level 223 mg/dL (70-99) Calcium Level 8.3 mg/dL (8.5-10.1) Total Bilirubin 1.1 mg/dL (0.2-1.0) Aspartate Amino Transf (AST/SGOT) 13 U/L (15-37) Alanine Aminotransferase (ALT/SGPT) 18 U/L (16-63) Alkaline Phosphatase 52 U/L (46-116) Total Protein 5.7 g/dL (6.4-8.2) Albumin 2.3 g/dL (3.4-5.0) Albumin/Globulin Ratio 0.7 (1.0-1.7) Test 04/27/20 16:09 Glucose (Fingerstick) 197 mg/dL (70-99) Assessment and Plan Assessmemt and Plan Problems Medical Problems: (1) 2019 novel coronavirus disease (COVID-19) Status: Acute (2) Anaphylactic reaction Status: Acute (3) Respiratory failure, acute Status: Acute Labs reviewed below Comment Review of Relevant I have reviewed the following items nara (where applicable) has been applied. Justicifation of Admission Dx: Justifications for Admission: Justification of Admission Dx: Yes Respiratory Failure: Severe Resp Distress ARIELLA FREEDMAN MD Apr 27, 2020 17:21
[2020-04-27] MEDS: VALPROIC ACID (AS SODIUM SALT) 500 MG in IV DEXTROSE 5% 50 ML IV SCH ×2 (17:36→22:36)
[2020-04-27] MEDS: IV DEXTROSE 5 %-0.45 % NACL 1,000 ML IV SCH (17:36)
[2020-04-27 19:48] VITALS: BP 148/91
[2020-04-27] MEDS: FLUoxetine HCL 20 MG CAPSULE PO SCH (20:00)
[2020-04-27] MEDS: ASPIRIN ENTERIC COATED 81 MG TABLET.DR. PO SCH (20:00)
[2020-04-27] MEDS: GABAPENTIN 300 MG CAPSULE. PO SCH (20:00)
[2020-04-27 23:18] VITALS: BP 127/61
[2020-04-28 01:08] LABS: HEMOGLOBIN A1C 6.8 % (4.8-5.6)
[2020-04-28] MEDS: IV DEXTROSE 5 %-0.45 % NACL 1,000 ML IV SCH (02:47)
[2020-04-28 03:00] VITALS: BP 133/72
[2020-04-28] MEDS: PIPERACILLIN/TAZOBACTAM 4.5 GM in IV NORMAL SALINE 100ML 100 ML IV SCH ×2 (06:00→12:14)
[2020-04-28] MEDS: INSULIN LISPRO 300 UNITS/3 ML VIAL. SQ SCH ×2 (06:00→12:16)
[2020-04-28] MEDS: VALPROIC ACID (AS SODIUM SALT) 500 MG in IV DEXTROSE 5% 50 ML IV SCH (06:00)
[2020-04-28 07:00] VITALS: BP 109/52
[2020-04-28] MEDS: GABAPENTIN 100 MG CAPSULE. PO SCH (08:00)
[2020-04-28] MEDS: LACTOBACILLUS RHAMNOSUS GG 1 CAPSULE. PO SCH (08:33)
[2020-04-28] MEDS: OXYBUTYNIN CHLORIDE 5 MG TABLET PO SCH (08:34)
[2020-04-28] MEDS: ZINC SULFATE 220 MG CAPSULE. PO SCH (08:34)
[2020-04-28] MEDS: CHOLECALCIFEROL (VITAMIN D3) 5,000 UNIT CAPSULE PO SCH (08:34)
[2020-04-28] MEDS: CALCIUM CARB/VIT D3 500/200 TABLET. PO SCH (08:34)
[2020-04-28] MEDS: SENNOSIDES/DOCUSATE 8.6/50MG TABLET. PO SCH (08:34)
[2020-04-28] MEDS: diphenhydrAMINE 50 MG/ML VIAL IVP SCH (08:39)
[2020-04-28] MEDS: ENOXAPARIN 40 MG/0.4 ML SYRINGE. SQ SCH (08:39)
[2020-04-28] MEDS: methylPREDNISolone SOD SUCC PF 40 MG/ML VIAL. IV SCH (08:39)
[2020-04-28] MEDS: DOXYCYCLINE HYCLATE 100 MG in IV DEXTROSE 5% 100ML 100 ML IV SCH (08:40)
--- NOTE | 2020-04-28 09:16 | PDOC ---
PULMONARY PROGRESS NOTES Subjective Patient not short of air wants to eat Vitals Vital Signs Date Time Temp Pulse Resp B/P (MAP) Pulse Ox O2 Delivery O2 Flow Rate FiO2 04/28/20 07:00 97.6 68 19 109/52 (71) 96 Nasal Cannula 3.0 97.6 General: Alert Lungs: Crackles Cardiovascular: S1, S2 Abdomen: Soft Neuro Exam: Alert Extremities: Other (Mild edema) Skin: Warm Labs Laboratory Tests Test 04/26/20 15:59 04/26/20 22:27 04/27/20 06:12 04/27/20 07:10 Glucose (Fingerstick) 205 mg/dL (70-99) 185 mg/dL (70-99) 199 mg/dL (70-99) 194 mg/dL (70-99) Test 04/27/20 09:20 04/27/20 16:09 04/27/20 21:47 04/28/20 05:28 White Blood Count 15.6 x10^3/uL (4.0-11.0) Red Blood Count 3.92 x10^6/uL (4.30-5.70) Hemoglobin 12.9 g/dL (13.0-17.5) Hematocrit 39.3 % (39.0-53.0) Mean Corpuscular Volume 101 fL (79-100) Mean Corpuscular Hemoglobin 33 pg (25-35) Mean Corpuscular Hemoglobin Concent 33 g/dL (31-37) Red Cell Distribution Width 15.1 % (11.5-14.5) Platelet Count 83 x10^3/uL (140-400) Neutrophils (%) (Auto) 84 % (31-73) Lymphocytes (%) (Auto) 14 % (24-48) Monocytes (%) (Auto) 2 % (0-9) Eosinophils (%) (Auto) 0 % (0-3) Basophils (%) (Auto) 0 % (0-3) Neutrophils # (Auto) 13.0 x10^3/uL (1.8-7.7) Lymphocytes # (Auto) 2.2 x10^3/uL (1.0-4.8) Monocytes # (Auto) 0.4 x10^3/uL (0.0-1.1) Eosinophils # (Auto) 0.0 x10^3/uL (0.0-0.7) Basophils # (Auto) 0.0 x10^3/uL (0.0-0.2) Segmented Neutrophils % 84 % (35-66) Band Neutrophils % 7 % (0-9) Lymphocytes % 6 % (24-48) Atypical Lymphocytes % (Manual) 1 % (0-0) Monocytes % 1 % (0-10) Metamyelocytes % 1 % (0-0) Platelet Estimate Decreased (ADEQUATE) Sodium Level 160 mmol/L (136-145) Potassium Level 3.2 mmol/L (3.5-5.1) Chloride Level 121 mmol/L (98-107) Carbon Dioxide Level 21 mmol/L (21-32) Anion Gap 18 (6-14) Blood Urea Nitrogen 53 mg/dL (8-26) Creatinine 0.6 mg/dL (0.7-1.3) Estimated GFR (Cockcroft-Gault) 136.5 BUN/Creatinine Ratio 88 (6-20) Glucose Level 223 mg/dL (70-99) Hemoglobin A1c 6.8 % (4.8-5.6) Calcium Level 8.3 mg/dL (8.5-10.1) Total Bilirubin 1.1 mg/dL (0.2-1.0) Aspartate Amino Transf (AST/SGOT) 13 U/L (15-37) Alanine Aminotransferase (ALT/SGPT) 18 U/L (16-63) Alkaline Phosphatase 52 U/L (46-116) Total Protein 5.7 g/dL (6.4-8.2) Albumin 2.3 g/dL (3.4-5.0) Albumin/Globulin Ratio 0.7 (1.0-1.7) Glucose (Fingerstick) 197 mg/dL (70-99) 266 mg/dL (70-99) 333 mg/dL (70-99) Laboratory Tests Test 04/27/20 09:20 04/27/20 16:09 04/27/20 21:47 04/28/20 05:28 White Blood Count 15.6 x10^3/uL (4.0-11.0) Red Blood Count 3.92 x10^6/uL (4.30-5.70) Hemoglobin 12.9 g/dL (13.0-17.5) Hematocrit 39.3 % (39.0-53.0) Mean Corpuscular Volume 101 fL (79-100) Mean Corpuscular Hemoglobin 33 pg (25-35) Mean Corpuscular Hemoglobin Concent 33 g/dL (31-37) Red Cell Distribution Width 15.1 % (11.5-14.5) Platelet Count 83 x10^3/uL (140-400) Neutrophils (%) (Auto) 84 % (31-73) Lymphocytes (%) (Auto) 14 % (24-48) Monocytes (%) (Auto) 2 % (0-9) Eosinophils (%) (Auto) 0 % (0-3) Basophils (%) (Auto) 0 % (0-3) Neutrophils # (Auto) 13.0 x10^3/uL (1.8-7.7) Lymphocytes # (Auto) 2.2 x10^3/uL (1.0-4.8) Monocytes # (Auto) 0.4 x10^3/uL (0.0-1.1) Eosinophils # (Auto) 0.0 x10^3/uL (0.0-0.7) Basophils # (Auto) 0.0 x10^3/uL (0.0-0.2) Segmented Neutrophils % 84 % (35-66) Band Neutrophils % 7 % (0-9) Lymphocytes % 6 % (24-48) Atypical Lymphocytes % (Manual) 1 % (0-0) Monocytes % 1 % (0-10) Metamyelocytes % 1 % (0-0) Platelet Estimate Decreased (ADEQUATE) Sodium Level 160 mmol/L (136-145) Potassium Level 3.2 mmol/L (3.5-5.1) Chloride Level 121 mmol/L (98-107) Carbon Dioxide Level 21 mmol/L (21-32) Anion Gap 18 (6-14) Blood Urea Nitrogen 53 mg/dL (8-26) Creatinine 0.6 mg/dL (0.7-1.3) Estimated GFR (Cockcroft-Gault) 136.5 BUN/Creatinine Ratio 88 (6-20) Glucose Level 223 mg/dL (70-99) Hemoglobin A1c 6.8 % (4.8-5.6) Calcium Level 8.3 mg/dL (8.5-10.1) Total Bilirubin 1.1 mg/dL (0.2-1.0) Aspartate Amino Transf (AST/SGOT) 13 U/L (15-37) Alanine Aminotransferase (ALT/SGPT) 18 U/L (16-63) Alkaline Phosphatase 52 U/L (46-116) Total Protein 5.7 g/dL (6.4-8.2) Albumin 2.3 g/dL (3.4-5.0) Albumin/Globulin Ratio 0.7 (1.0-1.7) Glucose (Fingerstick) 197 mg/dL (70-99) 266 mg/dL (70-99) 333 mg/dL (70-99) Medications Active Scripts Medications Dose Route/Sig Max Daily Dose Days Date Category Doxycycline Hyclate 100 Mg Tablet 100 Mg PO BID 10 03/06/20 Rx [Ceftriaxone Sodium] 2 GM Vial 2 Gm IVP Q24H 10 03/06/20 Rx Risperdal (Risperidone) 0.5 Mg Tablet 3.5 Mg PO QHS 02/29/20 Reported Risperdal (Risperidone) 2 Mg Tablet 2 Mg PO DAILY 02/29/20 Reported Divalproex Sodium 250 Mg Tablet.dr 750 Mg PO DAILY 02/29/20 Reported Fluoxetine Hcl 40 Mg Capsule 1 Cap PO HS 02/29/20 Reported Divalproex Sodium 500 Mg Tablet.dr 1,000 Mg PO HS 02/29/20 Reported Ventolin Hfa Inhaler (Albuterol Sulfate) 18 Gm Hfa.aer.ad 2 Puff INH PRN Q4HRS 02/29/20 Reported Oxybutynin Chloride 5 Mg Tablet 1 Tab PO BID 02/29/20 Reported Senokot-S Tablet (Sennosides/Docusate Sodium) 1 Each Tablet 1 Tab PO BID 30 02/29/20 Reported Gabapentin (Gabapentin) 100 Mg Capsule 100 Mg PO DAILY08 02/29/20 Reported Gabapentin (Gabapentin) 300 Mg Capsule 300 Mg PO HS 02/29/20 Reported Donepezil Hcl 10 Mg Tablet 1 Tab PO DAILY 02/29/20 Reported Modafinil 100 Mg Tablet 100 Mg PO DAILY 02/29/20 Reported Multi Vitamin Daily (Multivitamin) 1 Each Tablet 1 Tab PO DAILY 30 02/29/20 Reported Oyster Shell Calcium + D Tab (Calcium Carbonate/Vitamin D3) 1 Each Tablet 1 Tab PO DAILY 30 02/29/20 Reported Gabapentin (Gabapentin) 100 Mg Capsule 100 Mg PO DAILY16 02/29/20 Reported Acetaminophen 325 Mg Tablet 1 Tab PO PRN Q6HRS PRN 30 02/29/20 Reported Potassium Chloride (Potassium Chloride) 20 Meq Tablet.er 20 Meq PO BID 02/29/20 Reported Vitamin E Ointment (Vit E Acetate/Wheat Germ/Aloe) 60 Gm Oint...g. 60 Gm TP HS 06/20/17 Reported Niaspan (Niacin) 1,000 Mg Tab.er.24h 1,000 Mg PO HS 06/20/17 Reported Vitamin D (Cholecalciferol (Vitamin D3)) 2,000 Unit Capsule 2,000 Unit PO HS 06/20/17 Reported Aspir 81 (Aspirin) 81 Mg Tablet.dr 81 Mg PO HS 06/20/17 Reported Comments Impression: Bilateral infiltrates likely atypical pneumonia. Impression . Acute hypoxic respiratory failure likely secondary to atypical pneumonia COVID-19 infection/pneumonia Hypotension Elevated d-dimer, nonspecific Anaphylactic reaction Thrombocytopenia Severe sepsis Right lower extremity cellulitis Cerebral palsy Obstructive sleep apnea Dysphasia Seizure disorder Dysphasia Possible pulmonary edema Bilateral venous Doppler 1. No thrombus is demonstrated of the visualized of the right lower extremity veins, right peroneal vein not seen. Plan . Speech to follow-up, I am okay with pleasure feedings if patient wishes to do so, at the risk of aspiration 02 titration DVT prophylaxis Continue support with oxygen supplementation Patient was treated for his allergic reaction/anaphylaxis with steroids epinephrine and breathing treatments and Pepcid. Continue empiric antibiotics cont solumedrol 40 bid Continue home regiment for seizure disorder and mood disorder DVT and GI prophylaxis Discussed with RN and RT GISELA MONTANEZ MD Apr 28, 2020 09:16
--- NOTE | 2020-04-28 10:45 | PDOC ---
Objective: Objective: D/w nurse - family to meet w/ Hospice today - likely will return to facility w/ Hospice. Vital Signs: Vital Signs Date Time Temp Pulse Resp B/P (MAP) Pulse Ox O2 Delivery O2 Flow Rate FiO2 04/28/20 07:00 97.6 68 19 109/52 (71) 96 Nasal Cannula 3.0 97.6 Labs: Laboratory Tests Test 04/27/20 16:09 04/27/20 21:47 04/28/20 05:28 Glucose (Fingerstick) 197 mg/dL (70-99) 266 mg/dL (70-99) 333 mg/dL (70-99) PE: deferred exam, pt isolated w/ COVID-19 A/P: Resp failure Dysphagia/aspiration - family does not wish to pursue PEG placement COVID19+ CP -- Plans for Hospice as above. GI will sign off. Please call if needed. Justicifation of Admission Dx: Justifications for Admission: Justification of Admission Dx: Yes Respiratory Failure: Severe Resp Distress RUDY CORONA Apr 28, 2020 10:45
[2020-04-28 11:18] VITALS: BP 120/58
--- NOTE | 2020-04-28 13:12 | SNU/HH DC ---
DISCHARGE ORDERS DISCHARGE INFORMATION: FINAL DIAGNOSIS Problems Medical Problems: (1) 2019 novel coronavirus disease (COVID-19) Status: Acute (2) Anaphylactic reaction Status: Acute (3) Respiratory failure, acute Status: Acute CONDITION ON DISCHARGE: Stable CODE STATUS: Code Status: DNR/DNI RESIDENTIAL: SNF STAY <30 DAYS: Yes HOSPICE: HOSPICE: Yes HOSPICE EVAL & TREAT: Yes LTAC: ADMIT TO LTAC: No POST DISCHARGE ORDERS: ACTIVITY ORDERS: No restrictions WEIGHT BEARING STATUS: No restrictions DIET AFTER DISCHARGE: NPO DISCHARGE MEDICATIONS: Home Meds Discontinued Reported Medications Risperidone (RISPERDAL) 0.5 Mg Tablet, 3.5 MG PO QHS for MOOD STABILIZER, TAB 02/29/20 Risperidone (RISPERDAL) 2 Mg Tablet, 2 MG PO DAILY for MOOD STABILIZER, TAB 02/29/20 Divalproex Sodium (DIVALPROEX SODIUM) 250 Mg Tablet.dr, 750 MG PO DAILY for mood, TAB 02/29/20 Fluoxetine Hcl (FLUOXETINE HCL) 40 Mg Capsule, 1 CAP PO HS for mood, #30 CAP 2 Refills 02/29/20 Divalproex Sodium (DIVALPROEX SODIUM) 500 Mg Tablet.dr, 1000 MG PO HS for seizure, TAB 02/29/20 Albuterol Sulfate (VENTOLIN HFA INHALER) 18 Gm Hfa.aer.ad, 2 PUFF INH PRN Q4HRS for SOA, INHALER 0 Refills 02/29/20 Oxybutynin Chloride (OXYBUTYNIN CHLORIDE) 5 Mg Tablet, 1 TAB PO BID for OAB, #60 TAB 11 Refills 02/29/20 Sennosides/Docusate Sodium (SENOKOT-S TABLET) 1 Each Tablet, 1 TAB PO BID for constipation for 30 Days, #60 TAB 0 Refills 02/29/20 Gabapentin (GABAPENTIN ) 100 Mg Capsule, 100 MG PO DAILY08 for NEUROGENIC PAIN, CAP 02/29/20 Gabapentin (GABAPENTIN ) 300 Mg Capsule, 300 MG PO HS for NEUROGENIC PAIN, CAP 02/29/20 Donepezil Hcl (DONEPEZIL HCL) 10 Mg Tablet, 1 TAB PO DAILY for dementia, #90 TAB 1 Refill 02/29/20 Modafinil (MODAFINIL) 100 Mg Tablet, 100 MG PO DAILY for sleep apnea, TAB 02/29/20 Multivitamin (MULTI VITAMIN DAILY) 1 Each Tablet, 1 TAB PO DAILY for supp for 30 Days, #30 TAB 0 Refills 02/29/20 Calcium Carbonate/Vitamin D3 (OYSTER SHELL CALCIUM + D TAB) 1 Each Tablet, 1 TAB PO DAILY for supp for 30 Days, #30 TAB 0 Refills 02/29/20 Gabapentin (GABAPENTIN ) 100 Mg Capsule, 100 MG PO DAILY16 for NEUROGENIC PAIN, CAP 02/29/20 Acetaminophen (ACETAMINOPHEN) 325 Mg Tablet, 1 TAB PO PRN Q6HRS PRN for PAIN for 30 Days, #30 TAB 0 Refills 02/29/20 Potassium Chloride (POTASSIUM CHLORIDE ) 20 Meq Tablet.er, 20 MEQ PO BID for SUPPLEMENT, TAB.SR 02/29/20 Vit E Acetate/Wheat Germ/Aloe (VITAMIN E OINTMENT) 60 Gm Oint...g., 60 GM TP HS for bilateral legs for dry skin, MISC 06/20/17 Niacin (NIASPAN) 1,000 Mg Tab.er.24h, 1000 MG PO HS, TAB.SR 06/20/17 Cholecalciferol (Vitamin D3) (VITAMIN D) 2,000 Unit Capsule, 2000 UNIT PO HS, CAP 06/20/17 Aspirin (ASPIR 81) 81 Mg Tablet.dr, 81 MG PO HS, TAB 06/20/17 Discontinued Scripts Doxycycline Hyclate (DOXYCYCLINE HYCLATE) 100 Mg Tablet, 100 MG PO BID for cellulitis for 10 Days, #20 TAB Prov:JANNY CULLEN MD 03/06/20 [cefTRIAXone IV Push] 2 GM VIAL No Conflict Check, 2 GM IVP Q24H for cellulitis for 10 Days, #10 EACH Prov:JANNY CULLEN MD 03/06/20 ARIELLA FREEDMAN MD Apr 28, 2020 13:12
--- NOTE | 2020-04-28 13:45 | NUR ---
SW following. Reviewed chart and spoke with RN and CM. Coordinated care with Dr. Franklin. Spoke with [facility] hospice nurse and pt does not meet criteria for in-patient hospice care. Spoke with pt's two sisters to provide support and answer questions. Pt to discharge today to [facility], , (fax) with hospice from [facility]. TOÑO phoned and faxed discharge orders and DON confirmed she received the fax. Pt's sister Sandra to sign hospice consents once pt arrives back at [facility]. RN to call report. TOÑO copied chart to be sent with pt. TOÑO arranged for transport at 1500 via [facility], , (fax). Medical Necessity form completed and faxed. Pt to transport via stretcher with and [facility] verbalized understanding that pt is COVID positive. Family notified of transport time. No further SW needs at this time. Addendum: 04/28/20 at 1554 by RILEY LUNDBERG TOÑO did also phone and fax discharge orders to [facility] hospice, , (fax).
--- NOTE | 2020-04-28 15:31 | NUR ---
Discharge Note: SEGUN WOODSON [address] Discharge instructions and discharge home medications reviewed with Other facility and a copy given. All questions have been answered and understanding verbalized. The following instructions and handouts were given: patient visit report, medication information, education. Discontinued lines and drains: PICC line, tip intact. [facility]. Patient left unit awake, in stable condition, with all personal belongings. Addendum: 04/28/20 at 1542 by LITA OCONNELL RN RN Report called to JUVENTINO Rangel at [facility].
--- NOTE | 2020-04-28 15:34 | PDOC3 ---
[facility]-Discharge Summary Date of Admission: Date of Admission: Apr 18, 2020 Date of Discharge: Date of Discharge: Apr 28, 2020 Admission Diagnosis: Problems: (1) 2019 novel coronavirus disease (COVID-19) (2) Swallowing disorder (3) Cerebral palsy (4) Respiratory failure, acute Discharge Diagnosis: Discharge Diagnosis: Acute respiratory failure COVID positive Oral pharyngeal dysphagia Failure to thrive History of cerebral palsy Obesity class I Consults: Consults: GI, pulmonary, cardiology consulted Hospital Course: Hospital Course: patient is a 64-year-old male who has history of cerebral palsy, asthma, dementia, DRE who lives at a facility and was admitted for shortness of breath. Patient was evaluated by pulmonary for his COVID positive and atypical pneumonia. He was also seen by cardiology for his pauses on telemetry. Patient's hospital course was complicated by oropharyngeal dysphagia in which he was evaluated by gastroenterology for PEG tube placement. However, family did not wish to proceed with unnecessary procedures that would complicate his quality of life and therefore they decided against any other procedures. Family wished to proceed with hospice at this time and he will be discharged to [facility] with hospice to evaluate. Pulmonary and primary team is okay with liberalizing his diet for pleasure feedings. The family understood that this would possibly lead to his aspiration and complication thereof. The rest of his hospital course was uneventful Disposition: Disposition/Orders: D/C to Home w/ Hospice Activity: Activity: Resume previous activity Diet: Diet: NPO Medications: Home Meds Discontinued Reported Medications Risperidone (RISPERDAL) 0.5 Mg Tablet, 3.5 MG PO QHS for MOOD STABILIZER, TAB 02/29/20 Risperidone (RISPERDAL) 2 Mg Tablet, 2 MG PO DAILY for MOOD STABILIZER, TAB 02/29/20 Divalproex Sodium (DIVALPROEX SODIUM) 250 Mg Tablet.dr, 750 MG PO DAILY for mood, TAB 02/29/20 Fluoxetine Hcl (FLUOXETINE HCL) 40 Mg Capsule, 1 CAP PO HS for mood, #30 CAP 2 Refills 02/29/20 Divalproex Sodium (DIVALPROEX SODIUM) 500 Mg Tablet.dr, 1000 MG PO HS for seizure, TAB 02/29/20 Albuterol Sulfate (VENTOLIN HFA INHALER) 18 Gm Hfa.aer.ad, 2 PUFF INH PRN Q4HRS for SOA, INHALER 0 Refills 5/16/20 Oxybutynin Chloride (OXYBUTYNIN CHLORIDE) 5 Mg Tablet, 1 TAB PO BID for OAB, #60 TAB 11 Refills 02/29/20 Sennosides/Docusate Sodium (SENOKOT-S TABLET) 1 Each Tablet, 1 TAB PO BID for constipation for 30 Days, #60 TAB 0 Refills 02/29/20 Gabapentin (GABAPENTIN ) 100 Mg Capsule, 100 MG PO DAILY08 for NEUROGENIC PAIN, CAP 02/29/20 Gabapentin (GABAPENTIN ) 300 Mg Capsule, 300 MG PO HS for NEUROGENIC PAIN, CAP 02/29/20 Donepezil Hcl (DONEPEZIL HCL) 10 Mg Tablet, 1 TAB PO DAILY for dementia, #90 TAB 1 Refill 02/29/20 Modafinil (MODAFINIL) 100 Mg Tablet, 100 MG PO DAILY for sleep apnea, TAB 02/29/20 Multivitamin (MULTI VITAMIN DAILY) 1 Each Tablet, 1 TAB PO DAILY for supp for 30 Days, #30 TAB 0 Refills 02/29/20 Calcium Carbonate/Vitamin D3 (OYSTER SHELL CALCIUM + D TAB) 1 Each Tablet, 1 TAB PO DAILY for supp for 30 Days, #30 TAB 0 Refills 02/29/20 Gabapentin (GABAPENTIN ) 100 Mg Capsule, 100 MG PO DAILY16 for NEUROGENIC PAIN, CAP 02/29/20 Acetaminophen (ACETAMINOPHEN) 325 Mg Tablet, 1 TAB PO PRN Q6HRS PRN for PAIN for 30 Days, #30 TAB 0 Refills 02/29/20 Potassium Chloride (POTASSIUM CHLORIDE ) 20 Meq Tablet.er, 20 MEQ PO BID for SUPPLEMENT, TAB.SR 02/29/20 Vit E Acetate/Wheat Germ/Aloe (VITAMIN E OINTMENT) 60 Gm Oint...g., 60 GM TP HS for bilateral legs for dry skin, MISC 06/20/17 Niacin (NIASPAN) 1,000 Mg Tab.er.24h, 1000 MG PO HS, TAB.SR 06/20/17 Cholecalciferol (Vitamin D3) (VITAMIN D) 2,000 Unit Capsule, 2000 UNIT PO HS, CAP 06/20/17 Aspirin (ASPIR 81) 81 Mg Tablet.dr, 81 MG PO HS, TAB 06/20/17 Discontinued Scripts Doxycycline Hyclate (DOXYCYCLINE HYCLATE) 100 Mg Tablet, 100 MG PO BID for cellulitis for 10 Days, #20 TAB Prov:JANNY CULLEN MD 03/06/20 [cefTRIAXone IV Push] 2 GM VIAL No Conflict Check, 2 GM IVP Q24H for cellulitis for 10 Days, #10 EACH Prov:JANNY CULLEN MD 03/06/20 Discontinued Medications Acetaminophen (Acetaminophen), 1 TAB PO PRN Q6HRS PRN for PAIN, (Reported) Albuterol Sulfate (Ventolin Hfa Inhaler), 2 PUFF INH PRN Q4HRS, (Reported) Aspirin (Aspir 81), 81 MG PO HS, (Reported) Calcium Carbonate/Vitamin D3 (Oyster Shell Calcium + D Tab), 1 TAB PO DAILY, (Reported) Cholecalciferol (Vitamin D3) (Vitamin D), 2,000 UNIT PO HS, (Reported) Divalproex Sodium (Divalproex Sodium), 1,000 MG PO HS, (Reported) Divalproex Sodium (Divalproex Sodium), 750 MG PO DAILY, (Reported) Donepezil Hcl (Donepezil Hcl), 1 TAB PO DAILY, (Reported) Doxycycline Hyclate (Doxycycline Hyclate), 100 MG PO BID Fluoxetine Hcl (Fluoxetine Hcl), 1 CAP PO HS, (Reported) Gabapentin (Gabapentin ), 100 MG PO DAILY16, (Reported) Gabapentin (Gabapentin ), 300 MG PO HS, (Reported) Gabapentin (Gabapentin ), 100 MG PO DAILY08, (Reported) Modafinil (Modafinil), 100 MG PO DAILY, (Reported) Multivitamin (Multi Vitamin Daily), 1 TAB PO DAILY, (Reported) Niacin (Niaspan), 1,000 MG PO HS, (Reported) Oxybutynin Chloride (Oxybutynin Chloride), 1 TAB PO BID, (Reported) Potassium Chloride (Potassium Chloride ), 20 MEQ PO BID, (Reported) Risperidone (Risperdal), 2 MG PO DAILY, (Reported) Risperidone (Risperdal), 3.5 MG PO QHS, (Reported) Sennosides/Docusate Sodium (Senokot-S Tablet), 1 TAB PO BID, (Reported) Vit E Acetate/Wheat Germ/Aloe (Vitamin E Ointment), 60 GM TP HS, (Reported) [Ceftriaxone Sodium], 2 GM IVP Q24H Justicifation of Admission Dx: Justifications for Admission: Justification of Admission Dx: Yes Respiratory Failure: Severe Resp Distress ARIELLA FREEDMAN MD Apr 28, 2020 15:34
== END 2020-04-28 15:15 | disposition hospice, inpatient (51) | DRG 871 ==
LOC: ER 13:30 → 1 WEST ICU 15:20 → 6 SOUTH 04-21 17:02
PROVIDERS: ADMIT Internal Medicine; ATTEND Internal Medicine
PROC: 02HV33Z Insertion of Infusion Device into Superior Vena Cava, Percutaneous Approach (ICD-10-PCS; principal; 2020-04-24)
DX: A41.89 Other specified sepsis (principal); U07.1 COVID-19; J96.01 Acute respiratory failure with hypoxia; E43 Unspecified severe protein-calorie malnutrition; J12.89 Other viral pneumonia; I50.31 Acute diastolic (congestive) heart failure; T78.2XXA Anaphylactic shock, unspecified, initial encounter; G93.40 Encephalopathy, unspecified; K86.1 Other chronic pancreatitis; L03.115 Cellulitis of right lower limb; N39.0 Urinary tract infection, site not specified; D69.6 Thrombocytopenia, unspecified; E66.9 Obesity, unspecified; E78.5 Hyperlipidemia, unspecified; E87.6 Hypokalemia; F03.90 Unspecified dementia, unspecified severity, without behavioral disturbance, psychotic disturbance, mood disturbance, and anxiety; G40.909 Epilepsy, unspecified, not intractable, without status epilepticus; G47.33 Obstructive sleep apnea (adult) (pediatric); G80.9 Cerebral palsy, unspecified; I49.8 Other specified cardiac arrhythmias; J45.909 Unspecified asthma, uncomplicated; R13.10 Dysphagia, unspecified; R47.02 Dysphasia; R65.20 Severe sepsis without septic shock; Z68.33 Body mass index [BMI] 33.0-33.9, adult; Z66 Do not resuscitate; Z78.9 Other specified health status; Z83.3 Family history of diabetes mellitus; Z86.19 Personal history of other infectious and parasitic diseases; F41.9 Anxiety disorder, unspecified; M19.90 Unspecified osteoarthritis, unspecified site; I11.0 Hypertensive heart disease with heart failure
CPT/HCPCS: 36415; 36569; 36600; 71045; 80048; 80053; 81001; 82550; 82805; 82962; 83036; 83605; 83615; 83735; 83880; 84132; 84443; 84484; 85007; 85025; 85379; 86140; 87040; 87086; 93005; 93971; 94640; 96372; 96374; 96375; J0171; J0456; J0696; J1100; J1200; J1650; J1815; J1940; J2543; J2920; J3480; J3490; J7030; J7042; J7050; J7060; 92526-GN; 92610-GN; 99291-25; G0378; J7613; U0003-CS